=== PATIENT | male | born 1995 | race Hispanic/Latino ===

== ENCOUNTER 2018-09-07 17:36 | Inpatient (IN) | payer SELFPAY ==
[2018-09-07 18:49] LABS: Hemoglobin 5.4 g/dL (14.0-18.0); Mean Corpuscular HGB CONC 34.5 g/dL (32.0-36.0); Mean Corpuscular Volume 81.2 fL (78.0-98.0); Mean Platelet Volume 9.1 fL (7.4-10.4); Platelet Count 77 thou/uL (130-400); RBC Distribution Width 11.7 % (11.5-14.5); Red Blood Cell (RBC) Count 1.91 mill/uL (4.70-6.10); White Blood Cell (WBC) Count 3.7 thou/uL (4.8-10.8)
[2018-09-07 19:03] LABS: #Lymphocytes 0.6 thou/uL (1.20-3.40); #Monocytes 0.2 thou/uL (0.11-0.59); #Neutrophils 2.8 thou/uL (1.40-6.50); %Basophils 0.9 % (0.0-1.0); %Eosinophils 0.3 % (0.0-10.0); %Lymphocytes 15.9 % (21.0-51.0); %Monocytes 6.5 % (0.0-10.0); %Neutrophils 76.4 % (42.0-75.0); Elliptocytes SLIGHT = 2-5 cells (100X) (0-1/hpf); MDiff Complete? YES; Platelet Morphology Comment Appears Decreased
[2018-09-07 19:06] LABS: ALT (SGPT) 20 U/L (8-55); AST (SGOT) 12 U/L (5-34); Albumin 4.1 g/dL (3.5-5.0); Alkaline Phosphatase 64 U/L (40-150); Anion Gap 35 mmol/L (10-20); Bilirubin, Total 0.8 mg/dL (0.2-1.2); Calcium 6.4 mg/dL (7.8-10.44); Chloride 89 mmol/L (98-107); Globulin 2.7 g/dL (2.4-3.5); Glucose 97 mg/dL (70-105); Potassium 4.7 mmol/L (3.5-5.1); Protein, Total 6.8 g/dL (6.0-8.3); Sodium 127 mmol/L (136-145)
[2018-09-07 19:19] LABS: BUN (Urea Nitrogen) 263 mg/dL (8.9-20.6); Calc. Creatinine Clearance 0 mL/min (70-130); Carbon Dioxide 8 mmol/L (22-29); Estimated GFR-MDRD 2
[2018-09-07 20:07] LABS: INR-International Normal Ratio 1.3; PTT 34.4 SEC (22.9-36.1); Prothrombin Time 16.6 SEC (12.0-14.7)
[2018-09-07] MEDS ORDERED: Acetaminophen 325 MG TAB PO PRN (20:36)
[2018-09-07] MEDS ORDERED: Zolpidem Tartrate 5 MG TAB PO PRN (20:36)
[2018-09-07] MEDS ORDERED: Ondansetron PF 4 MG/2 ML Vial IVP PRN (20:36)
--- NOTE | 2018-09-07 21:18 | ULT ---
ULTRASOUND RENAL BILATERAL STANDARD 09/07/18 HISTORY: Renal failure. COMPARISON: None. FINDINGS: The kidneys are small and echogenic. No hydronephrosis. Right kidney measures 6 cm in length and left kidney measures 8 cm in length. Prevoid urinary bladder volume is 94 mL. IMPRESSION: Increased echotexture of small bilateral kidneys suggesting chronic medical renal disease. No eviden ce of obstructive uropathy. POS: MCKAYLA
[2018-09-07 21:30] LABS: Hemoglobin 5.4 g/dL (14.0-18.0); Reticulocyte Count 3.2 % (0.5-1.5)
[2018-09-07 21:36] LABS: MONO NEGATIVE CONTROL ZONE White (Negative) (White); Mononucleosis NEGATIVE (NEGATIVE)
[2018-09-07 21:37] LABS: MONO POSITIVE CONTROL Pink Line (Positive) (PINK/RED)
[2018-09-07 21:50] LABS: Elliptocytes MODERATE= 6-15 cells (100X) (0-1/hpf); Eosinophils 2 % (0-10); Lymphocytes 26 % (21-51); MDiff Complete? YES; Mean Corpuscular HGB CONC 35.5 g/dL (32.0-36.0); Mean Corpuscular Hemoglobin 28.3 pg (27.0-31.0); Mean Corpuscular Volume 79.7 fL (78.0-98.0); Mean Platelet Volume 9.2 fL (7.4-10.4); Neutrophil 72 % (42-75); Ovalocytes SLIGHT = 2-5 cells (100X) (0-1/hpf); Platelet Count 74 thou/uL (130-400); Platelet Morphology Comment Appears Decreased; RBC Distribution Width 11.7 % (11.5-14.5); Red Blood Cell (RBC) Count 1.92 mill/uL (4.70-6.10); White Blood Cell (WBC) Count 3.9 thou/uL (4.8-10.8)
[2018-09-07 23:55] LABS: Bilirubin Negative (Negative); Blood, Urine Small (Negative); Clarity CLEAR (Clear); Glucose, Urine (Dipstick) 100 mg/dL (Negative); Leukocyte Negative (Negative); Nitrite Negative (Negative); Protein, Urine (Dipstick) > or equal to 300 mg/dL (Neg-Trace); Specific Gravity, Urine 1.011 (1.002-1.036); Urobilinogen 0.2 mg/dL (0.2-1.0); pH, Urine 5.5 (5.0-9.0)
[2018-09-07 23:58] LABS: Bacteria/HPF None Seen HPF (None Seen); Hyaline Casts/LPF 0-3 HYALINE CAST LPF (0-3 Hyaline); Pathc Cast-AUWi Flag 0.13 (0-2.49); RBC/HPF 0-3 HPF (0-3); Squamous Epithelial 0-3 HPF (0-3)
[2018-09-08] MEDS ORDERED: cloNIDine 0.1 MG TAB ONE (00:16)
[2018-09-08] MEDS: cloNIDine 0.1 MG TAB PO PRN ×2 (00:20→22:21)
--- NOTE | 2018-09-08 01:57 | HP ---
ADMITTING COMPLAINT: Sent in from outside facility. HISTORY OF PRESENT ILLNESS: This is a 23-year-old male who says that over the last 3 to 4 days, he has just not been feeling well, and over the past 2 to 3 weeks, he has been having changes in taste, loss of appetite as well as sleep pattern reversal, and random shaking that he has noted in his hands. The patient states that he went to his PCP who bobbi labs today and told him immediately come to the emergency room. The patient had repeat blood work done in the emergency room and was found to be pancytopenic with WBC count of 3.7, hemoglobin of 5.4, and platelet count of 77. Of note, the patient was found to have normal coagulation panel; however, the basic metabolic panel shows sodium of 127, potassium 4.7, bicarb of 8, chloride of 89, anion gap of 35, BUN of 263, and creatinine too high to count. Urinalysis pending. The patient stated that apart from these symptoms prior, he has never had any history of any medical issues. No allergies. No drugs usage or no prescription medications or [id number] medications. The patient does state that he has never been vaccinated for anything at all. Has 2 children living at home. Denies any sick contacts. The patient is seen and examined in the ER. Family at bedside. All questions answered. ALLERGIES: NO KNOWN DRUG ALLERGIES. HOME MEDICATIONS: None. PAST MEDICAL HISTORY: None. SOCIAL HISTORY: Social drinker. Nonsmoker. REVIEW OF SYSTEMS: All systems reviewed, pertinent positive in HPI, otherwise negative. PHYSICAL EXAMINATION: VITAL SIGNS: Blood pressure 163/83, pulse of 100, O2 saturation 100% on room air, temperature 98.2, respiratory rate of 20. GENERAL: The patient is lying in bed with no acute distress. HEENT: Pupils are equal, round, and reactive to light and accommodation. Oral cavity moist and pink. No lymphadenopathy noted. NECK: Nontender and mobile. Thyroid appreciated. CARDIOVASCULAR: Regular rate and rhythm, S1 and S2. No murmurs, rubs, or gallops appreciated. RESPIRATORY: Clear to auscultation bilaterally. No respiratory distress. ABDOMEN: Positive bowel sounds. Soft and nontender. EXTREMITIES: 2+ peripheral pulses noted. No cyanosis, clubbing, or edema noted. NEUROLOGICAL: Cranial nerves II through XII intact. Alert and oriented x3. No loss of motor or sensory function. LABORATORY DATA: (Please see HPI) references above. ASSESSMENT AND PLAN: 1. Acute renal failure. 2. Pancytopenia with leukopenia, thrombocytopenia, and anemia. 3. Metabolic acidosis, high anion gap along with hidden metabolic alkalosis as well. 4. Hyponatremia. 5. Hypochloremia. PLAN: 1. At this point in time, we will admit the patient to the [facility]. Nephrology consulted. Start the patient on D5 with sodium bicarbonate 150 mEq, that should hopefully increase his base level and increase the bicarbonate level as well as serum sodium. 2. The patient wishes to remain a full code. 3. We will obtain a viral panel, specifically CMV, EBV, and BK as this may be a viral-induced pancytopenia. 4. Unable to explain renal injury with a viral history. 5. Urinalysis pending. 6. If urinalysis shows hematuria, it may be worthwhile to do autoimmune workup with C3, C4, anti-GBM, ANCA titers, IgA as it will be a consideration. However, this again would not explain the pancytopenia. 7. We will obtain blood cultures. 8. No signs of fever, sepsis, or anything along those lines for now, so we will hold off on antibiotics. We will place the patient on droplet precaution in case this is viral-induced pancytopenia. 9. Case and plan were discussed with the patient and family at length, they understand and agree with this plan. Job ID: [id number]
[2018-09-08] MEDS: Sodium Bicarbonate 150 MEQ in Dextrose 5% in Water 1,000 ML IV SCH ×3 (05:23→05:24)
--- NOTE | 2018-09-08 05:36 | CON ---
DATE OF CONSULTATION: 09/07/2018 CONSULTING PHYSICIAN: Dr. Alvarez. REASON FOR CONSULTATION: MARCO REASON FOR ADMISSION: Weakness and nosebleed. HISTORY OF PRESENT ILLNESS: A 23-year-old male with no significant past medical history, came to the hospital with weakness, nosebleeds, and fatigue. On evaluation, he was found to have pancytopenia and elevated renal function. The patient was also having some shaking and also a bad metallic taste in the mouth and loss of appetite for the last 1 to 2 weeks. PAST MEDICAL HISTORY: No significant past medical history. PAST SURGICAL HISTORY: Denies any surgeries. HOME MEDICATIONS: None. ALLERGIES: NO KNOWN DRUG ALLERGIES. SOCIAL HISTORY: No smoking, alcohol, or illicit drug abuse. FAMILY HISTORY: No history of any kidney disease. REVIEW OF SYSTEMS: CONSTITUTIONAL: Negative for weight loss or gain, ability to conduct usual activities. SKIN: Negative for rash, itching. EYES: Negative for double vision, pain. ENT/MOUTH: Negative for nose bleeding, neck stiffness, pain, tenderness. CARDIOVASCULAR: Negative for palpitations, dyspnea on exertion, orthopnea. RESPIRATORY: Negative for shortness of breath, wheezing, cough, hemoptysis, fever or night sweats. GASTROINTESTINAL: Negative for poor appetite, abdominal pain, heartburn, nausea, vomiting, constipation, or diarrhea. GENITOURINARY: Negative for urgency, frequency, dysuria, nocturia. MUSCULOSKELETAL: Negative for pain, swelling. NEUROLOGIC/PSYCHIATRIC: Negative for anxiety, depression. ALLERGY/IMMUNOLOGIC: Negative for skin rash, bleeding tendency. PHYSICAL EXAMINATION: GENERAL: Well-built male, in no apparent distress. VITAL SIGNS: Temperature 98.2, pulse 104, respiratory rate 20, and blood pressure 162/83. HEENT: Atraumatic and normocephalic. Oral mucosa is dry. NECK: Supple. CVS: S1 and S2 heard. Regular rate and rhythm. RESPIRATORY: Clear. GASTROINTESTINAL: Abdomen is soft. MUSCULOSKELETAL: 1+ edema. DERMATOLOGIC: No skin rash. NEUROLOGIC: Alert and awake. PSYCHIATRIC: Mood and affect normal. LABORATORY DATA: Hemoglobin is 5.4. Potassium is 4.7, BUN is 263, creatinine is greater than 25. Renal ultrasound with bilateral chronic echogenic kidneys. ASSESSMENT AND PLAN: 1. Acute kidney injury on chronic kidney disease versus chronic kidney disease stage - check renal ultrasound and PTH level. No acute indication for dialysis. 2. Severe acidosis is present and slight uremic symptoms. Plan is to have hydration, avoid nephrotoxins and if no significant improvement, we will plan for dialysis. 3. Hyponatremia. 4. Hypochloremia. 5. Severe acidosis - continue bicarbonate drip. 6. Azotemia. 7. Pancytopenia, PNH is a possibility. We will have Hem/Onc consult. We will check for hemolysis. 8. We will have CBC smear check by pathologist. 9. Will check urine studies to r/o proteinuria and hematuria. 10. Rule out viral etiology too. Prognosis is guarded. Avoid nephrotoxins. We will follow. Thank you for the consult. Job ID: [id number] MTDD
[2018-09-08 08:47] LABS: #Eosinphils 0.2 thou/uL (0.0-0.7); #Lymphocytes 0.6 thou/uL (1.20-3.40); #Monocytes 0.2 thou/uL (0.11-0.59); %Basophils 0.4 % (0.0-1.0); %Lymphocytes 14.5 % (21.0-51.0); %Monocytes 4.8 % (0.0-10.0); %Neutrophils 76.2 % (42.0-75.0); Hemoglobin 6.9 g/dL (14.0-18.0); Mean Corpuscular HGB CONC 35.3 g/dL (32.0-36.0); Mean Corpuscular Hemoglobin 28.6 pg (27.0-31.0); Mean Corpuscular Volume 81.1 fL (78.0-98.0); Mean Platelet Volume 9.8 fL (7.4-10.4); Platelet Count 74 thou/uL (130-400); RBC Distribution Width 12.7 % (11.5-14.5); Red Blood Cell (RBC) Count 2.41 mill/uL (4.70-6.10)
[2018-09-08 09:00] LABS: Anion Gap 34 mmol/L (10-20); Calcium 6.2 mg/dL (7.8-10.44); Carbon Dioxide 12 mmol/L (22-29); Chloride 88 mmol/L (98-107); Glucose 109 mg/dL (70-105); Potassium 3.7 mmol/L (3.5-5.1); Sodium 130 mmol/L (136-145)
[2018-09-08] MEDS ORDERED: Heparin 10,000 UNITS/ 10 ML VIAL ONE (09:00)
[2018-09-08 09:12] LABS: BUN (Urea Nitrogen) 262 mg/dL (8.9-20.6)
[2018-09-08 09:17] LABS: Calc. Creatinine Clearance 5 mL/min (70-130); Estimated GFR-MDRD 2
[2018-09-08 09:18] LABS: Ferritin 550.12 ng/mL (22-322)
[2018-09-08 09:20] LABS: Vitamin D, 25 Hydroxy 10.7 ng/ml (> 30.0)
[2018-09-08 09:33] LABS: Folate (Folic Acid) 8.2 ng/mL (7.0-31.4)
[2018-09-08 09:40] LABS: Iron 182 ug/dL (65-175); Iron Binding Capacity, Total 176 mcg/dL (261-462)
[2018-09-08] MEDS: Sodium Chloride 0.9% 1,000 ML IV SCH (11:21)
--- NOTE | 2018-09-08 11:37 | PDOC.PN ---
- Subjective Encounter Start Date: 09/08/18 Encounter Start Time: 11:34 Subjective: anorexia , nothing specific OW - Objective MAR Reviewed: Yes Vital Signs & Weight: Vital Signs (12 hours) Temp Pulse Resp BP Pulse Ox 09/08/18 07:17 100.1 F H 78 16 156/96 H 100 09/08/18 04:42 98.0 F 79 20 144/88 H 100 09/08/18 01:21 98.7 F 82 20 152/89 H 100 Weight Weight 178 lb 12.8 oz I&O: 09/07/18 09/08/18 09/09/18 06:59 06:59 06:59 Intake Total 1700 360 Balance 1700 360 Result Diagrams: 09/08/18 08:19 09/08/18 08:19 Phys Exam - Physical Examination Neck: no JVD Respiratory: clear to auscultation bilateral Cardiovascular: RRR, no significant murmur Gastrointestinal: soft, positive bowel sounds Musculoskeletal: no edema Dx/Plan (1) Acute renal failure Status: Acute (2) Metabolic acidosis Code(s): E87.2 - ACIDOSIS Status: Acute (3) Uremia Code(s): N19 - UNSPECIFIED KIDNEY FAILURE Status: Acute (4) Pancytopenia Code(s): D61.818 - OTHER PANCYTOPENIA Status: Acute (5) Hyperparathyroidism Code(s): E21.3 - HYPERPARATHYROIDISM, UNSPECIFIED Status: Acute - Plan small kidneys suggest non-reversable process -: serologic LAU in progress -: discuss with nephrology -: cont iv fluids with added bicarboate * .
[2018-09-08] MEDS ORDERED: Tuberculin PPD 0.1 ML VIAL I-DERMAL SCH (12:00)
[2018-09-08 12:22] LABS: Creatinine, Urine 57.74 mg/dL (63-166)
[2018-09-08 12:53] LABS: HBSAg Index 0.26 S/CO (0-0.99); Hep B Core Total Ab Non-Reactive (NonReactive); Hep B Core Total Index 0.05 S/CO (0-0.79); Hep B Surf Ag Non-Reactive S/CO (NonReactive)
[2018-09-08 12:55] LABS: Hep C IgG Ab Non-Reactive (NonReactive); Hep C Index 0.07 S/CO (0-0.79)
[2018-09-08 13:14] LABS: Hep B Surf AB Reactive (NonReactive)
--- NOTE | 2018-09-08 13:15 | PRG ---
DATE OF SERVICE: 09/08/2018 SUBJECTIVE: The patient was seen and examined at bedside and overnight events noted. Patient denies any shortness of breath or chest pain or palpitation. No history of nausea or vomiting or diarrhea or fever or chills or cramps. OBJECTIVE: This is a well-built male, in no apparent distress. VITAL SIGNS: Temperature 98.0, pulse 79, respiratory rate 20, blood pressure 144/88. HEENT: Atraumatic, normocephalic. Oral mucosa is moist NECK: Supple. CARDIOVASCULAR: S1, S2 heard. Rate and rhythm regular. RESPIRATORY: Clear to auscultation. GASTROINTESTINAL: Abdomen is soft. MUSCULOSKELETAL: No tenderness. No edema. DERMATOLOGIC: No skin rash. NEUROLOGIC: Alert and awake and oriented X3. No focal neurologic deficits. Moving all the extremities. PSYCHIATRIC: Mood and affect normal. LABS: Potassium is 3.7, BUN is 262, creatinine is more than 25. ASSESSMENT AND PLAN: 1. End-stage renal disease. The patient's ultrasound with ischemic nephropathy. Plan is to start on dialysis. 2. Severe acidosis, slightly better. Plan is to start dialysis. 3. Hyponatremia. 4. Azotemia. 5. Pancytopenia. 6. Follow with Hematology/Oncology. 7. Plan is to start on dialysis. 8. Vitamin D deficiency with secondary hyperparathyroidism. 9. Start on vitamin D. 10. Plan is to start on Calcitriol. 11. Anemia. We will add Epogen. 12. We will follow Case Management and Surgery Consult. 13. We will follow. Job ID: [id number]
[2018-09-08] MEDS: Epoetin (ESRD) 10,000 UNITS/ML VIAL IVP SCH (14:35)
[2018-09-08] MEDS: Nystatin 500,000 UNITS/5 ML UDCUP SSW SCH ×2 (15:41→22:20)
--- NOTE | 2018-09-09 00:20 | HP ---
HISTORY OF PRESENT ILLNESS: This is a 23-year-old male patient who graduated from high school. Lives with his parents. He is unemployed. He denies intake of any workout supplements or use of any drugs. He presented to the hospital yesterday evening with malaise. He started taking men's multivitamins. He had been feeling poorly over the past 2 to 3 weeks noting shakiness. He was noted to have a hemoglobin of 5.4, platelet count of 3.7, and to be very uremic, bicarb of 8, acidotic. He was admitted, treated medically, and I have been asked to see him today to place a dialysis catheter to initiate dialysis. His renal function has deteriorated. ALLERGIES: NONE. MEDICATIONS: None. PAST MEDICAL HISTORY: Noncontributory. TOBACCO: None. ALCOHOL: None. REVIEW OF SYSTEMS: Ten-point noncontributory. FAMILY HISTORY: Noncontributory. PHYSICAL EXAMINATION: VITAL SIGNS: Height 5 feet 7, weight 178 pounds, 28 BMI. Temperature 98 degrees, pulse 84, blood pressure 150/93. LUNGS: Clear to auscultation. CARDIAC: Regular rate and rhythm without murmur or gallop. ABDOMEN: Soft and nontender. No masses. EXTREMITIES: Unremarkable. LABORATORY DATA: White count 4, hemoglobin 6.9. Sodium 130, potassium 3.7, creatinine greater than 25, GFR 2, glucose 109. Renal ultrasound obtained, reveals chronic medical disease changes. No obstruction. Dr. Schofield has seen him and recommended initiation of hemodialysis urgently. His potassium is above 6 now. ASSESSMENT AND PLAN: Acute kidney injury. We will avoid IV access above his wrist. We will place a Trialysis catheter, obtain ultrasound vein mapping in both arms on a routine basis in case kidney function does not improve. He may need a more permanent dialysis access pending hospital course. Job ID: [id number]
--- NOTE | 2018-09-09 09:15 | OP ---
DATE OF PROCEDURE: 09/08/2018 PREOPERATIVE DIAGNOSES: 1. Acute renal failure. 2. Acidosis. 3. Severe uremia. 4. Need of acute dialysis access. 5. Hyperkalemia. POSTOPERATIVE DIAGNOSES: 1. Acute renal failure. 2. Acidosis. 3. Severe uremia. 4. Need of acute dialysis access. 5. Hyperkalemia. PROCEDURE PERFORMED: Right femoral vein Trialysis catheter. ANESTHESIA: 1% Xylocaine. DESCRIPTION OF PROCEDURE: With the patient at bedside, right groin was clipped of hair, prepared with ChloraPrep, and draped in routine fashion. Local anesthetic was infiltrated in the skin and subcutaneous tissue about the operative site. Trocar catheter was cannulated in the femoral vein, J-wire threaded, trocar catheter removed, skin was sharply, small and medium size dilators were placed with J-wire in the femoral vein and removed. The Trialysis catheter distal port was placed over the J-wire into the femoral vein, threaded without obstruction or restriction. J-wire removed, catheter secured with 2 interrupted suture of 3-0 silk. Sterile dressing applied, each port aspirated of blood and flushed with heparinized saline solution. Job ID: [id number]
[2018-09-09] MEDS: Nystatin 500,000 UNITS/5 ML UDCUP SSW SCH ×3 (09:30→21:20)
[2018-09-09] MEDS: Calcitriol 0.25 MCG CAP PO SCH (09:30)
--- NOTE | 2018-09-09 09:58 | ULT ---
BILATERAL UPPER EXTREMITY VENOUS ULTRASOUND: Date: 09/09/18 HISTORY: End-stage renal disease. Vein mapping for dialysis access. TECHNIQUE: Multiplanar Luong scale and color Doppler images were obtained in a bilateral upper extremity venous u ltrasound. Spectral analysis of the Doppler waveforms were performed. FINDINGS: The bilateral internal jugular veins and subclavian veins are patent without evidence of thrombus. Th e right brachial, radial, and ulnar arteries measure 4.3, 1.8, and 2.7 mm in size, respectively. The left brachial, radial, and ulnar arteries measure 4.4, 2.2, and 1.8 mm in size, respectively. RIGHT UPPER EXTREMITY CEPHALIC VEIN Shoulder 2.8 mm Upper arm 2.7 mm Mid upper arm 1.6 mm Just proximal to elbow 4.7 mm Just distal to elbow 2.8 mm Forearm 2.2 mm Wrist 1.9 mm BASILIC VEIN Shoulder 7.4 mm Upper arm 7.8 mm Mid upper arm 7.2 mm Just proximal to elbow 5.5 mm Just distal to elbow 3.8 mm Forearm 3.5 mm Wrist 1.8 mm LEFT UPPER EXTREMITY CEPHALIC VEIN Shoulder 3.4 mm Upper arm 3.4 mm Mid upper arm 2.9 mm Just proximal to elbow 3.0 mm Just distal to elbow 3.2 mm Forearm 2.6 mm Wrist 1.9 mm BASILIC VEIN Shoulder 5.2 mm Upper arm 5.7 mm Mid upper arm 6.0 mm Just proximal to elbow 6.1 mm Just distal to elbow 2.8 mm Forearm 2.1 mm Wrist 1.5 mm IMPRESSION: Vein mapping for dialysis access as above. POS: RAQUEL
[2018-09-09] MEDS ORDERED: Heparin 1,000 UNITS/ML VIAL ONE (11:11)
[2018-09-09] MEDS: Sodium Chloride 0.9% 1,000 ML IV SCH (14:13)
[2018-09-09] MEDS ORDERED: CEFAZOLIN 2 GM in Premix Bag 1 BAG IVPB SCH (15:00)
[2018-09-09 15:17] LABS: Kappa Lambda Light Chain Ratio 1.37 (0.26-1.65); Kappa Light Chains 122.2 mg/L (3.3-19.4); Lambda Light Chain 89.4 mg/L (5.7-26.3)
--- NOTE | 2018-09-09 15:39 | PRG ---
DATE OF SERVICE: 09/09/2018 SUBJECTIVE: Catalino Redmond is undergoing dialysis via temporary femoral vein dialysis and Trialysis catheter. Ultrasound of the kidneys reveal chronic lateral disease, atrophic kidneys. There is no obstructive uropathy. I have talked to Dr. Schofield, who has requested to place an AV fistula and a hemodialysis catheter. We will plan that Wednesday. We will plan cuffed tunneled hemodialysis catheter, IJ and left arm primary fistula. I have discussed with the patient and his family the recommendations, they consented and we will proceed with this Wednesday. Job ID: [id number]
[2018-09-09 15:47] LABS: Anion Gap 27 mmol/L (10-20); Calcium 6.1 mg/dL (7.8-10.44); Carbon Dioxide 16 mmol/L (22-29); Chloride 93 mmol/L (98-107); Glucose 104 mg/dL (70-105); Potassium 3.6 mmol/L (3.5-5.1); Sodium 132 mmol/L (136-145)
[2018-09-09 15:58] LABS: BUN (Urea Nitrogen) 188 mg/dL (8.9-20.6)
[2018-09-09 15:59] LABS: Calc. Creatinine Clearance 5 mL/min (70-130); Estimated GFR-MDRD 2
--- NOTE | 2018-09-09 17:36 | PDOC.PN ---
- Subjective Encounter Start Date: 09/09/18 Encounter Start Time: 13:00 Patient seen and examined for MARCO. Nausea +. No new complaints. No overnight events - Objective MAR Reviewed: Yes Vital Signs & Weight: Vital Signs (12 hours) Temp Pulse Resp BP Pulse Ox 09/09/18 16:52 91 16 165/97 H 97 09/09/18 12:04 89 18 154/94 H 99 09/09/18 09:30 100 09/09/18 07:46 98.7 F 88 18 158/98 H 100 Weight Admit Weight 178 lb 12.8 oz Weight 178 lb 12.8 oz I&O: 09/08/18 09/09/18 09/10/18 06:59 06:59 06:59 Intake Total 1700 3098.75 Output Total 775 Balance 1700 2323.75 Result Diagrams: 09/08/18 08:19 09/09/18 14:37 EKG Reviewed by me: Yes (Tele SR) Phys Exam - Physical Examination Constitutional: NAD Respiratory: no wheezing, no rhonchi Cardiovascular: RRR, no rub Gastrointestinal: soft, non-tender, positive bowel sounds Musculoskeletal: no edema Neurological: moves all 4 limbs Dx/Plan - Plan DVT proph w/SCDs 1. MARCO/ESRD started on HD 2. 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 Metabolic acidosis due to #1 4. Vit D def 5. Hyponatremia PLAN: Dialysis initiated Cont Vit D supp AM labs Cont other meds as below Microbiology 09/08/18 08:31 Venous blood - Right Hand Blood Culture - Preliminary Specimen has been received and culture in progress. No Growth to date. 09/08/18 08:19 Venous blood - Right Arm Blood Culture - Preliminary Specimen has been received and culture in progress. No Growth to date. Laboratory Tests 09/08/18 09/08/18 08:19 08:19 Iron 182 H TIBC 176 L % Saturation 103 H Ferritin 550.12 H 25-OH Vitamin D Total 10.7 L Review of Systems - Review of Systems Respiratory: negative: Cough, Dry, Shortness of Breath, Hemoptysis, SOB with Excertion, Pleuritic Pain, Sputum, Wheezing Cardiovascular: negative: chest pain, palpitations, orthopnea, paroxysmal nocturnal dyspnea, edema, light headedness, other Gastrointestinal: negative: Nausea, Vomiting, Abdominal Pain, Diarrhea, Constipation, Melena, Hematochezia, Other - Medications/Allergies Allergies/Adverse Reactions: Allergies Allergy/AdvReac Type Severity Reaction Status Date / Time No Known Drug Allergies Allergy Verified 09/08/18 09:41 Medications: Current Medications Acetaminophen (Tylenol) 650 mg PO Q4H PRN PRN Reason: Headache/Fever/Mild Pain (1-3) Calcitriol (Rocaltrol) 0.25 mcg PO DAILY [facility] Last Admin: 09/09/18 09:30 Dose: 0.25 mcg Cholecalciferol (Vitamin D3) 2,000 units PO BID [facility] Last Admin: 09/09/18 09:30 Dose: 2,000 units Clonidine (Catapres) 0.1 mg PO Q4H PRN PRN Reason: FOR SBP > 170mmHg Last Admin: 09/08/18 22:21 Dose: 0.1 mg Epoetin Jose (Procrit) 10,000 units IVP TuThSa [facility] Last Admin: 09/08/18 14:35 Dose: 10,000 units Sodium Chloride (Normal Saline 0.9%) 1,000 mls @ 50 mls/hr IV .Q20H [facility] Last Admin: 09/09/18 14:13 Dose: 1,000 mls Cefazolin Sodium/Dextrose 2 gm (/ Device) 50 mls @ 100 mls/hr IVPB ONCALL-OR [facility] Nystatin (Mycostatin) 500,000 units SSW TID [facility] Last Admin: 09/09/18 14:13 Dose: 500,000 units Ondansetron HCl (Zofran) 4 mg IVP Q6H PRN PRN Reason: Nausea/Vomiting Last Admin: 09/09/18 17:08 Dose: 4 mg Sodium Chloride (Flush - Normal Saline) 10 ml IVF Q12HR PRN PRN Reason: Saline Flush Last Admin: 09/08/18 09:42 Dose: 10 ml Tuberculin PPD (Aplisol) 0.1 ml I-DERMAL ONE [facility] Stop: 09/11/18 12:01 Last Admin: 09/08/18 13:10 Dose: 0.1 ml Zolpidem Tartrate (Ambien) 5 mg PO HSPRN PRN PRN Reason: Insomnia
--- NOTE | 2018-09-09 19:11 | PRG ---
DATE OF SERVICE: 09/09/2018 SUBJECTIVE: Patient was seen and examined at bedside and overnight events noted. Patient denies any shortness of breath or chest pain or palpitation. No history of nausea or vomiting or diarrhea or fever or chills or cramps. OBJECTIVE: GENERAL: This is a well-built male, in no acute distress. VITAL SIGNS: Temperature 98.7. Heart rate 88. Respiratory rate 18. Blood pressure 165/97. HEENT: Atraumatic, normocephalic. Oral mucosa is moist NECK: Supple. CARDIOVASCULAR: S1, S2 heard. Rate and rhythm regular. RESPIRATORY: Clear to auscultation. GASTROINTESTINAL: Abdomen is soft. MUSCULOSKELETAL: No tenderness. No edema. DERMATOLOGIC: No skin rash. NEUROLOGIC: Alert and awake and oriented X3. No focal neurologic deficits. Moving all the extremities. PSYCHIATRIC: Mood and affect normal. LABORATORY DATA: Potassium is 3.6, BUN is 188, creatinine is more than 25. ASSESSMENT: 1. End-stage renal disease. Continue on dialysis as tolerated, most likely ischemic nephropathy. 2. Anemia, monitor. 3. Severe acidosis. 4. . PLAN: Plan is to continue on dialysis. Case Management consult for outpatient placement. Job ID: [id number]
[2018-09-10 06:01] LABS: #Lymphocytes 0.2 thou/uL (1.20-3.40); #Monocytes 0.3 thou/uL (0.11-0.59); #Neutrophils 5.6 thou/uL (1.40-6.50); %Eosinophils 0.1 % (0.0-10.0); %Lymphocytes 3.9 % (21.0-51.0); %Monocytes 4.5 % (0.0-10.0); %Neutrophils 91.5 % (42.0-75.0); Hemoglobin 6.7 g/dL (14.0-18.0); Mean Corpuscular HGB CONC 36.4 g/dL (32.0-36.0); Mean Corpuscular Hemoglobin 29.6 pg (27.0-31.0); Mean Corpuscular Volume 81.2 fL (78.0-98.0); Mean Platelet Volume 9.6 fL (7.4-10.4); Platelet Count 58 thou/uL (130-400); RBC Distribution Width 12.4 % (11.5-14.5); Red Blood Cell (RBC) Count 2.25 mill/uL (4.70-6.10); White Blood Cell (WBC) Count 6.1 thou/uL (4.8-10.8)
[2018-09-10 06:19] LABS: Anion Gap 17 mmol/L (10-20); BUN (Urea Nitrogen) 92 mg/dL (8.9-20.6); Calc. Creatinine Clearance 9 mL/min (70-130); Calcium 6.9 mg/dL (7.8-10.44); Carbon Dioxide 24 mmol/L (22-29); Chloride 98 mmol/L (98-107); Estimated GFR-MDRD 4; Glucose 89 mg/dL (70-105); Potassium 3.2 mmol/L (3.5-5.1); Sodium 136 mmol/L (136-145)
[2018-09-10] MEDS: Calcitriol 0.25 MCG CAP PO SCH (09:06)
[2018-09-10] MEDS: Folic Acid 1 MG TAB PO SCH (09:06)
[2018-09-10] MEDS: Cyanocobalamin (Vitamin B-12) 1,000 MCG TAB PO SCH (09:06)
[2018-09-10] MEDS: Nystatin 500,000 UNITS/5 ML UDCUP SSW SCH ×3 (09:06→20:45)
[2018-09-10] MEDS: Epoetin (ESRD) 10,000 UNITS/ML VIAL IVP SCH (13:10)
--- NOTE | 2018-09-10 15:04 | PRG ---
DATE OF SERVICE: 09/10/2018 SUBJECTIVE: Patient was seen and examined at bedside and overnight events noted. Patient denies any shortness of breath or chest pain or palpitation. No history of nausea or vomiting or diarrhea or fever or chills or cramps. OBJECTIVE: GENERAL: This is a well-built male, in no apparent distress. VITAL SIGNS: Temperature Respiratory rate 18. Blood pressure 152/80. HEENT: Atraumatic, normocephalic. Oral mucosa is moist. NECK: Supple. CARDIOVASCULAR: S1, S2 heard. Rate and rhythm regular. RESPIRATORY: Clear to auscultation. GASTROINTESTINAL: Abdomen is soft. MUSCULOSKELETAL: No tenderness. No edema. DERMATOLOGIC: No skin rash. NEUROLOGIC: Alert and awake and oriented x3. No focal neurologic deficits. Moving all the extremities. PSYCHIATRIC: Mood and affect normal. LABORATORY DATA: Potassium is 3.2, BUN is 92, and creatinine is 15.2 ASSESSMENT AND PLAN: 1. End-stage renal disease. Continue on hemodialysis. Follow with Case Management for outpatient placement. 2. Pancytopenia. We would recommend Hematology consult. We will transfuse with next dialysis. 3. Severe acidosis, better. 4. Edema, controlled. 5. Hypertension, stable. 6. Secondary hyperparathyroidism. Continue on vitamin D and calcitriol. Thank you for the consult. We will follow. Job ID: [id number]
--- NOTE | 2018-09-10 17:24 | PDOC.PN ---
- Subjective Encounter Start Date: 09/10/18 Encounter Start Time: 10:45 Patient seen and examined for MARCO. Nausea +. No new complaints. No overnight events - Objective MAR Reviewed: Yes Vital Signs & Weight: Vital Signs (12 hours) Temp Pulse Resp BP Pulse Ox 09/10/18 16:10 99.3 F 100 18 155/98 H 98 09/10/18 14:22 97 09/10/18 14:05 99.2 F 96 18 173/97 H 97 09/10/18 11:52 98.6 F 99 16 152/88 H 97 09/10/18 09:06 97 09/10/18 07:41 99.0 F 97 16 162/96 H 96 Weight Admit Weight 178 lb 12.8 oz Weight 178 lb I&O: 09/09/18 09/10/18 09/11/18 06:59 06:59 06:59 Intake Total 3098.75 1080 Output Total 775 800 Balance 2323.75 280 Result Diagrams: 09/10/18 05:40 09/10/18 05:40 EKG Reviewed by me: Yes Phys Exam - Physical Examination Constitutional: NAD Respiratory: no wheezing, no rhonchi Cardiovascular: RRR, no rub Gastrointestinal: soft, positive bowel sounds Musculoskeletal: no edema Dx/Plan - Plan DVT proph w/SCDs 1. MARCO/ESRD started on HD 2. 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 Metabolic acidosis due to #1 4. Vit D def 5. Hyponatremia/Hypokalemia 6. Secondary hyperparathyroidism PLAN: Dialysis per Nephrology IVF dced Cont Vit D supplementation Epoegen per Nephro Cont other meds as below AM labs Transfer to medical Review of Systems - Review of Systems Cardiovascular: negative: chest pain, palpitations, orthopnea, paroxysmal nocturnal dyspnea, edema, light headedness, other Gastrointestinal: negative: Nausea, Vomiting, Abdominal Pain, Diarrhea, Constipation, Melena, Hematochezia, Other - Medications/Allergies Allergies/Adverse Reactions: Allergies Allergy/AdvReac Type Severity Reaction Status Date / Time No Known Drug Allergies Allergy Verified 09/08/18 09:41 Medications: Current Medications Acetaminophen (Tylenol) 650 mg PO Q4H PRN PRN Reason: Headache/Fever/Mild Pain (1-3) Calcitriol (Rocaltrol) 0.25 mcg PO DAILY [facility] Last Admin: 03/23/19 09:06 Dose: 0.25 mcg Cholecalciferol (Vitamin D3) 2,000 units PO BID [facility] Last Admin: 09/10/18 09:06 Dose: 2,000 units Clonidine (Catapres) 0.1 mg PO Q4H PRN PRN Reason: FOR SBP > 170mmHg Last Admin: 09/08/18 22:21 Dose: 0.1 mg Cyanocobalamin (Vitamin B-12) 1,000 mcg PO DAILY [facility] Last Admin: 09/10/18 09:06 Dose: 1,000 mcg Epoetin Jose (Procrit) 10,000 units IVP TuThSa [facility] Last Admin: 09/10/18 13:10 Dose: 10,000 units Folic Acid (Folvite) 1 mg PO DAILY [facility] Last Admin: 09/10/18 09:06 Dose: 1 mg Cefazolin Sodium/Dextrose 2 gm (/ Device) 50 mls @ 100 mls/hr IVPB ONCALL-OR [facility] Nystatin (Mycostatin) 500,000 units SSW TID [facility] Last Admin: 09/10/18 15:05 Dose: 500,000 units Ondansetron HCl (Zofran) 4 mg IVP Q6H PRN PRN Reason: Nausea/Vomiting Last Admin: 09/09/18 17:08 Dose: 4 mg Sodium Chloride (Flush - Normal Saline) 10 ml IVF Q12HR PRN PRN Reason: Saline Flush Last Admin: 09/08/18 09:42 Dose: 10 ml Tuberculin PPD (Aplisol) 0.1 ml I-DERMAL ONE [facility] Stop: 09/11/18 12:01 Last Admin: 09/08/18 13:10 Dose: 0.1 ml Zolpidem Tartrate (Ambien) 5 mg PO HSPRN PRN PRN Reason: Insomnia
[2018-09-11 05:12] LABS: #Lymphocytes 0.6 thou/uL (1.20-3.40); #Monocytes 0.3 thou/uL (0.11-0.59); #Neutrophils 4.8 thou/uL (1.40-6.50); %Basophils 0.6 % (0.0-1.0); %Eosinophils 0.1 % (0.0-10.0); %Lymphocytes 10.7 % (21.0-51.0); %Monocytes 5.8 % (0.0-10.0); %Neutrophils 82.9 % (42.0-75.0); Hemoglobin 6.6 g/dL (14.0-18.0); Mean Corpuscular HGB CONC 34.9 g/dL (32.0-36.0); Mean Corpuscular Hemoglobin 29.1 pg (27.0-31.0); Mean Corpuscular Volume 83.4 fL (78.0-98.0); Mean Platelet Volume 10.1 fL (7.4-10.4); Platelet Count 55 thou/uL (130-400); RBC Distribution Width 12.4 % (11.5-14.5); Red Blood Cell (RBC) Count 2.26 mill/uL (4.70-6.10); White Blood Cell (WBC) Count 5.8 thou/uL (4.8-10.8)
[2018-09-11 05:26] LABS: Anion Gap 17 mmol/L (10-20); BUN (Urea Nitrogen) 104 mg/dL (8.9-20.6); Calc. Creatinine Clearance 8 mL/min (70-130); Calcium 7.5 mg/dL (7.8-10.44); Carbon Dioxide 25 mmol/L (22-29); Chloride 96 mmol/L (98-107); Estimated GFR-MDRD 4; Glucose 90 mg/dL (70-105); Potassium 3.4 mmol/L (3.5-5.1); Sodium 135 mmol/L (136-145)
[2018-09-11 05:28] LABS: Phosphorus 9.1 mg/dL (2.3-4.7)
[2018-09-11] MEDS: Sevelamer Carbonate 800 MG TAB PO SCH ×3 (07:56→16:45)
[2018-09-11] MEDS: Calcitriol 0.25 MCG CAP PO SCH (07:57)
[2018-09-11] MEDS: Nystatin 500,000 UNITS/5 ML UDCUP SSW SCH ×3 (07:57→20:11)
[2018-09-11] MEDS: Cyanocobalamin (Vitamin B-12) 1,000 MCG TAB PO SCH (07:57)
[2018-09-11] MEDS: Folic Acid 1 MG TAB PO SCH (07:57)
--- NOTE | 2018-09-11 20:18 | PRG ---
DATE OF SERVICE: 09/11/2018 SUBJECTIVE: The patient was seen and examined at bedside and overnight events noted. The patient denies any shortness of breath or chest pain or palpitation. No history of nausea or vomiting or diarrhea or fever or chills or cramps. OBJECTIVE: GENERAL: This is a well-built male, in no apparent distress. VITAL SIGNS: Temperature 98.6, pulse 88, respiratory rate 16, blood pressure 164/100. HEENT: Atraumatic, normocephalic. Oral mucosa is moist NECK: Supple. CARDIOVASCULAR: S1, S2 heard. Rate and rhythm regular. RESPIRATORY: Clear to auscultation. GASTROINTESTINAL: Abdomen is soft. MUSCULOSKELETAL: No tenderness. No edema. DERMATOLOGIC: No skin rash. NEUROLOGIC: Alert and awake and oriented X3. No focal neurologic deficits. Moving all the extremities. PSYCHIATRIC: Mood and affect normal. LABORATORY DATA: Potassium 3.4, BUN is 104, creatinine 17.7. ASSESSMENT AND PLAN: 1. End-stage renal disease. We will continue on hemodialysis as tolerated. Follow up with Case Management for outpatient placement. Plan is to have dialysis tomorrow and then Wednesday, Wednesday, and Wednesday. 2. Pancytopenia. Would recommend Hematology evaluation. 3. Severe acidosis. 4. Edema, controlled. 5. Hypertension. 6. Secondary hyperparathyroidism. Plan is to continue dialysis. Follow with Case Management. Appreciate help from surgery. Follow with Hematology/Oncology for pancytopenia. Job ID: [id number]
--- NOTE | 2018-09-11 22:05 | PDOC.PN ---
- Subjective Encounter Start Date: 09/11/18 Encounter Start Time: 14:00 Patient seen and examined. No new complaints. No overnight events - Objective MAR Reviewed: Yes Vital Signs & Weight: Vital Signs (12 hours) Temp Pulse Resp BP Pulse Ox 09/11/18 20:00 98.6 F 88 16 152/100 H 96 Weight Admit Weight 178 lb 12.8 oz Weight 178 lb I&O: 09/10/18 09/11/18 09/12/18 06:59 06:59 06:59 Intake Total 1080 120 600 Output Total 800 Balance 280 120 600 Result Diagrams: 09/11/18 04:55 09/11/18 04:55 Phys Exam - Physical Examination Constitutional: NAD Respiratory: no wheezing, no rhonchi Cardiovascular: RRR, no rub Gastrointestinal: soft, non-tender, positive bowel sounds Musculoskeletal: no edema Neurological: moves all 4 limbs Dx/Plan - Plan DVT proph w/SCDs 1. MARCO/ESRD started on HD 2. 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 Metabolic acidosis due to #1 4. Vit D def 5. Hyponatremia/Hypokalemia 6. Secondary hyperparathyroidism PLAN: Dialysis per Nephrology Dialysis access in AM Cont other meds as below AM labs Review of Systems - Review of Systems Respiratory: negative: Cough, Dry, Shortness of Breath, Hemoptysis, SOB with Excertion, Pleuritic Pain, Sputum, Wheezing Cardiovascular: negative: chest pain, palpitations, orthopnea, paroxysmal nocturnal dyspnea, edema, light headedness, other - Medications/Allergies Allergies/Adverse Reactions: Allergies Allergy/AdvReac Type Severity Reaction Status Date / Time No Known Drug Allergies Allergy Verified 09/08/18 09:41 Medications: Current Medications Acetaminophen (Tylenol) 650 mg PO Q4H PRN PRN Reason: Headache/Fever/Mild Pain (1-3) Calcitriol (Rocaltrol) 0.25 mcg PO DAILY [facility] Last Admin: 09/11/18 07:57 Dose: 0.25 mcg Cholecalciferol (Vitamin D3) 2,000 units PO BID [facility] Last Admin: 09/11/18 20:12 Dose: 2,000 units Clonidine (Catapres) 0.1 mg PO Q4H PRN PRN Reason: FOR SBP > 170mmHg Last Admin: 03/21/19 22:21 Dose: 0.1 mg Cyanocobalamin (Vitamin B-12) 1,000 mcg PO DAILY [facility] Last Admin: 09/11/18 07:57 Dose: 1,000 mcg Epoetin Jose (Procrit) 10,000 units IVP [facility] Folic Acid (Folvite) 1 mg PO DAILY [facility] Last Admin: 09/11/18 07:57 Dose: 1 mg Cefazolin Sodium/Dextrose 2 gm (/ Device) 50 mls @ 100 mls/hr IVPB ONCALL-OR [facility] Nystatin (Mycostatin) 500,000 units SSW TID [facility] Last Admin: 09/11/18 20:11 Dose: 500,000 units Ondansetron HCl (Zofran) 4 mg IVP Q6H PRN PRN Reason: Nausea/Vomiting Last Admin: 09/09/18 17:08 Dose: 4 mg Sevelamer Carbonate (Renvela) 1,600 mg PO TID[facility] Last Admin: 09/11/18 16:45 Dose: 1,600 mg Sodium Chloride (Flush - Normal Saline) 10 ml IVF Q12HR PRN PRN Reason: Saline Flush Last Admin: 09/08/18 09:42 Dose: 10 ml Zolpidem Tartrate (Ambien) 5 mg PO HSPRN PRN PRN Reason: Insomnia
[2018-09-12 05:47] LABS: #Lymphocytes 0.7 thou/uL (1.20-3.40); #Monocytes 0.5 thou/uL (0.11-0.59); #Neutrophils 4.8 thou/uL (1.40-6.50); %Basophils 0.6 % (0.0-1.0); %Eosinophils 0.1 % (0.0-10.0); %Lymphocytes 11.8 % (21.0-51.0); %Monocytes 7.6 % (0.0-10.0); %Neutrophils 79.9 % (42.0-75.0); Hemoglobin 6.1 g/dL (14.0-18.0); Mean Corpuscular HGB CONC 34.2 g/dL (32.0-36.0); Mean Corpuscular Volume 84.8 fL (78.0-98.0); Mean Platelet Volume 10.3 fL (7.4-10.4); Platelet Count 73 thou/uL (130-400); RBC Distribution Width 12.3 % (11.5-14.5); Red Blood Cell (RBC) Count 2.09 mill/uL (4.70-6.10)
[2018-09-12 05:58] LABS: Anion Gap 21 mmol/L (10-20); BUN (Urea Nitrogen) 113 mg/dL (8.9-20.6); Calc. Creatinine Clearance 7 mL/min (70-130); Calcium 7.2 mg/dL (7.8-10.44); Carbon Dioxide 23 mmol/L (22-29); Chloride 96 mmol/L (98-107); Estimated GFR-MDRD 3; Glucose 94 mg/dL (70-105); Potassium 3.6 mmol/L (3.5-5.1); Sodium 136 mmol/L (136-145)
[2018-09-12] MEDS: Nystatin 500,000 UNITS/5 ML UDCUP SSW SCH ×3 (08:20→20:46)
[2018-09-12] MEDS: Sevelamer Carbonate 800 MG TAB PO SCH ×3 (08:20→16:56)
[2018-09-12] MEDS: Cyanocobalamin (Vitamin B-12) 1,000 MCG TAB PO SCH (08:20)
[2018-09-12] MEDS: Calcitriol 0.25 MCG CAP PO SCH (08:20)
[2018-09-12] MEDS: Folic Acid 1 MG TAB PO SCH (08:20)
[2018-09-12] MEDS: Epoetin (NON-ESRD) 20,000 UNITS/ML ML IVP SCH (08:20)
[2018-09-12] MEDS ORDERED: Epoetin (NON-ESRD) 20,000 UNITS/ML ML IVP SCH (09:00)
[2018-09-12] MEDS ORDERED: Heparin 10,000 UNITS/ 10 ML VIAL ONE ×2 (11:11→16:45)
[2018-09-12] MEDS ORDERED: Protamine Sulfate 50 MG/5 ML VIAL ONE (11:22)
[2018-09-12] MEDS ORDERED: Heparin 5,000 UNITS/ML VIAL ONE (11:22)
[2018-09-12] MEDS ORDERED: Lidocaine 2% PF 5 ML VIAL ONE (11:22)
[2018-09-12] MEDS ORDERED: Sodium Chloride 0.9% 0 ML ONE (11:22)
[2018-09-12] MEDS ORDERED: Bupivacaine/Epinephrine 0.25% 30 ML VIAL ONE (11:22)
[2018-09-12] MEDS ORDERED: Fentanyl 100 MCG/2 ML VIAL ONE (11:24)
[2018-09-12] MEDS ORDERED: traMADol HCl 50 MG TAB PO PRN ×2 (12:07)
[2018-09-12] MEDS ORDERED: Acetaminophen 500 MG TAB PO PRN (12:07)
--- NOTE | 2018-09-12 13:22 | PRG ---
DATE OF SERVICE: 09/12/2018 SUBJECTIVE: This is a 23-year-old gentleman being seen for end-stage renal disease. The patient denied nausea, vomiting, or chest pain. OBJECTIVE: GENERAL: The patient is awake and alert. VITAL SIGNS: Afebrile, pulse 81, breathing 16, and blood pressure 165/88. GENERAL APPEARANCE AND MENTAL STATUS: Fair. HEAD/NECK: Normocephalic. Atraumatic. EYES: EOMI. No deformity. EARS: Clear. No ulcers. NOSE: Intact. No lesions. MOUTH: Clear. No discharge. THROAT: Clear. No exudate. LUNGS: Clear. No crackles. CARDIAC: S1, S2. No rub. ABDOMEN: Benign. Bowel sounds positive. GENITALIA/RECTUM: Rodrigues absent. BACK/EXTREMITIES: Edema 0+. NEUROLOGICAL: Alert and motor intact. SKIN: LYMPHATICS: LABORATORY DATA: Reviewed. ASSESSMENT AND PLAN: 1. Stage 6 chronic kidney disease. Plan dialysis. 2. Hypertension, stable. 3. Anemia, stable. Medication based on GFR appropriate. Job ID: [id number]
[2018-09-12] MEDS ORDERED: Ondansetron HCl/PF 4 MG/2 ML Vial IVP PRN ×2 (13:23)
[2018-09-12] MEDS ORDERED: Promethazine HCl 25 MG/ML VIAL SLOW IVP PRN ×2 (13:23)
[2018-09-12] MEDS ORDERED: Promethazine HCl 25 MG/ML VIAL IM PRN ×2 (13:23)
[2018-09-12 13:46] VITALS: BMI 27.8
--- NOTE | 2018-09-12 14:03 | OP ---
DATE OF PROCEDURE: 09/07/2018 PREOPERATIVE DIAGNOSIS: End-stage renal disease. POSTOPERATIVE DIAGNOSIS: End-stage renal disease. PROCEDURE PERFORMED: Right-IJ cuffed tunneled hemodialysis catheter, ultrasound and fluoroscopy used. Left Mihai fistula, 4 mm coronary dilator calibration and cephalic vein to side radial artery. ANESTHESIA: General, local with 0.5% Marcaine with epinephrine 30 mL mixed with 2% Xylocaine 10 mL. DESCRIPTION OF PROCEDURE: The patient was taken to the operating room, underwent general anesthesia. Neck and chest, left upper extremity were prepared with ChloraPrep and draped in routine fashion. Local anesthetic was infiltrated into the skin and subcutaneous tissue about the operative sites. Using ultrasound guidance, right internal jugular vein was cannulated with a trocar catheter, J-wire threaded, trocar catheter removed. Skin was enlarged sharply. Stab incision was made over the right chest using a tunneling device and precurved [employer] cuffed-tunneled hemodialysis catheter tunneled between the two incisions, placed the fabric cuff beneath the skin exit site. Catheter was secured with 2 interrupted suture of 3-0 nylon and sterile dressings applied. Small and medium sized dilators were placed over the J-wire into the internal jugular vein and removed. Dilator and Peel-Away sheath placed with J-wire in superior vena cava, and dilator and J-wire were removed. Catheter was placed through the Peel-Away sheath. Peel-Away sheath removed. Fluoroscopically, catheter noted to be in good position. Each port aspirated blood and flushed with saline solution and then heparinized saline solution with 1000 units of heparin per mL indicating volume of the port. Platysma was approximated with 4-0 Monocryl, skin with subdermal 4-0 Monocryl and [place] glue applied. Incision was made in the left wrist, carried down through the skin and subcutaneous tissue longitudinally. Radial artery and cephalic vein dissected free. Both of excellent quality. Cephalic vein on the hand side ligated with silk tie, divided, spatulated, and interrogated with coronary dilators, passing coronary dilators from 2 mm to 4 mm coronary dilator without obstruction. Heparinized saline infiltrated into the cephalic vein. A bulldog clamp applied and radial artery clamped proximally and distally. Longitudinal arteriotomy was made sharply, elongated with Álvarez scissors an end vein to side radial artery anastomosis was created with continuous suture of 6-0 Prolene. At completion anastomosis, good Doppler signals on the cephalic vein outflow. Good hemostasis noted. The patient given 25 mg of protamine intravenously. Subcutaneous tissue was approximated with 3-0 Monocryl, skin with subdermal 4-0 Monocryl, and [place] glue applied. Job ID: [id number]
--- NOTE | 2018-09-12 14:54 | RAD ---
RADIOGRAPH CHEST 1 VIEW: Date: 09/12/2018 Time: 1:31 p.m. HISTORY: A 23-year-old male, status post dialysis catheter placement. COMPARISON: None. FINDINGS: There is a dialysis catheter vertically oriented, descending from the supraclavicular region, with th e distal tips overlying the SVC/right atrial junction and the upper right atrium. The upper loop of the catheter is excluded from the field of view. This is a supine image, which would be insensitive for pneumothorax infection. The cardiomediastinal silhouette is normal. The lungs are clear. The l ateral costophrenic angles are sharp. IMPRESSION: Right-sided double-lumen dialysis catheter. FLORINA [] POS: [facility]
[2018-09-12 15:47] LABS: ANA Symphony (Qualitative) Negative (Negative); ANA Symphony (Quantitative) 0.2 Ratio (< 0.7 Negative); dsDNA IgG Antibody 1.8 IU/mL (<10 Negative)
[2018-09-12] MEDS ORDERED: Lidocaine 1% PF 5 ML VIAL ONE (16:45)
[2018-09-12] MEDS ORDERED: ePHEDrine 50 MG/ML VIAL ONE (16:45)
[2018-09-12] MEDS ORDERED: PROPOFOL 200 MG/20 ML VIAL ONE (16:45)
--- NOTE | 2018-09-12 16:45 | PDOC.PN ---
- Subjective Encounter Start Date: 09/12/18 Encounter Start Time: 16:42 Patient seen and examined for MARCO. No new complaints. No overnight events - Objective MAR Reviewed: Yes Vital Signs & Weight: Vital Signs (12 hours) Temp Pulse Pulse Resp BP BP Pulse Ox 09/12/18 14:00 98.5 F 90 18 163/96 H 100 09/12/18 09:22 97.8 F 76 18 163/107 H 09/12/18 09:00 98 F 82 18 169/107 H 09/12/18 08:45 98 F 89 18 156/98 H 09/12/18 08:30 98 F 89 18 165/102 H 09/12/18 08:00 98.8 F 90 20 163/110 H 100 Weight Admit Weight 178 lb 12.8 oz Weight 177 lb 14.4 oz I&O: 09/11/18 09/12/18 09/13/18 06:59 06:59 06:59 Intake Total 120 840 350 Balance 120 840 350 Result Diagrams: 09/12/18 04:55 09/12/18 04:55 Phys Exam - Physical Examination Constitutional: NAD Respiratory: no wheezing, no rhonchi Cardiovascular: RRR, no rub Gastrointestinal: soft, non-tender, positive bowel sounds Dx/Plan - Plan DVT proph w/SCDs 1. MARCO/ESRD started on HD 2. 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 Metabolic acidosis due to #1 4. Vit D def 5. Hyponatremia/Hypokalemia 6. Secondary hyperparathyroidism PLAN: PRBC transfusion with Dialysis s/p Dialysis access Await outpt dialysis access Cont other meds as below Hematology input appreciated AM labs USG Abd to r/o hepatosplenomegaly Review of Systems - Review of Systems Respiratory: negative: Cough, Dry, Shortness of Breath, Hemoptysis, SOB with Excertion, Pleuritic Pain, Sputum, Wheezing Cardiovascular: negative: chest pain, palpitations, orthopnea, paroxysmal nocturnal dyspnea, edema, light headedness, other - Medications/Allergies Allergies/Adverse Reactions: Allergies Allergy/AdvReac Type Severity Reaction Status Date / Time No Known Drug Allergies Allergy Verified 09/08/18 09:41 Medications: Current Medications Acetaminophen (Tylenol) 650 mg PO Q4H PRN PRN Reason: Headache/Fever/Mild Pain (1-3) Acetaminophen (Tylenol) 1,000 mg PO Q6H PRN PRN Reason: Moderate to Severe Pain (6-10) Calcitriol (Rocaltrol) 0.25 mcg PO DAILY [facility] Last Admin: 09/12/18 08:20 Dose: Not Given Cholecalciferol (Vitamin D3) 2,000 units PO BID [facility] Last Admin: 09/12/18 08:20 Dose: Not Given Clonidine (Catapres) 0.1 mg PO Q4H PRN PRN Reason: FOR SBP > 170mmHg Last Admin: 09/08/18 22:21 Dose: 0.1 mg Cyanocobalamin (Vitamin B-12) 1,000 mcg PO DAILY [facility] Last Admin: 09/12/18 08:20 Dose: Not Given Epoetin Jose (Procrit) 10,[facility] Last Admin: 09/12/18 08:20 Dose: Not Given Folic Acid (Folvite) 1 mg PO DAILY [facility] Last Admin: 09/12/18 08:20 Dose: Not Given Cefazolin Sodium/Dextrose 2 gm (/ Device) 50 mls @ 100 mls/hr IVPB ONCALL-OR [facility] Nystatin (Mycostatin) 500,000 units SSW TID [facility] Last Admin: 09/12/18 15:44 Dose: 500,000 units Ondansetron HCl (Zofran) 4 mg IVP Q6H PRN PRN Reason: Nausea/Vomiting Last Admin: 09/09/18 17:08 Dose: 4 mg Sevelamer Carbonate (Renvela) 1,600 mg PO TID-[facility] Last Admin: 09/12/18 12:18 Dose: Not Given Sodium Chloride (Flush - Normal Saline) 10 ml IVF Q12HR PRN PRN Reason: Saline Flush Last Admin: 09/08/18 09:42 Dose: 10 ml Tramadol HCl (Ultram) 50 mg PO Q12H PRN PRN Reason: Pain 4-5 Zolpidem Tartrate (Ambien) 5 mg PO HSPRN PRN PRN Reason: Insomnia
[2018-09-12 17:05] LABS: EliA Vaculitis New Method **** NEW METHOD ****; Glomerular Basemt Membrane Ab Less than 1.9 EliAU/mL (<7 Negative)
--- NOTE | 2018-09-12 17:16 | ULT ---
ABDOMINAL ULTRASOUND COMPLETE: History: Low platelets. FINDINGS: The liver appears unremarkable. The gallbladder demonstrates no evidence of gallstones, wall thickeni ng, edema, or pericholecystic edema. There is evidence for small bilateral pleural effusions. Common bile duct 0.5 cm. Visualized pancreas, IVC, aorta, and spleen are unremarkable. The kidneys appear to be very small mckenzie aterally measuring approximately 6 cm in length. Coarse increased renal echogenicity, evidence for no nspecific chronic renal disease. No hydronephrosis. There is a small amount of ascites adjacent to th e spleen. IMPRESSION: No focal liver mass or ductal dilatation. No evidence of gallstones. Small bilateral pleural effusion s. Very small amount of free intraperitoneal fluid adjacent to the spleen. Very small kidneys bilater ally without hydronephrosis, evidence for nonspecific chronic renal disease. POS: [facility]
[2018-09-12] MEDS: cloNIDine 0.1 MG TAB PO PRN (20:47)
--- NOTE | 2018-09-12 21:32 | CON ---
DATE OF CONSULTATION: REASON FOR CONSULT: Anemia and thrombocytopenia. HISTORY OF PRESENT ILLNESS: Mr. Lazaro is a 23-year-old male with no medical history, presented to the hospital with weakness, nosebleeds, and fatigue. He was found to have a creatinine greater than 25 with BUN of 263. He was pancytopenic with a white count of 3.7, hemoglobin of 5.4, and a platelet count of 77,000. There was no clear cause of his kidney failure. He has been seen by Nephrology and had a dialysis catheter placed this morning. He has been treated for acidosis. He has been transfused 3 units of packed RBCs over the last several days. His white count has increased and is at a normal value of 5.8 with 83% neutrophils and 10% lymphocytes. His hemoglobin has increased to 6.6, platelet count is up to 73,000. We were asked to see the patient regarding his blood counts. PAST MEDICAL HISTORY: None. PAST SURGICAL HISTORY: None. ALLERGIES: NO KNOWN DRUG ALLERGIES. HOME MEDICATIONS: None. FAMILY HISTORY: No significant history. SOCIAL HISTORY: Single. No alcohol, tobacco, or illicit drug use. REVIEW OF SYSTEMS: Unable to obtain secondary to somnolence. PHYSICAL EXAMINATION: VITAL SIGNS: Temperature is 98.5, pulse is 90, respiratory rate 18, BP is 163/96. He is 100% on room air. GENERAL: Well-developed, well-nourished male, in no acute distress. HEENT: Normocephalic, atraumatic. NECK: Supple. CV: Regular rate and rhythm. LUNGS: Clear. ABDOMEN: Soft and nontender. Bowel sounds are positive. EXTREMITIES: No clubbing, cyanosis, or edema. SKIN: No rash. HEMATOLOGICAL: No petechiae or purpura. NEUROLOGICAL: Nonfocal. PERTINENT LABS AND X-RAYS: Current WBCs are 6.0, hemoglobin 6.1, hematocrit 17.7, platelet count 73,000, 80% neutrophils, 12% lymphocytes. PT is 16.6, INR is 1.3, PTT is 34.4. Sodium is 136, potassium 3.6, chloride 96, CO2 is 23, BUN is 113, creatinine 18.8, calcium is 7.2, phosphorus is 9.1. Iron is 182, TIBC is 176, saturation is 103, ferritin is 550, total bilirubin is 0.8, AST is 12, ALT is 20, alkaline phosphatase is 64, LDH is 361. Serum total protein is 6.8, albumin 4.1, globulin 2.7. B12 is 917, folate is 8.2, PTH is . ASSESSMENT: 1. Acute kidney failure. 2. Anemia. 3. Thrombocytopenia. 4. Elevated iron levels. DISCUSSION: The patient has been started on Procrit, which should continue with dialysis. We need to rule out occult GI bleed. We will check guaiac of stool x3. Check an abdominal ultrasound to rule out hepatosplenomegaly. We will monitor his iron levels and his CBC level. Case has been discussed with Dr. Foote. Thank you for the consult. Job ID: [id number]
[2018-09-13] MEDS: Calcitriol 0.25 MCG CAP PO SCH (08:18)
[2018-09-13] MEDS: Cyanocobalamin (Vitamin B-12) 1,000 MCG TAB PO SCH (08:18)
[2018-09-13] MEDS: Folic Acid 1 MG TAB PO SCH (08:18)
[2018-09-13] MEDS: Sevelamer Carbonate 800 MG TAB PO SCH ×3 (08:18→17:18)
[2018-09-13] MEDS: Nystatin 500,000 UNITS/5 ML UDCUP SSW SCH ×3 (08:18→19:58)
--- NOTE | 2018-09-13 08:50 | PRG ---
DATE OF SERVICE: 09/13/2018 SUBJECTIVE: Please see nurse practitioner note dated September 12, 2018, for full consult. In brief, the patient is a 23-year-old male, presenting to the hospital with acute kidney failure and is in end-stage renal disease, currently on dialysis. The patient has very small kidneys on ultrasound. Further workup for cause of acute and end-stage renal disease does not reveal a cause. The patient had pancytopenia on admission, and white count has returned to normal; however, he is severely anemic and thrombocytopenic. The patient is status post 3 units of packed red blood cells with an improvement of his hemoglobin from 5.4 to 6.9, though currently yesterday is 6.1. Platelet count is 73, which is increased from 55. Today, the patient feels okay other than some pain in his left arm after his dialysis catheter placement. Otherwise, he has no complaints. OBJECTIVE: VITAL SIGNS: Temperature 99, pulse 98, respirations 16, saturating 98% on room air, blood pressure 143/88. GENERAL APPEARANCE: The patient is lying in bed, in no acute distress. RESPIRATORY: Respirations are nonlabored. NEUROLOGIC: Nonfocal. PSYCHIATRIC: The patient is awake, alert, and oriented x3. LABORATORY DATA: White blood cells 6.0, hemoglobin 6.1, platelets 73. Sodium 136, potassium 3.6, BUN 113, creatinine 18.81. Phosphorus 9.1. Ferritin 550. LDH 361. Vitamin B12 of 917. PTH 1399. ASSESSMENT AND PLAN: A 23-year-old male with acute onset end-stage renal disease, anemia, and thrombocytopenia. The patient's anemia and thrombocytopenia are likely secondary to his end-stage renal disease. There are no signs of hemolysis, and his nutritional workup is negative. The patient has no hepatosplenomegaly on exam or ultrasound. Autoimmune antibodies have been negative. SPEP revealed no M spike. Hepatitis screen is also negative, as are CMV and BK virus. EBV DNA PCR is currently pending. Recommend continuing dialysis and continue Procrit injections to monitor for improvement in his red blood cells. Also, recommend checking an occult stool for potential blood loss. Job ID: [id number]
[2018-09-13 10:51] LABS: Hemoglobin 7.5 g/dL (14.0-18.0); Mean Corpuscular HGB CONC 34.2 g/dL (32.0-36.0); Mean Corpuscular Hemoglobin 29.7 pg (27.0-31.0); Mean Corpuscular Volume 86.9 fL (78.0-98.0); Mean Platelet Volume 9.3 fL (7.4-10.4); Platelet Count 94 thou/uL (130-400); RBC Distribution Width 12.7 % (11.5-14.5); Red Blood Cell (RBC) Count 2.51 mill/uL (4.70-6.10); White Blood Cell (WBC) Count 5.6 thou/uL (4.8-10.8)
[2018-09-13 11:07] LABS: Anion Gap 16 mmol/L (10-20); BUN (Urea Nitrogen) 68 mg/dL (8.9-20.6); Calc. Creatinine Clearance 10 mL/min (70-130); Calcium 7.2 mg/dL (7.8-10.44); Carbon Dioxide 25 mmol/L (22-29); Chloride 100 mmol/L (98-107); Estimated GFR-MDRD 5; Glucose 111 mg/dL (70-105); Potassium 3.8 mmol/L (3.5-5.1); Sodium 137 mmol/L (136-145)
[2018-09-13 11:21] LABS: Epstein Barr Virus PCR Negative (Negative)
[2018-09-13 12:11] LABS: Eosinophils 5 % (0-10); Lymphocytes 13 % (21-51); MDiff Complete? YES; Monocytes 3 % (0-10); Neutrophil 79 % (42-75); Ovalocytes SLIGHT = 2-5 cells (100X) (0-1/hpf); Platelet Morphology Comment Appears Decreased; Polychromasia SLIGHT = 2-3 cells (100X) (0-2/hpf)
--- NOTE | 2018-09-13 12:48 | PRG ---
DATE OF SERVICE: 09/13/2018 SUBJECTIVE: This is 23-year-old gentleman, being seen for end-stage renal disease. The patient denied nausea, vomiting, or chest pain. OBJECTIVE: CONSTITUTIONAL: The patient is awake and alert. VITAL SIGNS: Pulse 98, breathing 16, blood pressure 153/88. GENERAL APPEARANCE AND MENTAL STATUS: Fair. HEAD/NECK: Normocephalic. Atraumatic. EYES: EOMI. No deformity. EARS: Clear. No ulcers. NOSE: Intact. No lesions. MOUTH: Clear. No discharge. THROAT: Clear. No exudate. LUNGS: Clear. No crackles. CARDIAC: S1, S2. No rub. ABDOMEN: Benign. Bowel sounds positive. GENITALIA/RECTUM: Rodrigues absent. BACK/EXTREMITIES: Edema 0+. NEUROLOGICAL: Alert and motor intact. SKIN: LYMPHATICS: LABORATORY DATA: Lab showed hemoglobin 6.5. IMPRESSION AND PLAN: 1. Stage 6 chronic kidney disease, stable. 2. Hypertension, stable. 3. Anemia. We would recommend transfusion. 4. Medication based on GFR, appropriate. Job ID: [id number]
--- NOTE | 2018-09-13 16:25 | PRG ---
DATE OF SERVICE: 09/13/2018 SUBJECTIVE: Catalino Lazaro is doing well. His Mihai fistula left arm has good thrill and bruit. It is well distended in his forearm. It should work well for future dialysis. He should continue to exercise his arm. He should dialyze using this catheter, should follow up with me in 2 to 3 weeks. I will see him as necessary in this hospitalization. Please call if necessary. The patient will be discharged at anytime from a surgical standpoint. Job ID: [id number]
--- NOTE | 2018-09-13 21:58 | PDOC.PN ---
- Subjective Encounter Start Date: 09/13/18 Encounter Start Time: 12:00 Patient seen and examined for MARCO. No new complaints. No overnight events - Objective MAR Reviewed: Yes Vital Signs & Weight: Vital Signs (12 hours) Temp Pulse Resp BP Pulse Ox 09/13/18 20:00 99 09/13/18 19:45 97.7 F 97 16 148/94 H 99 09/13/18 16:00 98.4 F 98 16 155/98 H 99 Weight Admit Weight 178 lb 12.8 oz Weight 177 lb 14.4 oz I&O: 09/12/18 09/13/18 09/14/18 06:59 06:59 06:59 Intake Total 840 710 800 Balance 840 710 800 Result Diagrams: 09/13/18 10:20 09/13/18 10:20 Radiology Reviewed by me: No (Abd USG - No hepatospenomegaly) Phys Exam - Physical Examination Constitutional: NAD Respiratory: no wheezing, no rhonchi Cardiovascular: RRR, no rub Gastrointestinal: soft, non-tender, positive bowel sounds Musculoskeletal: no edema Neurological: moves all 4 limbs Dx/Plan - Plan DVT proph w/SCDs 1. MARCO/ESRD started on HD 2. Pancytopenia/Anemia due to renal disease s/p 2 units PRBC, FOBT -ve 3. Metabolic acidosis due to #1 4. Vit D def 5. Hyponatremia/Hypokalemia 6. Secondary hyperparathyroidism PLAN: Await outpt dialysis access Cont other meds as below Cont current meds as below DC Nystatin AM labs Review of Systems - Review of Systems Respiratory: negative: Cough, Dry, Shortness of Breath, Hemoptysis, SOB with Excertion, Pleuritic Pain, Sputum, Wheezing Cardiovascular: negative: chest pain, palpitations, orthopnea, paroxysmal nocturnal dyspnea, edema, light headedness, other - Medications/Allergies Allergies/Adverse Reactions: Allergies Allergy/AdvReac Type Severity Reaction Status Date / Time No Known Drug Allergies Allergy Verified 09/08/18 09:41 Medications: Current Medications Acetaminophen (Tylenol) 650 mg PO Q4H PRN PRN Reason: Headache/Fever/Mild Pain (1-3) Acetaminophen (Tylenol) 1,000 mg PO Q6H PRN PRN Reason: Moderate to Severe Pain (6-10) Calcitriol (Rocaltrol) 0.25 mcg PO DAILY [facility] Last Admin: 09/13/18 08:18 Dose: 0.25 mcg Cholecalciferol (Vitamin D3) 2,000 units PO BID [facility] Last Admin: 09/13/18 19:58 Dose: 2,000 units Clonidine (Catapres) 0.1 mg PO Q4H PRN PRN Reason: FOR SBP > 170mmHg Last Admin: 09/12/18 20:47 Dose: 0.1 mg Cyanocobalamin (Vitamin B-12) 1,000 mcg PO DAILY [facility] Last Admin: 09/13/18 08:18 Dose: 1,000 mcg Epoetin Jose (Procrit) 10,000 units IVP MWF [facility] Last Admin: 09/12/18 08:20 Dose: Not Given Folic Acid (Folvite) 1 mg PO DAILY [facility] Last Admin: 09/13/18 08:18 Dose: 1 mg Cefazolin Sodium/Dextrose 2 gm (/ Device) 50 mls @ 100 mls/hr IVPB ONCALL-OR [facility] Ondansetron HCl (Zofran) 4 mg IVP Q6H PRN PRN Reason: Nausea/Vomiting Last Admin: 09/09/18 17:08 Dose: 4 mg Sevelamer Carbonate (Renvela) 1,600 mg PO TID-[facility] Last Admin: 09/13/18 17:18 Dose: 1,600 mg Sodium Chloride (Flush - Normal Saline) 10 ml IVF Q12HR PRN PRN Reason: Saline Flush Last Admin: 09/08/18 09:42 Dose: 10 ml Tramadol HCl (Ultram) 50 mg PO Q12H PRN PRN Reason: Pain 4-5 Zolpidem Tartrate (Ambien) 5 mg PO HSPRN PRN PRN Reason: Insomnia
[2018-09-14] MEDS: Sevelamer Carbonate 800 MG TAB PO SCH ×4 (09:03→19:10)
[2018-09-14] MEDS: Cyanocobalamin (Vitamin B-12) 1,000 MCG TAB PO SCH (09:03)
[2018-09-14] MEDS: Folic Acid 1 MG TAB PO SCH (09:03)
[2018-09-14] MEDS: Calcitriol 0.25 MCG CAP PO SCH (09:03)
[2018-09-14] MEDS ORDERED: Epoetin (ESRD) 10,000 UNITS/ML VIAL IVP SCH (10:45)
[2018-09-14 11:02] LABS: Hemoglobin 6.6 g/dL (14.0-18.0); Platelet Count 105 thou/uL (130-400)
[2018-09-14] MEDS ORDERED: Heparin 10,000 UNITS/ 10 ML VIAL ONE (11:11)
[2018-09-14 11:12] LABS: Anion Gap 16 mmol/L (10-20); BUN (Urea Nitrogen) 85 mg/dL (8.9-20.6); Calc. Creatinine Clearance 9 mL/min (70-130); Carbon Dioxide 27 mmol/L (22-29); Chloride 99 mmol/L (98-107); Estimated GFR-MDRD 4; Glucose 118 mg/dL (70-105); Potassium 3.8 mmol/L (3.5-5.1); Sodium 138 mmol/L (136-145)
--- NOTE | 2018-09-14 12:20 | PRG ---
DATE OF SERVICE: 09/14/2018 SUBJECTIVE: This is a 23-year-old gentleman, being seen for end-stage kidney disease. The patient denied nausea, vomiting, or chest pain. OBJECTIVE: CONSTITUTIONAL: The patient is awake and alert. VITAL SIGNS: Pulse 75, breathing 16, blood pressure 136/80. GENERAL APPEARANCE AND MENTAL STATUS: Fair. HEAD/NECK: Normocephalic. Atraumatic. EYES: EOMI. No deformity. EARS: Clear. No ulcers. NOSE: Intact. No lesions. MOUTH: Clear. No discharge. THROAT: Clear. No exudate. LUNGS: Clear. No crackles. CARDIAC: S1, S2. No rub. ABDOMEN: Benign. Bowel sounds positive. GENITALIA/RECTUM: Rodrigues absent. BACK/EXTREMITIES: Edema 0+. NEUROLOGICAL: Alert and motor intact. SKIN: LYMPHATICS: LABORATORY DATA: Showed hemoglobin 6.6. IMPRESSION: 1. Stage 6 chronic kidney disease, continue hemodialysis. 2. Anemia, plan transfusion. 3. Hypertension, stable. 4. Medication based on GFR, appropriate. Continue Epogen. Job ID: [id number]
[2018-09-14] MEDS: Epoetin (NON-ESRD) 20,000 UNITS/ML ML IVP SCH (12:58)
[2018-09-14 16:11] LABS: Cytoplasmic (C-ANCA) <1:20 titer (Neg:<1:20); Myeloperoxidase AutoAbs <9.0 U/mL (0.0-9.0); Perinuclear (P-ANCA) <1:20 titer (Neg:<1:20); Proteinase-3 AutoAbs Less than 3.5 U/mL (0.0-3.5)
--- NOTE | 2018-09-14 21:45 | PDOC.PN ---
- Subjective Encounter Start Date: 09/14/18 Encounter Start Time: 10:15 Patient seen and examined for MARCO. Undergoing dialysis. No fever/chills. No new complaints. No overnight events - Objective MAR Reviewed: Yes Vital Signs & Weight: Vital Signs (12 hours) Temp Pulse Resp BP Pulse Ox 09/14/18 20:00 98.7 F 99 20 153/98 H 100 09/14/18 17:41 154/102 H 09/14/18 15:37 98.6 F 101 H 16 156/106 H 98 09/14/18 13:58 98.3 F 102 H 16 153/103 H 98 09/14/18 13:26 98.4 F 09/14/18 12:47 98.7 F 09/14/18 12:30 98.4 F 09/14/18 09:52 100 Weight Admit Weight 178 lb 12.8 oz Weight 177 lb 6.4 oz Most Recent Monitor Data Heart Rate from ECG 98 NIBP 160/103 Respiration from ECG 16 I&O: 09/13/18 09/14/18 09/15/18 06:59 06:59 06:59 Intake Total 617 687 0208 Output Total 1400 Balance 710 920 -90 Result Diagrams: 09/14/18 10:23 09/14/18 10:23 Phys Exam - Physical Examination Constitutional: NAD Respiratory: no wheezing, no rhonchi Cardiovascular: RRR, no rub Gastrointestinal: soft, positive bowel sounds Musculoskeletal: no edema Neurological: moves all 4 limbs Dx/Plan - Plan DVT proph w/SCDs 1. MARCO/ESRD started on HD 2. Pancytopenia/Anemia due to renal disease 3. Metabolic acidosis due to #1 4. Vit D def 5. Hyponatremia/Hypokalemia 6. Secondary hyperparathyroidism PLAN: 1 unit PRBC transfusion Await outpt dialysis access Cont other meds as below AM labs Review of Systems - Review of Systems Respiratory: negative: Cough, Dry, Shortness of Breath, Hemoptysis, SOB with Excertion, Pleuritic Pain, Sputum, Wheezing Cardiovascular: negative: chest pain, palpitations, orthopnea, paroxysmal nocturnal dyspnea, edema, light headedness, other Gastrointestinal: negative: Nausea, Vomiting, Abdominal Pain, Diarrhea, Constipation, Melena, Hematochezia, Other - Medications/Allergies Allergies/Adverse Reactions: Allergies Allergy/AdvReac Type Severity Reaction Status Date / Time No Known Drug Allergies Allergy Verified 09/08/18 09:41 Medications: Current Medications Acetaminophen (Tylenol) 650 mg PO Q4H PRN PRN Reason: Headache/Fever/Mild Pain (1-3) Acetaminophen (Tylenol) 1,000 mg PO Q6H PRN PRN Reason: Moderate to Severe Pain (6-10) Calcitriol (Rocaltrol) 0.25 mcg PO DAILY [facility] Last Admin: 09/14/18 09:03 Dose: 0.25 mcg Cholecalciferol (Vitamin D3) 2,000 units PO BID [facility] Last Admin: 09/14/18 20:35 Dose: 2,000 units Clonidine (Catapres) 0.1 mg PO Q4H PRN PRN Reason: FOR SBP > 170mmHg Last Admin: 09/12/18 20:47 Dose: 0.1 mg Cyanocobalamin (Vitamin B-12) 1,000 mcg PO DAILY [facility] Last Admin: 09/14/18 09:03 Dose: 1,000 mcg Epoetin Jose (Procrit) 10,000 units IVP [facility] Folic Acid (Folvite) 1 mg PO DAILY [facility] Last Admin: 09/14/18 09:03 Dose: 1 mg Cefazolin Sodium/Dextrose 2 gm (/ Device) 50 mls @ 100 mls/hr IVPB ONCALL-OR [facility] Ondansetron HCl (Zofran) 4 mg IVP Q6H PRN PRN Reason: Nausea/Vomiting Last Admin: 09/09/18 17:08 Dose: 4 mg Sevelamer Carbonate (Renvela) 1,600 mg PO TID-[facility] Last Admin: 09/14/18 19:10 Dose: 1,600 mg Sodium Chloride (Flush - Normal Saline) 10 ml IVF Q12HR PRN PRN Reason: Saline Flush Last Admin: 09/08/18 09:42 Dose: 10 ml Sodium Chloride (Flush - Normal Saline) 10 ml IVF PRN PRN PRN Reason: Saline Flush Tramadol HCl (Ultram) 50 mg PO Q12H PRN PRN Reason: Pain 4-5 Zolpidem Tartrate (Ambien) 5 mg PO HSPRN PRN PRN Reason: Insomnia
[2018-09-15 08:07] LABS: #Lymphocytes 0.8 thou/uL (1.20-3.40); #Monocytes 0.4 thou/uL (0.11-0.59); #Neutrophils 3.6 thou/uL (1.40-6.50); %Basophils 0.6 % (0.0-1.0); %Eosinophils 0.3 % (0.0-10.0); %Lymphocytes 16.8 % (21.0-51.0); %Monocytes 7.4 % (0.0-10.0); Hemoglobin 7.6 g/dL (14.0-18.0); Mean Corpuscular HGB CONC 33.6 g/dL (32.0-36.0); Mean Corpuscular Hemoglobin 29.5 pg (27.0-31.0); Mean Corpuscular Volume 87.6 fL (78.0-98.0); Mean Platelet Volume 8.7 fL (7.4-10.4); Platelet Count 105 thou/uL (130-400); RBC Distribution Width 13.3 % (11.5-14.5); Red Blood Cell (RBC) Count 2.59 mill/uL (4.70-6.10); White Blood Cell (WBC) Count 4.8 thou/uL (4.8-10.8)
[2018-09-15 08:30] LABS: Anion Gap 12 mmol/L (10-20); BUN (Urea Nitrogen) 48 mg/dL (8.9-20.6); Calc. Creatinine Clearance 13 mL/min (70-130); Calcium 7.4 mg/dL (7.8-10.44); Carbon Dioxide 29 mmol/L (22-29); Chloride 101 mmol/L (98-107); Estimated GFR-MDRD 7; Glucose 90 mg/dL (70-105); Potassium 4.3 mmol/L (3.5-5.1); Sodium 138 mmol/L (136-145)
[2018-09-15] MEDS: Calcitriol 0.25 MCG CAP PO SCH (08:56)
[2018-09-15] MEDS: Folic Acid 1 MG TAB PO SCH (08:56)
[2018-09-15] MEDS: Cyanocobalamin (Vitamin B-12) 1,000 MCG TAB PO SCH (08:56)
[2018-09-15] MEDS: Sevelamer Carbonate 800 MG TAB PO SCH ×3 (08:56→17:20)
--- NOTE | 2018-09-15 11:09 | PRG ---
DATE OF SERVICE: 09/15/2018 SUBJECTIVE: A 23-year-old gentleman being seen for end-stage renal disease. The patient denies any nausea, vomiting, or chest pain. OBJECTIVE: CONSTITUTIONAL: The patient is awake and alert. VITAL SIGNS: Pulse 95, breathing 16, and blood pressure 147/97. GENERAL APPEARANCE AND MENTAL STATUS: Fair. HEAD/NECK: Normocephalic. Atraumatic. EYES: EOMI. No deformity. EARS: Clear. No ulcers. NOSE: Intact. No lesions. MOUTH: Clear. No discharge. THROAT: Clear. No exudate. LUNGS: Clear. No crackles. CARDIAC: S1, S2. No rub. ABDOMEN: Benign. Bowel sounds positive. GENITALIA/RECTUM: Rodrigues absent. BACK/EXTREMITIES: Edema 0+. NEUROLOGICAL: Alert and motor intact. LABORATORY DATA: Labs show hemoglobin 7.6. IMPRESSION AND PLAN: 1. Stage 6 chronic kidney disease, continue hemodialysis. 2. Hypertension, stable. 3. Anemia, stable. 4. Medication based on GFR appropriate. Job ID: [id number]
[2018-09-15] MEDS ORDERED: Amlodipine 5 MG TAB PO SCH (11:45)
--- NOTE | 2018-09-15 22:28 | PDOC.PN ---
- Subjective Encounter Start Date: 09/15/18 Encounter Start Time: 09:00 - Objective MAR Reviewed: Yes Vital Signs & Weight: Vital Signs (12 hours) Temp Pulse Resp BP BP Pulse Ox 09/15/18 20:00 97.7 F 113 H 18 154/102 H 97 09/15/18 16:00 98.4 F 105 H 18 156/105 H 100 09/15/18 14:48 103 H 16 155/100 H 98 09/15/18 12:20 102 H 162/98 H 09/15/18 12:00 98.7 F 102 H 16 143/92 H 97 Weight Admit Weight 178 lb 12.8 oz Weight 177 lb 9.6 oz Most Recent Monitor Data Heart Rate from ECG 98 NIBP 160/103 Respiration from ECG 16 I&O: 09/14/18 09/15/18 09/16/18 06:59 06:59 06:59 Intake Total 920 2110 1430 Output Total 1400 Balance 062 111 5778 Result Diagrams: 09/15/18 07:54 09/15/18 07:54 Phys Exam - Physical Examination Constitutional: NAD Respiratory: no wheezing, no rhonchi Cardiovascular: RRR, no rub Gastrointestinal: soft, non-tender, positive bowel sounds Musculoskeletal: no edema Neurological: moves all 4 limbs Dx/Plan - Plan DVT proph w/SCDs 1. MARCO/ESRD started on HD 2. Pancytopenia/Anemia due to renal disease 3. HTN - uncontrolled. 4. Vit D def 5. Hyponatremia/Hypokalemia 6. Secondary hyperparathyroidism 7. Metabolic acidosis due to #1 PLAN: Add Amlodipine Await outpt dialysis access Cont other meds as below Review of Systems - Review of Systems Respiratory: negative: Cough, Dry, Shortness of Breath, Hemoptysis, SOB with Excertion, Pleuritic Pain, Sputum, Wheezing Cardiovascular: negative: chest pain, palpitations, orthopnea, paroxysmal nocturnal dyspnea, edema, light headedness, other - Medications/Allergies Allergies/Adverse Reactions: Allergies Allergy/AdvReac Type Severity Reaction Status Date / Time No Known Drug Allergies Allergy Verified 09/08/18 09:41 Medications: Current Medications Acetaminophen (Tylenol) 650 mg PO Q4H PRN PRN Reason: Headache/Fever/Mild Pain (1-3) Acetaminophen (Tylenol) 1,000 mg PO Q6H PRN PRN Reason: Moderate to Severe Pain (6-10) Amlodipine Besylate (Norvasc) 5 mg PO DAILY [facility]S AT [facility] Calcitriol (Rocaltrol) 0.25 mcg PO DAILY [facility] 234 BEDS AT [facility] Last Admin: 09/15/18 08:56 Dose: 0.25 mcg Carvedilol (Coreg) 6.25 mg PO BID-[facility] Cholecalciferol (Vitamin D3) 2,000 units PO BID [facility] 234 BEDS AT [facility] Last Admin: 09/15/18 20:12 Dose: 2,000 units Clonidine (Catapres) 0.1 mg PO Q4H PRN PRN Reason: FOR SBP > 170mmHg Last Admin: 09/12/18 20:47 Dose: 0.1 mg Cyanocobalamin (Vitamin B-12) 1,000 mcg PO DAILY [facility] 234 BEDS AT [facility] Last Admin: 09/15/18 08:56 Dose: 1,000 mcg Epoetin Jose (Procrit) 10,000 units IVP [facility] Folic Acid (Folvite) 1 mg PO DAILY [facility] 234 BEDS AT [facility] Last Admin: 09/15/18 08:56 Dose: 1 mg Cefazolin Sodium/Dextrose 2 gm (/ Device) 50 mls @ 100 mls/hr IVPB ONCALL-OR [facility]S INCLUDE 234 BEDS AT [facility] Ondansetron HCl (Zofran) 4 mg IVP Q6H PRN PRN Reason: Nausea/Vomiting Last Admin: 09/09/18 17:08 Dose: 4 mg Sevelamer Carbonate (Renvela) 1,600 mg PO TID-[facility] Last Admin: 09/15/18 17:20 Dose: 1,600 mg Sodium Chloride (Flush - Normal Saline) 10 ml IVF Q12HR PRN PRN Reason: Saline Flush Last Admin: 09/08/18 09:42 Dose: 10 ml Sodium Chloride (Flush - Normal Saline) 10 ml IVF PRN PRN PRN Reason: Saline Flush Tramadol HCl (Ultram) 50 mg PO Q12H PRN PRN Reason: Pain 4-5 Zolpidem Tartrate (Ambien) 5 mg PO HSPRN PRN PRN Reason: Insomnia
[2018-09-16] MEDS: Sevelamer Carbonate 800 MG TAB PO SCH ×3 (08:21→17:37)
[2018-09-16] MEDS: Folic Acid 1 MG TAB PO SCH (08:22)
[2018-09-16] MEDS: Cyanocobalamin (Vitamin B-12) 1,000 MCG TAB PO SCH (08:22)
[2018-09-16] MEDS: Carvedilol 6.25 MG TAB PO SCH ×2 (08:22→17:37)
[2018-09-16] MEDS: Calcitriol 0.25 MCG CAP PO SCH (08:22)
[2018-09-16] MEDS: Amlodipine 5 MG TAB PO SCH (08:22)
[2018-09-16] MEDS ORDERED: Heparin 10,000 UNITS/ 10 ML VIAL ONE (12:00)
--- NOTE | 2018-09-16 12:51 | PRG ---
DATE OF SERVICE: 09/16/2018 SUBJECTIVE: A 23-year-old gentleman being seen for end-stage renal disease. The patient denies any nausea, vomiting, or chest pain. OBJECTIVE: CONSTITUTIONAL: The patient is awake and alert. VITAL SIGNS: Afebrile, pulse 92, breathing 16, and blood pressure 148/97. GENERAL APPEARANCE AND MENTAL STATUS: Fair. HEAD/NECK: Normocephalic. Atraumatic. EYES: EOMI. No deformity. EARS: Clear. No ulcers. NOSE: Intact. No lesions. MOUTH: Clear. No discharge. THROAT: Clear. No exudate. LUNGS: Clear. No crackles. CARDIAC: S1, S2. No rub. ABDOMEN: Benign. Bowel sounds positive. GENITALIA/RECTUM: Rodrigues absent. BACK/EXTREMITIES: Edema 0+. NEUROLOGICAL: Alert and motor intact. SKIN: LYMPHATICS: LABORATORY DATA: Labs show hemoglobin 7.6. ASSESSMENT: 1. Stage 6 chronic kidney disease. Continue hemodialysis. 2. Hypertension, stable. 3. Anemia, stable. 4. Medication based on GFR appropriate. Job ID: [id number]
[2018-09-16] MEDS: Epoetin (ESRD) 10,000 UNITS/ML VIAL IVP SCH (15:57)
[2018-09-16 18:57] LABS: #Lymphocytes 0.6 thou/uL (1.20-3.40); #Monocytes 0.5 thou/uL (0.11-0.59); #Neutrophils 3.2 thou/uL (1.40-6.50); %Basophils 0.5 % (0.0-1.0); %Eosinophils 0.2 % (0.0-10.0); %Lymphocytes 14.3 % (21.0-51.0); %Monocytes 10.8 % (0.0-10.0); %Neutrophils 74.2 % (42.0-75.0); Hemoglobin 7.5 g/dL (14.0-18.0); Mean Corpuscular HGB CONC 33.1 g/dL (32.0-36.0); Mean Corpuscular Volume 90.7 fL (78.0-98.0); Mean Platelet Volume 9.1 fL (7.4-10.4); Platelet Count 127 thou/uL (130-400); RBC Distribution Width 13.6 % (11.5-14.5); White Blood Cell (WBC) Count 4.3 thou/uL (4.8-10.8)
[2018-09-16 18:58] LABS: Anion Gap 15 mmol/L (10-20); BUN (Urea Nitrogen) 71 mg/dL (8.9-20.6); Calc. Creatinine Clearance 11 mL/min (70-130); Calcium 7.9 mg/dL (7.8-10.44); Carbon Dioxide 29 mmol/L (22-29); Chloride 97 mmol/L (98-107); Estimated GFR-MDRD 5; Glucose 116 mg/dL (70-105); Potassium 3.9 mmol/L (3.5-5.1); Sodium 137 mmol/L (136-145)
--- NOTE | 2018-09-16 22:52 | PDOC.PN ---
- Subjective Encounter Start Date: 09/16/18 Encounter Start Time: 10:30 Patient seen and examined for MARCO. No new complaints. No overnight events - Objective MAR Reviewed: Yes Vital Signs & Weight: Vital Signs (12 hours) Temp Pulse Resp BP BP Pulse Ox 09/16/18 20:25 98.6 F 96 18 155/104 H 98 09/16/18 17:37 160/103 H 09/16/18 17:35 98.9 F 111 H 16 160/103 H 99 09/16/18 12:59 97.8 F 104 H 16 135/88 96 Weight Admit Weight 178 lb 12.8 oz Weight 179 lb 0.246 oz Most Recent Monitor Data Heart Rate from ECG 98 NIBP 160/103 Respiration from ECG 16 I&O: 09/15/18 09/16/18 09/17/18 06:59 06:59 06:59 Intake Total 2110 2080 2400 Output Total 1400 Balance 710 2080 2400 Result Diagrams: 09/16/18 13:15 09/16/18 13:15 Phys Exam - Physical Examination Constitutional: NAD Respiratory: no wheezing, no rhonchi Cardiovascular: RRR, no rub Gastrointestinal: soft, non-tender, positive bowel sounds Musculoskeletal: no edema Dx/Plan - Plan DVT proph w/SCDs 1. MARCO/ESRD started on HD 2. Pancytopenia/Anemia due to renal disease 3. HTN - uncontrolled. 4. Vit D def 5. Hyponatremia/Hypokalemia 6. Secondary hyperparathyroidism 7. Metabolic acidosis due to #1 PLAN: Await outpt dialysis access Cont current meds as below Review of Systems - Review of Systems Respiratory: negative: Cough, Dry, Shortness of Breath, Hemoptysis, SOB with Excertion, Pleuritic Pain, Sputum, Wheezing Cardiovascular: negative: chest pain, palpitations, orthopnea, paroxysmal nocturnal dyspnea, edema, light headedness, other - Medications/Allergies Allergies/Adverse Reactions: Allergies Allergy/AdvReac Type Severity Reaction Status Date / Time No Known Drug Allergies Allergy Verified 09/08/18 09:41 Medications: Current Medications Acetaminophen (Tylenol) 650 mg PO Q4H PRN PRN Reason: Headache/Fever/Mild Pain (1-3) Acetaminophen (Tylenol) 1,000 mg PO Q6H PRN PRN Reason: Moderate to Severe Pain (6-10) Amlodipine Besylate (Norvasc) 5 mg PO DAILY [facility] Last Admin: 09/16/18 08:22 Dose: 5 mg Calcitriol (Rocaltrol) 0.25 mcg PO DAILY [facility] Last Admin: 09/16/18 08:22 Dose: 0.25 mcg Carvedilol (Coreg) 6.25 mg PO BID-[facility] Last Admin: 09/16/18 17:37 Dose: 6.25 mg Cholecalciferol (Vitamin D3) 2,000 units PO BID [facility] Last Admin: 09/16/18 20:18 Dose: 2,000 units Clonidine (Catapres) 0.1 mg PO Q4H PRN PRN Reason: FOR SBP > 170mmHg Last Admin: 09/12/18 20:47 Dose: 0.1 mg Cyanocobalamin (Vitamin B-12) 1,000 mcg PO DAILY [facility] Last Admin: 09/16/18 08:22 Dose: 1,000 mcg Epoetin Jose (Procrit) 10,000 [facility] Last Admin: 09/16/18 15:57 Dose: 10,000 units Folic Acid (Folvite) 1 mg PO DAILY [facility] Last Admin: 09/16/18 08:22 Dose: 1 mg Cefazolin Sodium/Dextrose 2 gm (/ Device) 50 mls @ 100 mls/hr IVPB ONCALL-OR [facility] Ondansetron HCl (Zofran) 4 mg IVP Q6H PRN PRN Reason: Nausea/Vomiting Last Admin: 09/09/18 17:08 Dose: 4 mg Sevelamer Carbonate (Renvela) 1,600 mg PO TID-[facility] Last Admin: 09/16/18 17:37 Dose: 1,600 mg Sodium Chloride (Flush - Normal Saline) 10 ml IVF Q12HR PRN PRN Reason: Saline Flush Last Admin: 09/08/18 09:42 Dose: 10 ml Sodium Chloride (Flush - Normal Saline) 10 ml IVF PRN PRN PRN Reason: Saline Flush Tramadol HCl (Ultram) 50 mg PO Q12H PRN PRN Reason: Pain 4-5 Zolpidem Tartrate (Ambien) 5 mg PO HSPRN PRN PRN Reason: Insomnia
[2018-09-17] MEDS: Amlodipine 5 MG TAB PO SCH (09:20)
[2018-09-17] MEDS: Sevelamer Carbonate 800 MG TAB PO SCH ×3 (09:20→17:30)
[2018-09-17] MEDS: Carvedilol 6.25 MG TAB PO SCH ×2 (09:20→17:30)
[2018-09-17] MEDS: Calcitriol 0.25 MCG CAP PO SCH (09:20)
[2018-09-17] MEDS: Folic Acid 1 MG TAB PO SCH (09:21)
[2018-09-17] MEDS: Cyanocobalamin (Vitamin B-12) 1,000 MCG TAB PO SCH (09:21)
--- NOTE | 2018-09-17 12:23 | PRG ---
DATE OF SERVICE: 09/17/2018 SUBJECTIVE: This is a 23-year-old gentleman, being seen for end-stage kidney disease. The patient denied any nausea, vomiting, or chest pain. OBJECTIVE: CONSTITUTIONAL: The patient is awake and alert. VITAL SIGNS: Pulse 96, breathing 16, blood pressure 146/94. GENERAL APPEARANCE AND MENTAL STATUS: Fair. HEAD/NECK: Normocephalic. Atraumatic. EYES: EOMI. No deformity. EARS: Clear. No ulcers. NOSE: Intact. No lesions. MOUTH: Clear. No discharge. THROAT: Clear. No exudate. LUNGS: Clear. No crackles. CARDIAC: S1, S2. No rub. ABDOMEN: Benign. Bowel sounds positive. GENITALIA/RECTUM: Rodrigues absent. BACK/EXTREMITIES: Edema 0+. NEUROLOGICAL: Alert and motor intact. SKIN: LYMPHATICS: LABORATORY DATA: Reviewed. ASSESSMENT AND PLAN: 1. Stage 3 chronic kidney disease. Continue hemodialysis. 2. Hypertension, stable. 3. Anemia, stable. 4. Medications based on GFR appropriate. Job ID: [id number]
--- NOTE | 2018-09-17 22:24 | PDOC.PN ---
- Subjective Encounter Start Date: 09/17/18 Encounter Start Time: 11:30 Patient seen and examined for MARCO/ESRD. Feeling well. No new complaints. No overnight events - Objective MAR Reviewed: Yes Vital Signs & Weight: Vital Signs (12 hours) Temp Pulse Resp BP Pulse Ox 09/17/18 19:37 98.1 F 99 16 151/98 H 96 Weight Admit Weight 178 lb 12.8 oz Weight 176 lb 2.389 oz Most Recent Monitor Data Heart Rate from ECG 98 NIBP 160/103 Respiration from ECG 16 I&O: 09/16/18 09/17/18 09/18/18 06:59 06:59 06:59 Intake Total 2080 2850 1000 Balance 2080 2850 1000 Result Diagrams: 09/16/18 13:15 09/16/18 13:15 Dx/Plan - Plan DVT proph w/SCDs 1. MARCO/ESRD started on HD 2. Pancytopenia/Anemia due to renal disease 3. HTN - uncontrolled. 4. Vit D def 5. Hyponatremia/Hypokalemia 6. Secondary hyperparathyroidism 7. Metabolic acidosis due to #1 PLAN: Await outpt dialysis access Cont current meds as below Review of Systems - Review of Systems Cardiovascular: negative: chest pain, palpitations, orthopnea, paroxysmal nocturnal dyspnea, edema, light headedness, other Gastrointestinal: negative: Nausea, Vomiting, Abdominal Pain, Diarrhea, Constipation, Melena, Hematochezia, Other - Medications/Allergies Allergies/Adverse Reactions: Allergies Allergy/AdvReac Type Severity Reaction Status Date / Time No Known Drug Allergies Allergy Verified 09/08/18 09:41 Medications: Current Medications Acetaminophen (Tylenol) 650 mg PO Q4H PRN PRN Reason: Headache/Fever/Mild Pain (1-3) Acetaminophen (Tylenol) 1,000 mg PO Q6H PRN PRN Reason: Moderate to Severe Pain (6-10) Amlodipine Besylate (Norvasc) 5 mg PO DAILY [facility] Last Admin: 09/17/18 09:20 Dose: 5 mg Calcitriol (Rocaltrol) 0.25 mcg PO DAILY [facility] Last Admin: 09/17/18 09:20 Dose: 0.25 mcg Carvedilol (Coreg) 6.25 mg PO BID-[facility] Last Admin: 09/17/18 17:30 Dose: 6.25 mg Cholecalciferol (Vitamin D3) 2,000 units PO BID [facility] Last Admin: 09/17/18 19:39 Dose: 2,000 units Clonidine (Catapres) 0.1 mg PO Q4H PRN PRN Reason: FOR SBP > 170mmHg Last Admin: 09/12/18 20:47 Dose: 0.1 mg Cyanocobalamin (Vitamin B-12) 1,000 mcg PO DAILY [facility] Last Admin: 09/17/18 09:21 Dose: 1,000 mcg Epoetin Jose (Procrit) 10,000 units IVP MWF [facility] Last Admin: 09/16/18 15:57 Dose: 10,000 units Folic Acid (Folvite) 1 mg PO DAILY [facility] Last Admin: 09/17/18 09:21 Dose: 1 mg Cefazolin Sodium/Dextrose 2 gm (/ Device) 50 mls @ 100 mls/hr IVPB ONCALL-OR [facility] Ondansetron HCl (Zofran) 4 mg IVP Q6H PRN PRN Reason: Nausea/Vomiting Last Admin: 09/09/18 17:08 Dose: 4 mg Sevelamer Carbonate (Renvela) 1,600 mg PO TID-[facility] Last Admin: 09/17/18 17:30 Dose: 1,600 mg Sodium Chloride (Flush - Normal Saline) 10 ml IVF Q12HR PRN PRN Reason: Saline Flush Last Admin: 09/08/18 09:42 Dose: 10 ml Sodium Chloride (Flush - Normal Saline) 10 ml IVF PRN PRN PRN Reason: Saline Flush Tramadol HCl (Ultram) 50 mg PO Q12H PRN PRN Reason: Pain 4-5 Zolpidem Tartrate (Ambien) 5 mg PO HSPRN PRN PRN Reason: Insomnia
[2018-09-18] MEDS: Cyanocobalamin (Vitamin B-12) 1,000 MCG TAB PO SCH (09:47)
[2018-09-18] MEDS: Folic Acid 1 MG TAB PO SCH (09:47)
[2018-09-18] MEDS: Sevelamer Carbonate 800 MG TAB PO SCH ×3 (09:47→17:06)
[2018-09-18] MEDS: Amlodipine 5 MG TAB PO SCH ×2 (09:47→20:20)
[2018-09-18] MEDS: Calcitriol 0.25 MCG CAP PO SCH (09:47)
[2018-09-18] MEDS: Carvedilol 6.25 MG TAB PO SCH ×2 (09:47→17:06)
[2018-09-18 09:55] LABS: Hemoglobin 7.4 g/dL (14.0-18.0)
--- NOTE | 2018-09-18 11:18 | PRG ---
DATE OF SERVICE: 09/18/2018 SUBJECTIVE: This is a 23-year-old gentleman being seen for end-stage renal disease. The patient denies nausea, vomiting, or chest pain. OBJECTIVE: CONSTITUTIONAL: The patient is awake, alert, in no acute distress. VITAL SIGNS: Afebrile, pulse 95, breathing 16, blood pressure 152/94. GENERAL APPEARANCE AND MENTAL STATUS: Fair. HEAD/NECK: Normocephalic. Atraumatic. EYES: EOMI. No deformity. EARS: Clear. No ulcers. NOSE: Intact. No lesions. MOUTH: Clear. No discharge. THROAT: Clear. No exudate. LUNGS: Clear. No crackles. CARDIAC: S1, S2. No rub. ABDOMEN: Benign. Bowel sounds positive. GENITALIA/RECTUM: Rodrigues absent. BACK/EXTREMITIES: Edema 0+. NEUROLOGICAL: Alert and motor intact. SKIN: LYMPHATICS: LABORATORY DATA: Labs show hemoglobin 7.4. ASSESSMENT AND PLAN: 1. Stage 6 chronic kidney disease. Continue hemodialysis. 2. Hypertension, stable. 3. Anemia. Continue Epogen, medication based on GFR appropriate. Job ID: [id number]
--- NOTE | 2018-09-18 11:47 | PRG ---
DATE OF SERVICE: 09/18/2018 SUBJECTIVE: The patient is seen and examined at bedside. He does not have much complaints to offer. His appetite is good. He moves his bowels daily. OBJECTIVE: VITAL SIGNS: Blood pressure is 152/94, pulse is 105, temperature is 98.7, respiratory rate is 18, and O2 saturation is 98% on room air. HEENT: His head is atraumatic and normocephalic. Eyes are PERRLA. Sclerae are nonicteric. Conjunctivae palish. Oral mucosa is moist. NECK: Supple. LUNGS: Clear. HEART: S1 and S2 normal. The hemodialysis catheter is in the right upper chest. ABDOMEN: Soft, nontender. Bowel sounds are present. No organomegaly. EXTREMITIES: No clubbing, cyanosis, or edema. NEUROLOGIC: He follows my commands. He moves his all four extremities. There is no any sensory or motor deficit present. Cranial nerves are intact. LABORATORY DATA: Labs showed hemoglobin of 7.4, hematocrit 22.9. Microbiology, no new findings. IMPRESSION: 1. Acute on chronic injury, on hemodialysis. 2. Pancytopenia/anemia due to renal disease. 3. Hypertension, uncontrolled. We will go up on his amlodipine to 5 mg twice a day. 4. Vitamin D deficiency. 5. Hyponatremia/hypokalemia corrected. 6. Secondary hyperparathyroidism. 7. Metabolic acidosis, corrected. He is awaiting outpatient dialysis arrangement. Continue current medications and current regimen, and as I mentioned above, we are going to go up on his amlodipine to 5 mg twice a day. Job ID: [id number]
[2018-09-19] MEDS: Sevelamer Carbonate 800 MG TAB PO SCH ×3 (08:00→17:04)
[2018-09-19] MEDS: Epoetin (ESRD) 10,000 UNITS/ML VIAL IVP SCH (12:07)
[2018-09-19] MEDS: Folic Acid 1 MG TAB PO SCH (12:07)
[2018-09-19] MEDS: Cyanocobalamin (Vitamin B-12) 1,000 MCG TAB PO SCH (12:07)
[2018-09-19] MEDS: Amlodipine 5 MG TAB PO SCH ×2 (12:07→20:48)
[2018-09-19] MEDS: Calcitriol 0.25 MCG CAP PO SCH (12:07)
[2018-09-19] MEDS: Carvedilol 6.25 MG TAB PO SCH ×2 (12:07→17:04)
--- NOTE | 2018-09-19 13:26 | PRG ---
DATE OF SERVICE: 09/19/2018 SUBJECTIVE: The patient is seen and examined at the bedside. He just finished his dialysis. He does not have much complaints to offer. OBJECTIVE: VITAL SIGNS: Blood pressure is 149/96, pulse is 95, temperature is 97.3, respiratory rate is 16, and O2 saturation is 100% on room air. HEENT: His head is atraumatic and normocephalic. Eyes are PERRLA. Sclerae are nonicteric. Conjunctivae are palish. Oral mucosa is moist. NECK: Supple. LUNGS: Breath sounds are diminished at both bases. HEART: S1 and S2 normal. No S3. No S4. ABDOMEN: Soft and nontender. EXTREMITIES: No clubbing, cyanosis, or edema. NEUROLOGICAL: He follows my commands. He moves his all 4 extremities. There are no any motor deficits. He has dialysis catheter in the right upper chest. LABORATORY DATA: None today. His hemoglobin yesterday was 7.4. ASSESSMENT: 1. Acute on chronic kidney injury, on hemodialysis. 2. Pancytopenia/anemia due to renal disease. 3. Hypertension, improved with increased dose of amlodipine to 5 mg twice a day. 4. Vitamin D deficiency. 5. Hyponatremia/hypokalemia corrected. 6. Secondary hyperparathyroidism. 7. Metabolic acidosis, corrected with hemodialysis. PLAN: We are waiting for the outpatient arrangement for his hemodialysis and I am going to obtain a Hematology consultation with Dr. Frey. Job ID: [id number]
--- NOTE | 2018-09-19 17:33 | PRG ---
DATE OF SERVICE: 09/19/2018 SUBJECTIVE: Patient was seen and examined at bedside and overnight events noted. Patient denies any shortness of breath or chest pain or palpitation. No history of nausea or vomiting or diarrhea or fever or chills or cramps. OBJECTIVE: GENERAL: This is a well-built male, in no apparent distress. VITAL SIGNS: Temperature 98.6. Heart rate . Respiratory rate 16. Blood pressure 141/88. HEENT: Atraumatic, normocephalic. Oral mucosa is moist NECK: Supple. CARDIOVASCULAR: S1, S2 heard. Rate and rhythm regular. RESPIRATORY: Clear to auscultation. GASTROINTESTINAL: Abdomen is soft. MUSCULOSKELETAL: No tenderness. No edema. DERMATOLOGIC: No skin rash. NEUROLOGIC: Alert and awake and oriented X3. No focal neurologic deficits. Moving all the extremities. PSYCHIATRIC: Mood and affect normal. LABORATORY DATA: Potassium 3.8, BUN is 71, creatinine is 12.5. ASSESSMENT AND PLAN: 1. End-stage renal disease, continue hemodialysis. 2. Hypertension. 3. Anemia. 4. Pancytopenia. 5. We will continue to monitor. Job ID: [id number]
[2018-09-20 07:12] LABS: Anion Gap 12 mmol/L (10-20); BUN (Urea Nitrogen) 45 mg/dL (8.9-20.6); Calc. Creatinine Clearance 17 mL/min (70-130); Calcium 8.2 mg/dL (7.8-10.44); Carbon Dioxide 29 mmol/L (22-29); Chloride 100 mmol/L (98-107); Estimated GFR-MDRD 9; Glucose 86 mg/dL (70-105); Sodium 137 mmol/L (136-145)
[2018-09-20 07:39] LABS: #Lymphocytes 0.7 thou/uL (1.20-3.40); #Monocytes 0.7 thou/uL (0.11-0.59); #Neutrophils 4.3 thou/uL (1.40-6.50); %Basophils 0.7 % (0.0-1.0); %Lymphocytes 12.1 % (21.0-51.0); %Monocytes 11.2 % (0.0-10.0); %Neutrophils 75.4 % (42.0-75.0); Anisocytosis SLIGHT = 6-15 cells (100X) (0-5/hpf); Hemoglobin 7.6 g/dL (14.0-18.0); MDiff Complete? YES; Mean Corpuscular HGB CONC 33.5 g/dL (32.0-36.0); Mean Corpuscular Hemoglobin 30.2 pg (27.0-31.0); Mean Corpuscular Volume 90.2 fL (78.0-98.0); Mean Platelet Volume 9.5 fL (7.4-10.4); Ovalocytes SLIGHT = 2-5 cells (100X) (0-1/hpf); Platelet Count 83 thou/uL (130-400); Platelet Morphology Comment Appears Decreased; Polychromasia SLIGHT = 2-3 cells (100X) (0-2/hpf); RBC Distribution Width 14.7 % (11.5-14.5); Red Blood Cell (RBC) Count 2.51 mill/uL (4.70-6.10); White Blood Cell (WBC) Count 5.7 thou/uL (4.8-10.8)
[2018-09-20] MEDS: Carvedilol 6.25 MG TAB PO SCH (07:55)
[2018-09-20] MEDS: Sevelamer Carbonate 800 MG TAB PO SCH (07:55)
[2018-09-20] MEDS: Cyanocobalamin (Vitamin B-12) 1,000 MCG TAB PO SCH (07:55)
[2018-09-20] MEDS: Folic Acid 1 MG TAB PO SCH (07:55)
[2018-09-20] MEDS: Calcitriol 0.25 MCG CAP PO SCH (07:55)
[2018-09-20] MEDS: Amlodipine 5 MG TAB PO SCH (07:55)
[2018-09-20 07:57] VITALS: BP 144/93; TEMP 98.4
[2018-09-20] MEDS ORDERED: Heparin 10,000 UNITS/ 10 ML VIAL ONE (12:53)
--- NOTE | 2018-09-20 15:30 | DIS ---
DATE OF ADMISSION: 09/07/2018 DATE OF DISCHARGE: 09/20/2018 DISCHARGE DISPOSITION: Home. FOLLOWUP: 1. Follow up with primary care physician at [facility] in 1 week. 2. Follow up with Dr. Antolin Mims in 2 to 3 weeks. 3. Follow up with Dr. Martha Schofield, Nephrology in 1 week. Basic metabolic profile every week is recommended. Primary care physician advised to follow. Patient was seen and examined on the day of discharge. Denies any new complaints. No chest pain, shortness of breath, or palpitations. DISCHARGE MEDICATIONS: 1. Amlodipine 5 mg b.i.d. 2. Calcitriol 0.25 mcg daily. 3. Carvedilol 6.25 mg b.i.d. 4. Vitamin D3 of 2000 units b.i.d. INPATIENT CONSULTANTS: 1. Nephrology, Dr. Schofield. 2. General Surgery, Dr. Mims. 3. Hematology, Dr. Foote. INPATIENT PROCEDURES: 1. On September 08, 2018, patient underwent right femoral vein Trialysis catheter. 2. On September 12, 2018, patient underwent right IJ cuffed tunneled hemodialysis catheter and left Mihai fistula. BRIEF HOSPITAL COURSE: The patient is a 23-year-old male with no significant past medical history. He presented to the hospital with abnormal labs. He was found to have found to have BUN of 263 and creatinine too high to count along with bicarbonate of 8 and hemoglobin of 5.4, platelet of 77. Please refer to the history and physical for further details. The patient was admitted to the hospital with a diagnosis of acute kidney injury. The patient was initiated on hemodialysis. He also required a total of 4 units of PRBC transfusion. His hemoglobin has stabilized to 7.4 to 7.6. The patient was seen by multiple consultants as discussed above. He had an extensive workup for acute kidney injury, which was essentially negative. Stool for occult blood was also negative. FINAL DIAGNOSES: 1. Acute kidney injury/end-stage renal disease, started on hemodialysis. 2. Pancytopenia. 3. Anemia secondary to renal disease. 4. Hypertension. 5. Vitamin D deficiency. 6. Hyponatremia. 7. Hypokalemia. 8. Secondary hyperparathyroidism. 9. Anion gap metabolic acidosis. DIAGNOSTIC TESTS: 1. Hemoglobin on admission 5.4, at discharge 7.6. 2. Platelet count on admission 77, at discharge is 83. 3. Creatinine at discharge is 7.86, on admission was greater than 25. 4. Vitamin B12 of 917, folic acid 8.2, PTH was 1400, LDH 361. 5. Random urine creatinine 57.7, random urine total protein 527. 6. Immunoglobulin G was 868, IgA 88, IgM 36. DWIGHT screen was negative. 7. Hepatitis screen was negative. CMV and Ashley-Germain virus were negative. BK virus was negative. 8. Renal ultrasound showed increased echotexture of small bilateral kidneys suggesting chronic medical renal disease. Right kidney measured 6 cm in length and left kidney measured 8 cm in length. 9. Abdominal ultrasound showed small bilateral pleural effusion. Liver was unremarkable. Spleen was unremarkable as well. Plan of care was discussed with the patient in detail. He stated understanding. Total time coordinating the discharge of this patient was 38 minutes. The patient was extensively counseled on renal diet. Job ID: [id number]
--- NOTE | 2018-09-20 18:00 | PRG ---
DATE OF SERVICE: 09/20/2018 SUBJECTIVE: Patient was seen and examined at bedside and overnight events noted. Patient denies any shortness of breath or chest pain or palpitation. No history of nausea or vomiting or diarrhea or fever or chills or cramps. OBJECTIVE: GENERAL: This is a well-built male, in no apparent distress. VITAL SIGNS: Temperature . Pulse 75. Respiratory rate . Blood pressure 144/93. HEENT: Atraumatic, normocephalic. Oral mucosa is moist NECK: Supple. CARDIOVASCULAR: S1, S2 heard. Rate and rhythm regular. RESPIRATORY: Clear to auscultation. GASTROINTESTINAL: Abdomen is soft. MUSCULOSKELETAL: No tenderness. No edema. DERMATOLOGIC: No skin rash. NEUROLOGIC: Alert and awake and oriented X3. No focal neurologic deficits. Moving all the extremities. PSYCHIATRIC: Mood and affect normal. LABORATORY DATA: Potassium is 4.0, BUN is 45, creatinine is 7.8. ASSESSMENT AND PLAN: 1. End-stage renal disease, started on hemodialysis. Unfortunately, the patient is undocumented and cannot have a regular outpatient dialysis. The patient was advised to follow up with the PCP's office to have lab work done every week and if abnormal, come to the ER, get the dialysis or show up to the ER if he develops symptoms of shortness of breath or chest pain or worsening edema or dizziness or any other acute symptoms. 2. Hypertension, stable. 3. Anemia. 4. Pancytopenia secondary to renal failure. 5. Prognosis guarded. The patient was advised to have close followup with the ER and also close followup with primary care physician. Job ID: [id number]
[2018-09-22 14:14] LABS: IgA - Total IgA (Sendout) 84 mg/dL (90-386); Immunoglobulin - G (Sendout) 736 mg/dL (700-1600); Immunoglobulin - M (Sendout) 36 mg/dL (20-172)
== END 2018-09-20 11:15 | disposition home or self-care (01) | DRG 674 ==
LOC: ERS 17:36 → ERHOLD 20:10 → 2NO 09-08 01:28 → T4-A 09-10 14:00
PROVIDERS: ADMIT Internal Medicine; ATTEND Internal Medicine
PROC: 06HM33Z Insertion of Infusion Device into Right Femoral Vein, Percutaneous Approach (ICD-10-PCS; principal; 2018-09-08)
PROC: 5A1D70Z Performance of Urinary Filtration, Intermittent, Less than 6 Hours Per Day (ICD-10-PCS; 2018-09-08)
PROC: 5A1D70Z Performance of Urinary Filtration, Intermittent, Less than 6 Hours Per Day (ICD-10-PCS; 2018-09-09)
PROC: 031C0ZF Bypass Left Radial Artery to Lower Arm Vein, Open Approach (ICD-10-PCS; 2018-09-12)
PROC: 0JH63XZ Insertion of Tunneled Vascular Access Device into Chest Subcutaneous Tissue and Fascia, Percutaneous Approach (ICD-10-PCS; 2018-09-12)
PROC: 02HV33Z Insertion of Infusion Device into Superior Vena Cava, Percutaneous Approach (ICD-10-PCS; 2018-09-12)
PROC: 5A1D70Z Performance of Urinary Filtration, Intermittent, Less than 6 Hours Per Day (ICD-10-PCS; 2018-09-12)
PROC: 5A1D70Z Performance of Urinary Filtration, Intermittent, Less than 6 Hours Per Day (ICD-10-PCS; 2018-09-14)
PROC: 5A1D70Z Performance of Urinary Filtration, Intermittent, Less than 6 Hours Per Day (ICD-10-PCS; 2018-09-16)
PROC: 5A1D70Z Performance of Urinary Filtration, Intermittent, Less than 6 Hours Per Day (ICD-10-PCS; 2018-09-19)
DX: N17.9 Acute kidney failure, unspecified (principal); I12.0 Hypertensive chronic kidney disease with stage 5 chronic kidney disease or end stage renal disease; D61.818 Other pancytopenia; E87.1 Hypo-osmolality and hyponatremia; E87.2 Acidosis; N18.6 End stage renal disease; D63.1 Anemia in chronic kidney disease; E55.9 Vitamin D deficiency, unspecified; E87.6 Hypokalemia; N25.81 Secondary hyperparathyroidism of renal origin; D69.6 Thrombocytopenia, unspecified; E87.8 Other disorders of electrolyte and fluid balance, not elsewhere classified
CPT/HCPCS: 36415; 36430; 71045; 76700; 76770; 80048; 80053; 81001; 82274; 82306; 82570; 82607; 82728; 82746; 83010; 83516; 83520; 83540; 83550; 83615; 83883; 83970; 84100; 84156; 85007; 85014; 85018; 85025; 85027; 85046; 85049; 85060; 85610; 85730; 86038; 86225; 86256; 86308; 86334; 86335; 86580; 86645; 86704; 86706; 86803; 86850; 86880; 86900; 86901; 87040; 87340; 87798; 87799; 90935; 93970; 96360; 96361; C1752; C1769; G0257; G0365; J0885; J1642; J1644; J2001; J2405; J2704; J2720; J3010; J3490; J7070; P9016; Q4081

== ENCOUNTER 2018-09-25 13:45 | Emergency (ER) | payer SELFPAY ==
[2018-09-25 15:17] LABS: Hemoglobin 8.7 g/dL (14.0-18.0); Mean Corpuscular HGB CONC 34.1 g/dL (32.0-36.0); Mean Corpuscular Hemoglobin 30.7 pg (27.0-31.0); Mean Platelet Volume 9.7 fL (7.4-10.4); Platelet Count 124 thou/uL (130-400); RBC Distribution Width 15.5 % (11.5-14.5); Red Blood Cell (RBC) Count 2.83 mill/uL (4.70-6.10); White Blood Cell (WBC) Count 3.5 thou/uL (4.8-10.8)
--- NOTE | 2018-09-25 15:21 | RAD ---
FRadiograph chest one view: HISTORY: 23-year-old male with dyspnea FINDINGS: The visualized lung shields are clear. The cardiomediastinal silhouette is normal. No pneumothorax. IMPRESSION: 1. No acute cardiopulmonary findings. 2. Right-sided double-lumen internal jugular hemodialysis catheter.
[2018-09-25 15:29] LABS: ALT (SGPT) 13 U/L (8-55); AST (SGOT) 18 U/L (5-34); Albumin 3.7 g/dL (3.5-5.0); Alkaline Phosphatase 85 U/L (40-150); Anion Gap 24 mmol/L (10-20); Bilirubin, Total 0.8 mg/dL (0.2-1.2); Calc. Creatinine Clearance 0 mL/min (70-130); Carbon Dioxide 19 mmol/L (22-29); Chloride 98 mmol/L (98-107); Estimated GFR-MDRD 3; Globulin 2.5 g/dL (2.4-3.5); Glucose 96 mg/dL (70-105); Potassium 5.2 mmol/L (3.5-5.1); Protein, Total 6.2 g/dL (6.0-8.3); Sodium 136 mmol/L (136-145)
[2018-09-25 15:42] LABS: Anisocytosis SLIGHT = 6-15 cells (100X) (0-5/hpf); BUN (Urea Nitrogen) 139 mg/dL (8.9-20.6); Eosinophils 8 % (0-10); Lymphocytes 19 % (21-51); MDiff Complete? YES; Monocytes 17 % (0-10); Neutrophil 56 % (42-75); Ovalocytes SLIGHT = 2-5 cells (100X) (0-1/hpf); Platelet Morphology Comment Appears Decreased; Polychromasia SLIGHT = 2-3 cells (100X) (0-2/hpf)
--- NOTE | 2018-09-26 10:07 | CON ---
DATE OF CONSULTATION: 09/25/2018 NEPHROLOGY CONSULT NOTE: CONSULTING PHYSICIAN: Dr. Escalante from ER. REASON FOR CONSULT: End-stage renal disease evaluation. REASON FOR ADMISSION: "Not feeling well." HISTORY OF PRESENT ILLNESS: A 23-year-old male was recently discharged from the hospital after . Patient had known ESRD with ischemic kidneys and was started on dialysis, but unfortunately he is due to lack of insurance. The patient was feeling weak and was found to be anemic with slightly elevated potassium, so the patient is getting dialysis from the ER and plan is to discharge him after that. The patient and his family are trying with his primary care and they are going to arrange insurance. No fever, no chills, no nausea or vomiting. PAST MEDICAL HISTORY: Positive for end-stage renal disease on hemodialysis with inability to do outpatient dialysis. PAST SURGICAL HISTORY: Dialysis access placement. HOME MEDICATIONS: Include: 1. Vitamin D3. 2. Coreg. 3. Calcitriol. 4. Amlodipine. ALLERGIES: NO KNOWN DRUG ALLERGIES. SOCIAL HISTORY: No smoking alcohol or drugs. FAMILY HISTORY: No significant history of kidney disease. REVIEW OF SYSTEMS: CONSTITUTIONAL: Negative for weight loss or gain, ability to conduct usual activities. SKIN: Negative for rash, itching. EYES: Negative for double vision, pain. ENT/MOUTH: Negative for nose bleeding, neck stiffness, pain, tenderness. CARDIOVASCULAR: Negative for palpitations, dyspnea on exertion, orthopnea. RESPIRATORY: Negative for shortness of breath, wheezing, cough, hemoptysis, fever or night sweats. GASTROINTESTINAL: Negative for poor appetite, abdominal pain, heartburn, nausea, vomiting, constipation, or diarrhea. GENITOURINARY: Negative for urgency, frequency, dysuria, nocturia. MUSCULOSKELETAL: Negative for pain, swelling. NEUROLOGIC/PSYCHIATRIC: Negative for anxiety, depression. ALLERGY/IMMUNOLOGIC: Negative for skin rash, bleeding tendency. PHYSICAL EXAMINATION: GENERAL: This is a well-built male, in no apparent distress. VITAL SIGNS: Temperature 98.3, pulse 70, blood pressure 137/74. CONSTITUTIONAL: Negative for weight loss or gain, ability to conduct usual activities. HEENT: Atraumatic and normocephalic. Oral mucosa is moist. NECK: Supple. CV: S1 and S2 heard. Rate and rhythm regular. RESPIRATORY: Clear. GI: Abdomen is soft. MUSCULOSKELETAL: 1+ edema. DERMATOLOGIC: No skin rash. NEUROLOGIC: Alert and awake. PSYCHIATRIC: Normal mood and affect. LABORATORY DATA: Hemoglobin is 8.7. Potassium is 5.2, BUN is 139, creatinine is 19.1. ASSESSMENT AND PLAN: 1. End-stage renal disease. The patient will have hemodialysis. The patient and family were counseled for the need for maintenance hemodialysis, either to move to [place] or dialysis, so he can regular maintenance hemodialysis. I explained the risk of hyperkalemia and severe acidosis and anemia, including sudden due to the lack of maintenance hemodialysis and they voiced understanding. They are trying there best to the arrange the insurance for him. 2. Hyperkalemia. We will have dialysis .. 3. Metabolic acidosis, elevated BNP. 4. Hypertension. 5. Prognosis is guarded. 6. Family is made aware of the need for regular dialysis and the options available at this point. 7. The patient was also advised to follow with the social security office. Thank you for the consult. We will follow. Job ID: [id number]
== END 2018-09-25 22:10 | disposition home or self-care (01) ==
LOC: ERS 13:45
DX: N18.6 End stage renal disease (principal); Z79.899 Other long term (current) drug therapy; Z79.891 Long term (current) use of opiate analgesic
CPT/HCPCS: 36415; 71045; 80053; 83880; 85025; 86850; 86900; 86901; 99285

== ENCOUNTER 2018-10-07 16:23 | Observation (INO) | payer SELFPAY ==
[~2018-10-07 16:23] MED LIST: ISOVUE-370 76%-LOCM 1 ML ONE
[2018-10-07 16:45] LABS: Hemoglobin 9.6 g/dL (14.0-18.0); Mean Corpuscular HGB CONC 33.3 g/dL (32.0-36.0); Mean Corpuscular Hemoglobin 30.1 pg (27.0-31.0); Mean Corpuscular Volume 90.2 fL (78.0-98.0); Mean Platelet Volume 8.9 fL (7.4-10.4); Platelet Count 136 thou/uL (130-400); RBC Distribution Width 14.5 % (11.5-14.5); Red Blood Cell (RBC) Count 3.18 mill/uL (4.70-6.10); White Blood Cell (WBC) Count 6.3 thou/uL (4.8-10.8)
--- NOTE | 2018-10-07 16:58 | RAD ---
AP view chest. HISTORY: History of seizure after renal dialysis AP view chest obtained on 10/07/2018 and comparison made to previous exam from 09/25/2018. A right jugular dialysis catheter is in place. The lungs are well aerated. No evidence of active intrathoracic disease seen. No evidence of effusion s, pneumonia or pneumothorax seen. IMPRESSION: Unremarkable AP view chest.
[2018-10-07 17:04] LABS: Band 6 % (5-11); Elliptocytes SLIGHT = 2-5 cells (100X) (0-1/hpf); Lymphocytes 28 % (21-51); MDiff Complete? YES; Monocytes 4 % (0-10); Myelocyte 1 % (0-0); Neutrophil 58 % (42-75); Ovalocytes SLIGHT = 2-5 cells (100X) (0-1/hpf); Platelet Morphology Comment Appears Adequate; Polychromasia SLIGHT = 2-3 cells (100X) (0-2/hpf); Reactive Lymphocytes 3 % (0-10)
[2018-10-07 17:10] LABS: ALT (SGPT) 20 U/L (8-55); AST (SGOT) 20 U/L (5-34); Albumin 3.3 g/dL (3.5-5.0); Alkaline Phosphatase 68 U/L (40-150); Anion Gap 20 mmol/L (10-20); BUN (Urea Nitrogen) 53 mg/dL (8.9-20.6); Bilirubin, Total 0.7 mg/dL (0.2-1.2); Calc. Creatinine Clearance 0 mL/min (70-130); Calcium 7.4 mg/dL (7.8-10.44); Carbon Dioxide 23 mmol/L (22-29); Chloride 100 mmol/L (98-107); Estimated GFR-MDRD 5; Globulin 2.1 g/dL (2.4-3.5); Glucose 140 mg/dL (70-105); Potassium 3.7 mmol/L (3.5-5.1); Protein, Total 5.4 g/dL (6.0-8.3); Sodium 139 mmol/L (136-145)
--- NOTE | 2018-10-07 18:27 | CT ---
CONTRAST ENHANCED CTA CHEST 10/07/18 HISTORY: Patient on dialysis. Elevated D-dimer. Contrast enhanced CTA chest obtained. 2D and 3D reconstructed images performed on an independent 3D workstation. CTA images demonstrate atrophy of both kidneys. The liver and spleen are unremarkable. The gallbladder and pancreas unremarkable. The lung parenchyma demonstrates an approximately 6 mm a jun of lung parenchymal soft tissue nodular density in the right lower lobe, axial image #61. There i s also approximately 4 mm subpleural based nodular density in the left lower lobe. No other lung par enchymal masses or lesions seen. No evidence of definite filling defect seen in the pulmonary arteries to suggest pulmonary emboli. No definite evidence of pneumonia seen. IMPRESSION: No evidence of pulmonary emboli. POS: RAQUEL
[2018-10-08] MEDS ORDERED: Acetaminophen 325 MG TAB PO PRN (01:10)
[2018-10-08] MEDS ORDERED: Ondansetron ODT 4 MG TAB PO PRN (01:10)
[2018-10-08] MEDS ORDERED: Ondansetron PF 4 MG/2 ML Vial IVP PRN (01:10)
--- NOTE | 2018-10-08 03:10 | HP ---
PRIMARY CARE PHYSICIAN: At [facility]. CHIEF COMPLAINT: Syncopal episode and hypotension during dialysis. HISTORY OF PRESENT ILLNESS: Mr. Nyla Lazaro is a 23-year-old male with past medical history of hypertension and end-stage renal disease, currently on dialysis, who was transported to [facility] after going unresponsive during dialysis earlier today. He was 3 minutes into his dialysis run today where he was noted also to have a syncopal episode, he was found to be hypotensive, therefore EMS was called to transport to [facility] for further management and workup. The patient's blood pressure was found systolically in the 40s. He was given 1 L normal saline per EMS and had regained consciousness. Upon arriving to the emergency department, the patient did state that he was slightly short of breath, his initial workup showed a D-dimer elevated at 1.31, CTA chest was performed and showed no evidence of a pulmonary embolism at this time. A portable chest x-ray was also performed and found to be unremarkable. Throughout his stay in the ED, the patient's symptoms resolved, he then later returned to baseline. He had denied any fever or chills. He denied any headache, blurred vision, or dizziness other than what he experienced during dialysis run. He had denied any chest pain, palpitations, or any further shortness of breath. He had denied any abdominal pain, nausea, or vomiting. His vital signs improved and had remained stable throughout the course in the ER. Dr. Schofield was then consulted for further evaluation. He had determined that the patient should be monitored overnight and have dialysis run in the morning, and if he is stable, thereafter can be discharged home with close outpatient followup with himself and his PCP at [facility]. REVIEW OF SYSTEMS: All other systems reviewed and found to be negative unless mentioned in the HPI. PAST MEDICAL HISTORY: Hypertension and end-stage renal disease, on dialysis. PAST SURGICAL HISTORY: Dialysis catheter and fistula placement. PSYCHIATRIC HISTORY: None. SOCIAL HISTORY: The patient denies any alcohol, tobacco, or illicit drug use. KNOWN ALLERGIES: None. CURRENT HOME MEDICATIONS: 1. Amlodipine 5 mg oral daily. 2. Vitamin D3 2000 units per day. 3. Carvedilol 6.25 mg oral twice daily. 4. Calcitriol 0.25 mcg oral once daily. PHYSICAL EXAMINATION: VITAL SIGNS: BP 119/68, pulse 94, respirations 16, temp 98.9 degrees Fahrenheit, O2 saturations 100% on room air. GENERAL: The patient is awake, alert, and oriented x3. No acute distress noted. He is lying comfortably in bed. HEENT: Atraumatic, normocephalic. Pupils are round and reactive to light. Extraocular muscles intact. Moist mucous membranes noted. NECK: Soft, supple. No JVD. Trachea midline. CARDIOVASCULAR: Positive S1 and S2. Regular rate and rhythm. No murmur auscultated. RESPIRATORY: Clear to auscultation bilaterally. No wheezes, rales, or rhonchi. ABDOMEN: Soft, nontender. Bowel sounds present. MUSCULOSKELETAL: Strength 5+ bilaterally upper and lower extremity. Moves all extremities equal. No edema noted. AV fistula noted in the left upper extremity with good bruit and thrill. Also right chest dialysis catheter in place. NEUROLOGIC: Cranial nerves 2 through 12 grossly intact. The patient is alert and oriented to person, place, and time. Speech intact and normal. Patton coma Scale of 15. Gait not assessed. SKIN: Warm, dry, and intact. No ulcerations. No lesions noted. PSYCHIATRIC: Good mood and affect. LABORATORY DATA: WBC 6.3, RBC 3.18, hemoglobin 9.6, platelet 136. D-dimer 1.31. Sodium 139, potassium 3.7, anion gap 20, BUN 53, creatinine 13.95, estimated GFR 5, glucose 140. Troponin less than 0.010. DIAGNOSTIC IMAGING: Portable chest x-ray is unremarkable. CT chest with contrast was negative for PE. ASSESSMENT AND PLAN: 1. Syncopal episode during dialysis, this was likely secondary to vasovagal response, the patient will be monitored on tele overnight. He is alert and oriented times x3. He shows no focal deficits. The patient currently at his baseline. Vital signs now stable after 1 L of normal saline. 2. Hypotension, as above vital signs have been stable status post 1 L of normal saline prior to arrival. 3. End-stage renal disease, on dialysis, Dr. Schofield is consulted, case and plan discussed with him thoroughly, plan is to run the patient for dialysis in the morning and if he tolerates well, he will likely be discharged later in the afternoon tomorrow with close outpatient followup with Dr. Schofield and his PCP. The patient has insurance and also has a chair for dialysis as outpatient per Dr. Schofield. 4. Deep venous thrombosis and gastrointestinal prophylaxis. 5. Code status, full code. DISPOSITION: The patient will be monitored overnight. He will undergo dialysis with Dr. Schofield tomorrow, if he tolerates dialysis well tomorrow and no other complaints, the patient will likely be discharged in the afternoon with close outpatient followup with Dr. Schofield and his PCP at [facility]. Job ID: [id number]
[2018-10-08 06:34] LABS: #Eosinphils 0.1 thou/uL (0.0-0.7); #Lymphocytes 1.3 thou/uL (1.20-3.40); #Monocytes 0.5 thou/uL (0.11-0.59); #Neutrophils 9.2 thou/uL (1.40-6.50); %Basophils 0.3 % (0.0-1.0); %Eosinophils 1.2 % (0.0-10.0); %Lymphocytes 11.9 % (21.0-51.0); %Monocytes 4.1 % (0.0-10.0); %Neutrophils 82.5 % (42.0-75.0); Hemoglobin 7.7 g/dL (14.0-18.0); Mean Corpuscular Hemoglobin 30.9 pg (27.0-31.0); Mean Corpuscular Volume 90.7 fL (78.0-98.0); Platelet Count 105 thou/uL (130-400); RBC Distribution Width 14.5 % (11.5-14.5); Red Blood Cell (RBC) Count 2.49 mill/uL (4.70-6.10); White Blood Cell (WBC) Count 11.1 thou/uL (4.8-10.8)
[2018-10-08 06:46] LABS: Anion Gap 18 mmol/L (10-20); BUN (Urea Nitrogen) 59 mg/dL (8.9-20.6); Calc. Creatinine Clearance 8 mL/min (70-130); Calcium 7.6 mg/dL (7.8-10.44); Carbon Dioxide 22 mmol/L (22-29); Chloride 99 mmol/L (98-107); Estimated GFR-MDRD 4; Glucose 90 mg/dL (70-105); Potassium 3.9 mmol/L (3.5-5.1); Sodium 135 mmol/L (136-145)
[2018-10-08] MEDS: Amlodipine 5 MG TAB PO SCH ×2 (08:15→20:14)
[2018-10-08] MEDS: Calcitriol 0.25 MCG CAP PO SCH (08:15)
[2018-10-08] MEDS: Carvedilol 6.25 MG TAB PO SCH ×2 (08:16→16:37)
[2018-10-08 08:41] LABS: HBSAg Index 0.35 S/CO (0-0.99); Hep B Surf Ag Non-Reactive S/CO (NonReactive)
[2018-10-08] MEDS ORDERED: Prevnar 13-Val Conj/PF 0.5 ML SYRINGE IM ONE (09:00)
[2018-10-08] MEDS ORDERED: Epoetin (ESRD) 20,000 UNITS/ML SC SCH (09:15)
[2018-10-08] MEDS ORDERED: Epoetin (ESRD) 20,000 UNITS/ML IVP SCH (09:15)
[2018-10-08 09:30] LABS: Hep B Surf AB Reactive (NonReactive)
[2018-10-08 09:32] LABS: HBSAB Concentration 23.16 mIU/mL
[2018-10-08 10:13] LABS: Hemoglobin 8.3 g/dL (14.0-18.0)
[2018-10-08 10:29] LABS: Lactic Acid 0.7 mmol/L (0.5-2.2)
[2018-10-08 10:34] LABS: ALT (SGPT) 20 U/L (8-55); AST (SGOT) 23 U/L (5-34); Albumin 3.5 g/dL (3.5-5.0); Alkaline Phosphatase 64 U/L (40-150); Bilirubin, Direct 0.2 mg/dL (0.1-0.3); Bilirubin, Total 0.7 mg/dL (0.2-1.2); CK (CPK) 72 U/L (30-200); Lipase 108 U/L (8-78); Protein, Total 5.7 g/dL (6.0-8.3)
--- NOTE | 2018-10-08 10:47 | PRG ---
DATE OF SERVICE: 10/08/2018 SUBJECTIVE: Patient was seen and examined at bedside and overnight events noted. Patient denies any shortness of breath or chest pain or palpitation. No history of nausea or vomiting or diarrhea or fever or chills or cramps. OBJECTIVE: GENERAL: This is a well-built male, in no apparent distress. VITAL SIGNS: Temperature 98.5. Heart rate 94. Respiratory rate 18. Blood pressure 109/50. HEENT: Atraumatic, normocephalic. Oral mucosa is moist NECK: Supple. CARDIOVASCULAR: S1, S2 heard. Rate and rhythm regular. RESPIRATORY: Clear to auscultation. GASTROINTESTINAL: Abdomen is soft. MUSCULOSKELETAL: No tenderness. No edema. DERMATOLOGIC: No skin rash. NEUROLOGIC: Alert and awake and oriented X3. No focal neurologic deficits. Moving all the extremities. PSYCHIATRIC: Mood and affect normal. LABORATORY DATA: Potassium 3.9, BUN is 59, creatinine is 15.4. ASSESSMENT AND PLAN: 1. End-stage renal disease. Plan is for dialysis today. We will have 3 hours of dialysis. 2. Edema, controlled. 3. Hypertension, stable. 4. Anemia. We will have Epogen as tolerated. Rule out bleed. We will continue to follow. We will continue dialysis as tolerated. Job ID: [id number]
[2018-10-08] MEDS ORDERED: EPOETIN ALFA-EPBX (ESRD) 10,000 UNIT/ML VIAL SC SCH (12:00)
[2018-10-08] MEDS ORDERED: EPOETIN ALFA-EPBX (ESRD) 10,000 UNIT/ML VIAL IVP SCH (12:00)
[2018-10-08 14:03] LABS: Bilirubin Negative (Negative); Blood, Urine Trace (Negative); Clarity CLEAR (Clear); Glucose, Urine (Dipstick) Negative (Negative); Leukocyte Negative (Negative); Nitrite Negative (Negative); Protein, Urine (Dipstick) 300 mg/dL (Neg-Trace); Urobilinogen 0.2 mg/dL (0.2-1.0); pH, Urine 7.5 (5.0-9.0)
[2018-10-08 14:04] LABS: Bacteria/HPF None Seen HPF (None Seen); Hyaline Casts/LPF 0-3 HYALINE CAST LPF (0-3 Hyaline); RBC/HPF None Seen HPF (0-3); Squamous Epithelial 0-3 HPF (0-3); WBC/HPF 0-3 HPF (0-3)
[2018-10-08 14:06] LABS: Urine Culture Reflex No No
--- NOTE | 2018-10-08 15:20 | PDOC.PN ---
- Subjective Encounter Start Date: 10/08/18 Encounter Start Time: 15:18 Subjective: Patient feeling well and without any complaints. -: States he recalls having intense diffuse itching before the seizure. -: He is unsure how long it lasted but recalls falling and states he remembers dreaming he was riding a bike then woke to EMS surrounding him before losing consciousness again. No loss of bowel or bladder control. No hx of seizures. Denies drug use. No recent WARREN. No further episodes. Feels well in himself. - Objective Resuscitation Status - Order Detail: 10/08/18 01:10 Resuscitation Status Routine Co-Sign Provider: Resuscitation Status: FULL: Full Resuscitation Vital Signs & Weight: Vital Signs (12 hours) Temp Pulse Resp BP Pulse Ox 10/08/18 11:43 98.7 F 87 16 119/63 100 10/08/18 07:29 98.5 F 94 16 109/58 L 100 10/08/18 03:54 98.8 F 104 H 13 117/57 L 100 Weight Weight 163 lb 4.8 oz I&O: 10/07/18 10/08/18 10/09/18 06:59 06:59 06:59 Intake Total 240 Balance 240 Result Diagrams: 10/08/18 09:56 10/08/18 05:56 Additional Labs: Accuchecks 10/07/18 16:32 POC Glucose 148 H Phys Exam - Physical Examination Constitutional: NAD HEENT: PERRLA, moist MMs, sclera anicteric, oral pharynx no lesions Neck: no nodes, no JVD, supple, full ROM Respiratory: clear to auscultation bilateral Cardiovascular: RRR Gastrointestinal: soft, non-tender, no distention, positive bowel sounds Musculoskeletal: no edema, pulses present Neurological: non-focal, normal sensation, moves all 4 limbs Psychiatric: normal affect, A&O x 3 Skin: no rash, normal turgor Dx/Plan (1) New onset seizure Code(s): R56.9 - UNSPECIFIED CONVULSIONS Status: Acute (2) ESRD (end stage renal disease) on dialysis Code(s): N18.6 - END STAGE RENAL DISEASE; Z99.2 - DEPENDENCE ON RENAL DIALYSIS Status: Acute - Plan cont current plan of care Patient for dialysis today, seen by Dr. Schofield. -: Neurology consult placed as believed to have new onset seizure. Denies FHx. -: UA and Urine drug screen requested. -: Anemia, with drop in Hb likely dilutional. Repeat H/H showed improvement -: Continue to monitor. * .
[2018-10-08 20:34] LABS: Amphetamine Not Detected (NotDetected); Barbiturates Screen Not Detected (NotDetected); Benzodiazepine Screen Not Detected (NotDetected); Cocaine Metabolite Screen Not Detected (NotDetected); Medtox Control Line Valid? VALID (VALID); Medtox Reader # READER 1; Methadone Not Detected (NotDetected); Methamphetamine Not Detected (NotDetected); Opiate Screen Not Detected (NotDetected); Oxycodone Screen Not Detected (NotDetected); Phencyclidine (PCP) Not Detected (NotDetected); THC/Cannabinoid Screen Not Detected (NotDetected); Tricyclic Screen Not Detected (NotDetected)
[2018-10-09] MEDS: Calcitriol 0.25 MCG CAP PO SCH (09:37)
[2018-10-09] MEDS: Carvedilol 6.25 MG TAB PO SCH (09:37)
[2018-10-09] MEDS: Amlodipine 5 MG TAB PO SCH (09:38)
[2018-10-09 11:34] LABS: Hemoglobin 7.8 g/dL (14.0-18.0); Mean Corpuscular HGB CONC 32.9 g/dL (32.0-36.0); Mean Corpuscular Hemoglobin 29.5 pg (27.0-31.0); Mean Corpuscular Volume 89.6 fL (78.0-98.0); Mean Platelet Volume 10.1 fL (7.4-10.4); Platelet Count 92 thou/uL (130-400); RBC Distribution Width 14.1 % (11.5-14.5); Red Blood Cell (RBC) Count 2.65 mill/uL (4.70-6.10); White Blood Cell (WBC) Count 7.9 thou/uL (4.8-10.8)
[2018-10-09 11:41] VITALS: BP 125/66; TEMP 98.8
[2018-10-09 11:49] LABS: Anion Gap 16 mmol/L (10-20); BUN (Urea Nitrogen) 31 mg/dL (8.9-20.6); Calc. Creatinine Clearance 11 mL/min (70-130); Calcium 8.7 mg/dL (7.8-10.44); Carbon Dioxide 26 mmol/L (22-29); Chloride 101 mmol/L (98-107); Estimated GFR-MDRD 6; Glucose 86 mg/dL (70-105); Potassium 3.9 mmol/L (3.5-5.1); Sodium 139 mmol/L (136-145)
[2018-10-09 12:08] LABS: #Eosinphils 0.2 thou/uL (0.0-0.7); #Monocytes 0.4 thou/uL (0.11-0.59); #Neutrophils 6.2 thou/uL (1.40-6.50); %Basophils 0.4 % (0.0-1.0); %Eosinophils 2.2 % (0.0-10.0); %Lymphocytes 12.8 % (21.0-51.0); %Monocytes 5.6 % (0.0-10.0); Elliptocytes SLIGHT = 2-5 cells (100X) (0-1/hpf); Hypochromia SLIGHT = 6-15 cells (100X) (0-5/hpf); MDiff Complete? YES; Microcytosis SLIGHT = 6-15 cells (100X) (0-5/hpf); Platelet Morphology Comment Appears Decreased; Polychromasia SLIGHT = 2-3 cells (100X) (0-2/hpf); Tear Drops SLIGHT = 2-5 cells (100X) (0-1/hpf)
--- NOTE | 2018-10-09 12:09 | PRG ---
DATE OF SERVICE: 10/09/2018 SUBJECTIVE: Patient was seen and examined at bedside and overnight events noted. Patient denies any shortness of breath or chest pain or palpitation. No history of nausea or vomiting or diarrhea or fever or chills or cramps. OBJECTIVE: GENERAL: This is a well-built male, in no apparent distress. VITAL SIGNS: Temperature 98.3. Heart rate 75. Respiratory rate 16. Blood pressure 131/70. HEENT: Atraumatic, normocephalic. Oral mucosa is moist NECK: Supple. CARDIOVASCULAR: S1, S2 heard. Rate and rhythm regular. RESPIRATORY: Clear to auscultation. GASTROINTESTINAL: Abdomen is soft. MUSCULOSKELETAL: No tenderness. No edema. DERMATOLOGIC: No skin rash. NEUROLOGIC: Alert and awake and oriented X3. No focal neurologic deficits. Moving all the extremities. PSYCHIATRIC: Mood and affect normal. LABORATORY DATA: Potassium is 3.9, BUN is 59, and creatinine is 15.4. ASSESSMENT AND PLAN: 1. End-stage renal disease, continue dialysis as tolerated. 2. Edema, controlled. 3. Hypertension. 4. Anemia. Monitor hemoglobin. Plan dialysis as tolerated. Job ID: [id number]
--- NOTE | 2018-10-09 20:25 | DIS ---
DATE OF ADMISSION: 10/07/2018 DATE OF DISCHARGE: 10/09/2018 PRIMARY CARE PHYSICIAN: Lupillo Camarillo. PROCEDURES: 1. The patient had a chest x-ray, which shows unremarkable AP view of the chest. 2. The patient had a chest thorax CTA, which shows no evidence of pulmonary emboli. HOSPITAL COURSE: Mr. Nyla Lazaro is a 23-year-old male with a past medical history of hypertension, end-stage renal disease, currently on dialysis. Reports he started dialysis 4 weeks ago. He was transported to [facility] after becoming unresponsive during dialysis earlier in the day. It was reported the patient was 3 minutes into his dialysis when he became hypotensive and had a syncopal episode. EMS was called and they transported him to [facility]. Blood pressure was initially systolically in the 40s. He was given 1 L of normal saline per EMS and had regained consciousness. Upon arriving to the emergency room, the patient did report he was slightly short of breath. Initial workup showed a D-dimer that was elevated. CTA of the chest was negative and his chest x-ray was also found to be unremarkable. While in the emergency room, vital signs returned to normal. The patient's mentation also returned normal. He denied any fever or chills. Denied any headache, blurred vision, or dizziness. Denied any abdominal pain, nausea, or vomiting. Dr. Schofield was consulted, who wanted the patient admitted overnight and will have dialysis done the following morning. The patient was admitted to the observation unit. The patient underwent dialysis while in the hospital, tolerated 3 hours without any issue, was kept another night. Vital signs have remained stable. Lab work also remained stable. The patient was given epoetin 10,000 units during this hospitalization. Dr. Schofield did see patient prior to discharge, felt like he was stable enough for discharge and recommended followup with PCP and himself and to continue dialysis as scheduled. The patient was subsequently discharged home. REVIEW OF SYSTEMS: The patient was examined prior to discharge. He denied any chest pain, shortness of breath, any dizziness, or any syncopal episodes while he has been hospitalized. Reports that he was able to tolerate his dialysis without any issue. All other systems are reviewed and are negative unless mentioned in the hospital course. PHYSICAL EXAMINATION: VITAL SIGNS: Temperature is 98.8, pulse is 85, respirations 18, pulse ox is 100% on room air, and blood pressure is 125/66. CONSTITUTIONAL: The patient is alert and oriented to person, place, and time. Appears nontoxic. HEENT: Head is atraumatic and normocephalic. Eyes, eyelids are normal to inspection. Pupils are equally round and reactive to light. ENT, mouth exam is normal. Mucous membranes are moist. RESPIRATORY: Chest, breath sounds are clear. Chest movement is symmetrical. CARDIOVASCULAR: Heart rate, regular rate and rhythm. Heart sounds are normal. There is a dialysis port in right upper chest. ABDOMEN: Nontender. Bowel sounds are heard. EXTREMITIES: Lower extremity, normal inspection. Pedal pulses equal. No edema. NEUROLOGIC: The patient is alert and oriented to person, place, and time. Speech is normal. SKIN: Warm, dry, and normal in color. PSYCH: He has a normal affect. LABORATORY DATA: Lab values; white blood cell count is 7.9, hemoglobin 7.8, hematocrit is 23.7, and platelet count is 92. Chemistry; sodium is 139, potassium is 3.9, chloride is 101, gap is 16, BUN is 31, creatinine has improved to 10.72, estimated GFR is 6, glucose is 86, and calcium is 8.7. Liver enzymes are unremarkable. Urine and urine tox screen are negative. DISCHARGE DIAGNOSES: 1. End-stage renal disease. 2. Edema. 3. Hypertension. 4. Anemia. 5. Hypotension, resolved. 6. Syncopal episode, but etiology unknown, we will suspect vasovagal. ALLERGIES: NONE. MEDICATIONS: Home medications were started on discharge; 1. Norvasc 5 mg p.o. b.i.d. 2. Calcitriol 0.25 mcg p.o. daily. 3. Coreg 6.25 mg p.o. b.i.d. 4. Vitamin D3 of 2000 units p.o. daily. The patient's condition on discharge stable. The patient discharged home. The patient should follow up with [facility] within the next week. Should continue dialysis as scheduled. He should follow up with Dr. Schofield in the next 2 to 3 weeks. Job ID: [id number]
--- NOTE | 2018-10-10 05:34 | CON ---
DATE OF CONSULTATION: 10/07/2018 CONSULTING PHYSICIAN: REASON FOR CONSULTATION: End-stage renal disease evaluation and care. REASON FOR ADMISSION: Seizures during dialysis. HISTORY OF PRESENT ILLNESS: This is a 23-year-old male with history of end-stage renal disease and hypertension, who came to the hospital with above complaints. The patient started dialysis and started having hypertension and seizure and was sent to the hospital. He described feeling better now. No chest pain. No nausea or vomiting. No fever or chills. PAST MEDICAL HISTORY: Positive for end-stage renal disease, hypertension, and secondary hyperparathyroidism. PAST SURGICAL HISTORY: Dialysis access placement. HOME MEDICATIONS: Include; 1. Vitamin D3. 2. Coreg. 3. Calcitriol. 4. Amlodipine. ALLERGIES: NO KNOWN DRUG ALLERGIES. SOCIAL HISTORY: No smoking, alcohol, or illicit drugs abuse. FAMILY HISTORY: No history of any kidney disease. REVIEW OF SYSTEMS: CONSTITUTIONAL: Negative for weight loss or gain, ability to conduct usual activities. SKIN: Negative for rash, itching. EYES: Negative for double vision, pain. ENT/MOUTH: Negative for nose bleeding, neck stiffness, pain, tenderness. CARDIOVASCULAR: Negative for palpitations, dyspnea on exertion, orthopnea. RESPIRATORY: Negative for shortness of breath, wheezing, cough, hemoptysis, fever or night sweats. GASTROINTESTINAL: Negative for poor appetite, abdominal pain, heartburn, nausea, vomiting, constipation, or diarrhea. GENITOURINARY: Negative for urgency, frequency, dysuria, nocturia. MUSCULOSKELETAL: Negative for pain, swelling. NEUROLOGIC/PSYCHIATRIC: Negative for anxiety, depression. ALLERGY/IMMUNOLOGIC: Negative for skin rash, bleeding tendency. PHYSICAL EXAMINATION: GENERAL: Reveals a well-built male, in no apparent distress. VITAL SIGNS: Reviewed. HEENT: Atraumatic, normocephalic. CHEST: Clear. CARDIOVASCULAR: S1 and S2 heard. GASTROINTESTINAL: Abdomen is soft. MUSCULOSKELETAL: 1+ edema. DERMATOLOGIC: No skin rash. NEUROLOGIC: Alert and awake. PSYCHIATRIC: Normal mood and affect. LABORATORY DATA: Hemoglobin is 9.6. Potassium is 3.7, BUN is 53, creatinine 13.9, albumin is 3.3. ASSESSMENT AND PLAN: 1. End-stage renal disease. Continue on hemodialysis as tolerated. 2. Edema, controlled. 3. Hypertension, stable. 4. Anemia. We will monitor. Plan is to monitor labs. dialysis. We will follow. Thank you for the consult. Job ID: [id number]
== END 2018-10-09 13:49 | disposition home or self-care (01) ==
LOC: ERS 16:23 → 2SW 20:29
PROVIDERS: ADMIT Internal Medicine; ATTEND Internal Medicine
DX: I95.9 Hypotension, unspecified (principal); R55 Syncope and collapse; R56.9 Unspecified convulsions; I11.0 Hypertensive heart disease with heart failure; N18.6 End stage renal disease; D64.9 Anemia, unspecified; R60.9 Edema, unspecified; Z79.899 Other long term (current) drug therapy; Z99.2 Dependence on renal dialysis
CPT/HCPCS: 36415; 36416; 71045; 71275; 80048; 80053; 80076; 80306; 81001; 82550; 83605; 83690; 84484; 85025; 85379; 86706; 86850; 86900; 86901; 87340; 90471; 90670; 90935; 93005; 96372; G0009; G0257; G0378; Q5105; Q9966

== ENCOUNTER 2018-12-13 12:32 | Day surgery (SDC) | payer SELFPAY ==
--- NOTE | 2018-12-06 15:40 | HP ---
HISTORY OF PRESENT ILLNESS: Catalino Redmond is a 23-year-old male patient who has a left Mihai fistula established, end-stage renal disease, 09/16/2018. They are accessing this Mihai fistula, but not ready to move his hemodialysis catheter until I use the bigger catheters. He presents to my office today for discussion regarding peritoneal dialysis. Plan is to place a peritoneal dialysis catheter and by the time of placing this peritoneal dialysis catheter laparoscopically, they are no longer using his hemodialysis catheter for dialysis. We will remove his hemodialysis catheter prior to discharge. We can use his hemodialysis catheter for IV access and blood draws during the procedure as an outpatient experience. He is followed by Dr. Schofield. He wants to go to [facility] dialysis. PAST SURGICAL HISTORY: Hemodialysis catheter, left Mihai fistula. PAST MEDICAL HISTORY: End-stage renal disease. SOCIAL HISTORY: Tobacco none. Alcohol, none. PHYSICAL EXAMINATION: VITAL SIGNS: Weight 160 pounds, 67 inches, 25 BMI, blood pressure 124/71, pulse 80, temperature 98.6 degrees. HEAD, EARS, EYES, NOSE, AND THROAT: Unremarkable. LUNGS: Clear to auscultation. CARDIAC: Regular rate and rhythm without murmur or gallop. ABDOMEN: Soft and nontender. No hernias evident. EXTREMITIES: Unremarkable. ASSESSMENT: Left arm Mihai fistula, good thrill and bruit. ASSESSMENT AND PLAN: End-stage renal disease. We will plan laparoscopic peritoneal dialysis catheter. He understands risks and benefits of procedure and consents. If appropriate at the time of the visit, we will also plan for removal of his hemodialysis catheter within the procedure prior to discharge. Job ID: [id number]
[2018-12-12 16:17] VITALS: BMI 26.4
[~2018-12-13 12:32] MED LIST changes: +Dexamethasone 20 MG/5 ML VIAL ONE; +Glycopyrrolate 0.2 MG/ML 5 ML SYRINGE ONE; -ISOVUE-370 76%-LOCM 1 ML ONE; +Lidocaine 1% PF 5 ML VIAL ONE; +Ondansetron PF 4 MG/2 ML Vial ONE; +PROPOFOL 200 MG/20 ML VIAL ONE; +Rocuronium Bromide 10 MG/ML (10ML VIAL) ONE
[2018-12-13 14:31] LABS: #Basophils 0.1 thou/uL (0.0-0.2); #Eosinphils 0.4 thou/uL (0.0-0.7); #Lymphocytes 1.8 thou/uL (1.20-3.40); #Monocytes 0.6 thou/uL (0.11-0.59); %Basophils 1.4 % (0.0-1.0); %Eosinophils 6.4 % (0.0-10.0); %Lymphocytes 30.4 % (21.0-51.0); %Monocytes 9.9 % (0.0-10.0); %Neutrophils 51.9 % (42.0-75.0); Hemoglobin 11.8 g/dL (14.0-18.0); Mean Corpuscular Hemoglobin 31.9 pg (27.0-31.0); Mean Corpuscular Volume 96.5 fL (78.0-98.0); Mean Platelet Volume 9.2 fL (7.4-10.4); Platelet Count 132 thou/uL (130-400); RBC Distribution Width 12.4 % (11.5-14.5); Red Blood Cell (RBC) Count 3.69 mill/uL (4.70-6.10); White Blood Cell (WBC) Count 5.8 thou/uL (4.8-10.8)
[2018-12-13 14:41] LABS: Anion Gap 17 mmol/L (10-20); BUN (Urea Nitrogen) 82 mg/dL (8.9-20.6); Calc. Creatinine Clearance 10 mL/min (70-130); Calcium 10.6 mg/dL (7.8-10.44); Carbon Dioxide 30 mmol/L (22-29); Chloride 99 mmol/L (98-107); Estimated GFR-MDRD 5; Glucose 90 mg/dL (70-105); Potassium 5.3 mmol/L (3.5-5.1); Sodium 141 mmol/L (136-145)
[2018-12-13] MEDS ORDERED: Lidocaine 2% PF 5 ML VIAL ONE (16:11)
[2018-12-13] MEDS ORDERED: Heparin 5,000 UNITS/ML VIAL ONE (16:11)
[2018-12-13] MEDS ORDERED: Bupivacaine HCl 0.5%/Epinephrine 1:200,000/PF 30 ml Vial ONE (16:11)
[2018-12-13] MEDS ORDERED: Heparin 10,000 UNITS/1 ML VIAL ONE (16:17)
[2018-12-13] MEDS ORDERED: Fentanyl 100 MCG/2 ML VIAL ONE (16:18)
[2018-12-13] MEDS ORDERED: SUGAMMADEX SODIUM 500 MG/5 ML VIAL ONE (17:35)
[2018-12-13] MEDS ORDERED: traMADol HCl 50 MG TAB ONE (21:08)
--- NOTE | 2018-12-14 00:13 | OP ---
DATE OF PROCEDURE: 12/13/2018 POSTOPERATIVE DIAGNOSES: End-stage renal disease, desires peritoneal dialysis functioning left Mihai fistula. ANESTHESIA: General, local 0.5% Marcaine with epinephrine, 30 mL mixed with Xylocaine 10 mL. PROCEDURE PERFORMED: Laparoscopic peritoneal dialysis catheter, laparoscopic sling suture to direct the catheter into the pelvis, removal of hemodialysis catheter. DESCRIPTION OF PROCEDURE: The patient was taken to the operating room where under general anesthesia in supine position, abdomen was prepared with ChloraPrep and draped in routine fashion. Bilateral far lateral subcostal incision was made and pneumoperitoneum to 15 mmHg obtained with a Veress needle, replaced with a 5 port and laparoscope inserted. Contralateral 5 port placed under laparoscopic visualization. Incision was made in the left lower quadrant just at the umbilical level and 8 mm port directed through the subcutaneous tissue caudally penetrating the rectus sheath inferiorly and traveling through the rectus sheath, visualized laparoscopically penetrating the abdominal wall dependently inferiorly, placing the peritoneal dialysis catheter double cuffed pigtail, placing the internal cuff in the rectus sheath, removing the port using the [place] dissector through the planned exit site. Stab incision made inferior and lateral left lower quadrant. The catheter grasped and pulled out the exit site with the external cuff beneath the skin. Subcutaneous tissue was approximated with 4-0 Monocryl, skin with subdermal 4-0 Monocryl and Fleming glue applied. The catheter although directed inferiorly seemed to be redundant superiorly. Thus, a sling suture of 2-0 Ethibond was placed with a GraNee needle, transabdominal wall fixation. Omentum was not abundant enough to reach into the pelvis and omentopexy was not necessary. Pneumoperitoneum reduced. All instruments were removed and all skin incisions approximated with subdermal 4-0 Monocryl and Fleming glue applied. Hemodialysis catheter IJ cuffed dissected free and then removed. Gauze dressing applied. The patient tolerated the procedure well. Job ID: [id number]
== END 2018-12-13 22:00 | disposition home or self-care (01) ==
LOC: SDC 12:32
PROVIDERS: ATTEND Specialist
PROC: 05PY33Z Removal of Infusion Device from Upper Vein, Percutaneous Approach (ICD-10-PCS; principal; 2018-12-13)
PROC: 0WHG43Z Insertion of Infusion Device into Peritoneal Cavity, Percutaneous Endoscopic Approach (ICD-10-PCS; principal; 2018-12-13)
DX: N18.6 End stage renal disease (principal); Z99.2 Dependence on renal dialysis
CPT/HCPCS: 80048; 85025; J0670; J0690; J1100; J1644; J2001; J2405; J2704; J3010

== ENCOUNTER 2019-01-23 16:25 | Inpatient (IN) | payer SELFPAY ==
[2019-01-23 17:21] LABS: #Eosinphils 0.1 thou/uL (0.0-0.7); #Lymphocytes 0.7 thou/uL (1.20-3.40); #Monocytes 0.3 thou/uL (0.11-0.59); %Basophils 0.8 % (0.0-1.0); %Eosinophils 1.3 % (0.0-10.0); %Lymphocytes 17.6 % (21.0-51.0); %Monocytes 6.4 % (0.0-10.0); %Neutrophils 73.9 % (42.0-75.0); Mean Corpuscular HGB CONC 34.7 g/dL (32.0-36.0); Mean Corpuscular Hemoglobin 30.5 pg (27.0-31.0); Mean Corpuscular Volume 87.9 fL (78.0-98.0); Mean Platelet Volume 9.9 fL (7.4-10.4); Platelet Count 96 thou/uL (130-400); RBC Distribution Width 11.6 % (11.5-14.5); Red Blood Cell (RBC) Count 3.92 mill/uL (4.70-6.10); White Blood Cell (WBC) Count 4.1 thou/uL (4.8-10.8)
[2019-01-23 17:38] LABS: ALT (SGPT) 15 U/L (8-55); AST (SGOT) 14 U/L (5-34); Albumin 4.8 g/dL (3.5-5.0); Alkaline Phosphatase 95 U/L (40-150); Anion Gap 33 mmol/L (10-20); Carbon Dioxide 17 mmol/L (22-29); Chloride 92 mmol/L (98-107); Globulin 3.2 g/dL (2.4-3.5); Glucose 114 mg/dL (70-105); Potassium 4.7 mmol/L (3.5-5.1); Sodium 137 mmol/L (136-145)
[2019-01-23 17:52] LABS: BUN (Urea Nitrogen) 166 mg/dL (8.9-20.6)
[2019-01-23 17:59] LABS: Calc. Creatinine Clearance 0 mL/min (70-130); Estimated GFR-MDRD 2
[2019-01-23] MEDS ORDERED: Acetaminophen 500 MG TAB ONE (18:47)
[2019-01-23] MEDS ORDERED: Metoclopramide HCl 10 MG TAB ONE (18:47)
[2019-01-23] MEDS ORDERED: traMADol HCl 50 MG TAB ONE (19:32)
[2019-01-23] MEDS ORDERED: Fluorescein Opthalmic Strip ONE (19:33)
[2019-01-23] MEDS ORDERED: Tetracaine HCl 0.5% Ophth Soln 15 ML Bottle EA EYE SCH (20:00)
[2019-01-23] MEDS ORDERED: Proparacaine 0.5% Opth 15 ML BOT ONE (20:06)
[2019-01-23] MEDS ORDERED: Ondansetron ODT 4 MG TAB ONE (20:21)
[2019-01-24 00:21] VITALS: BMI 24.2
[2019-01-24] MEDS ORDERED: HYDROcodone/Acetaminophen 5/325 mg Tablet PO PRN ×2 (00:38)
[2019-01-24] MEDS ORDERED: Ondansetron ODT 4 MG TAB SL PRN (00:38)
[2019-01-24] MEDS ORDERED: Ondansetron PF 4 MG/2 ML Vial IVP PRN (00:38)
--- NOTE | 2019-01-24 08:50 | CON ---
DATE OF CONSULTATION: 01/23/2019 CONSULTING PHYSICIAN: REASON FOR CONSULTATION: End-stage renal disease, dialysis care. REASON FOR ADMISSION: Weakness and nausea. HISTORY OF PRESENT ILLNESS: A 23-year-old male with history of end-stage renal disease, on peritoneal dialysis; hypertension, came to the hospital with above complaints and was found to have elevated BUN and creatinine, is being admitted. The patient has been recently started on peritoneal dialysis adequacy test has not done yet. No fever or chills. No abdominal pain. PAST MEDICAL HISTORY: Positive for hypertension and same as above. PAST SURGICAL HISTORY: Dialysis catheter placement, PD catheter placement, and fistula placement. HOME MEDICATIONS: 1. Amlodipine. 2. Vitamin D3. 3. Carvedilol. 4. Calcitriol. ALLERGIES: NO KNOWN DRUG ALLERGIES. SOCIAL HISTORY: No smoking, alcohol, or illicit drugs. FAMILY HISTORY: No history of kidney disease. REVIEW OF SYSTEMS: CONSTITUTIONAL: Negative for weight loss or gain, ability to conduct usual activities. SKIN: Negative for rash, itching. EYES: Negative for double vision, pain. ENT/MOUTH: Negative for nose bleeding, neck stiffness, pain, tenderness. CARDIOVASCULAR: Negative for palpitations, dyspnea on exertion, orthopnea. RESPIRATORY: Negative for shortness of breath, wheezing, cough, hemoptysis, fever or night sweats. GASTROINTESTINAL: Negative for poor appetite, abdominal pain, heartburn, nausea, vomiting, constipation, or diarrhea. GENITOURINARY: Negative for urgency, frequency, dysuria, nocturia. MUSCULOSKELETAL: Negative for pain, swelling. NEUROLOGIC/PSYCHIATRIC: Negative for anxiety, depression. ALLERGY/IMMUNOLOGIC: Negative for skin rash, bleeding tendency. Otherwise negative except as stated per HPI. PHYSICAL EXAMINATION: GENERAL: This is a well-built male, in no apparent distress. VITAL SIGNS: Temperature 98.6, pulse 78, respiratory rate 18, blood pressure 159/89. HEENT: Atraumatic, normocephalic. Oral mucosa is moist. NECK: Supple. CVS: S1 and S2 heard. Rate and rhythm regular. RESPIRATORY: Clear. GI: Abdomen is soft MUSCULOSKELETAL: 1+ edema. DERMATOLOGIC: No skin rash. NEUROLOGIC: Alert, awake. PSYCHIATRIC: Mood and affect normal. LABORATORY DATA: Hemoglobin is 12. Potassium is 4.7, BUN is 166, creatinine is 25. ASSESSMENT AND PLAN: 1. End-stage renal disease with uremia. Plan is to increase the dose of peritoneal dialysis tonight and repeat labs in the morning. If not better, he might need few sessions of hemodialysis. 2. Metabolic acidosis. 3. Anemia. 4. , remove fluid. 5. Edema, controlled. Plan is to increase the dose of peritoneal dialysis tonight and recheck labs. If not better, might need hemodialysis for few sessions. We will continue to follow. Thank you for the consult. Job ID: [id number]
[2019-01-24] MEDS ORDERED: Acetaminophen 650 MG Suppository PR PRN (09:12)
[2019-01-24] MEDS ORDERED: Ondansetron ODT 4 MG TAB PO PRN (09:12)
[2019-01-24] MEDS ORDERED: Amlodipine 10 MG TAB PO SCH (09:15)
[2019-01-24] MEDS ORDERED: Carvedilol 6.25 MG TAB PO SCH (09:15)
[2019-01-24 09:48] LABS: #Eosinphils 0.1 thou/uL (0.0-0.7); #Lymphocytes 1.5 thou/uL (1.20-3.40); #Monocytes 0.3 thou/uL (0.11-0.59); #Neutrophils 2.4 thou/uL (1.40-6.50); %Basophils 0.3 % (0.0-1.0); %Eosinophils 2.6 % (0.0-10.0); %Lymphocytes 34.6 % (21.0-51.0); %Monocytes 7.2 % (0.0-10.0); %Neutrophils 55.4 % (42.0-75.0); Mean Corpuscular HGB CONC 34.7 g/dL (32.0-36.0); Mean Corpuscular Hemoglobin 30.5 pg (27.0-31.0); Mean Corpuscular Volume 87.9 fL (78.0-98.0); Mean Platelet Volume 9.7 fL (7.4-10.4); Platelet Count 89 thou/uL (130-400); RBC Distribution Width 11.5 % (11.5-14.5); Red Blood Cell (RBC) Count 4.24 mill/uL (4.70-6.10); White Blood Cell (WBC) Count 4.3 thou/uL (4.8-10.8)
[2019-01-24 10:03] LABS: Anion Gap 31 mmol/L (10-20); Calcium 10.5 mg/dL (7.8-10.44); Carbon Dioxide 19 mmol/L (22-29); Chloride 93 mmol/L (98-107); Glucose 103 mg/dL (70-105); Potassium 4.3 mmol/L (3.5-5.1); Sodium 139 mmol/L (136-145)
[2019-01-24 10:10] LABS: Calc. Creatinine Clearance 5 mL/min (70-130); Estimated GFR-MDRD 2
[2019-01-24 10:14] LABS: BUN (Urea Nitrogen) 156 mg/dL (8.9-20.6)
[2019-01-24] MEDS: Acetaminophen 325 MG TAB PO PRN ×2 (14:05→18:15)
[2019-01-24] MEDS: Brimonidine Tartrate 0.2% Ophth Soln 5 ml Bottle L EYE SCH ×2 (15:00→20:00)
[2019-01-24] MEDS: Timolol 0.5% Ophth Soln 5 ml Bottle L EYE SCH ×2 (15:00→20:01)
--- NOTE | 2019-01-24 15:23 | PRG ---
DATE OF SERVICE: 01/24/2019 SUBJECTIVE: Patient was seen and examined at bedside and overnight events noted. Patient denies any shortness of breath or chest pain or palpitation. No history of nausea or vomiting or diarrhea or fever or chills or cramps. OBJECTIVE: GENERAL: This is a well-built male, in no acute distress. VITAL SIGNS: Temperature 97.8, heart rate 70, respiratory rate 16, and blood pressure 143/90. HEENT: Atraumatic, normocephalic. Oral mucosa is moist. NECK: Supple. CARDIOVASCULAR: S1, S2 heard. Rate and rhythm regular. RESPIRATORY: Clear to auscultation. GASTROINTESTINAL: Abdomen is soft. MUSCULOSKELETAL: No tenderness. No edema. DERMATOLOGIC: No skin rash. NEUROLOGIC: Alert and awake and oriented X3. No focal neurologic deficits. Moving all the extremities. PSYCHIATRIC: Mood and affect normal. LABORATORY DATA: BUN is 156, creatinine is greater than 25, and potassium 4.3. ASSESSMENT AND PLAN: 1. End-stage renal disease. Plan is to continue on PD dialysis. 2. Edema, controlled. 3. Hypertension. 4. Metabolic acidosis, better. 5. Anemia. We will monitor. Plan is to continue on PD as tolerated. We will follow. BUN is getting better. Job ID: [id number]
[2019-01-24] MEDS: Carvedilol 6.25 MG TAB PO SCH (16:09)
[2019-01-24] MEDS ORDERED: AcetaZOLAMIDE 250 MG TAB PO SCH (19:15)
[2019-01-24] MEDS: Famotidine/PF 20 mg/2ml Vial SLOW IVP SCH (20:01)
[2019-01-24] MEDS: Amlodipine 5 MG TAB PO SCH (20:01)
--- NOTE | 2019-01-24 20:16 | HP ---
TIME OF INITIAL ASSESSMENT: 08:00 a.m. CHIEF COMPLAINT: Weakness and headache. HISTORY OF PRESENT ILLNESS: Mr. Lazaro is a 23-year-old gentleman with a history of end-stage renal disease, who is currently on peritoneal dialysis with a known history of hypertension, who presents due to generalized weakness and fatigue. The patient also reports having a left frontal headache associated with "ruptured vein" to the left eye. The patient states he has been seen by an block cableman, who referred him to an stem shaper, however, has not been seen yet. He states this has been ongoing for the last couple of months. He has sensitivity to light. Denies any trauma to his eye. At the moment, he reports feeling nauseated. The patient presented to the emergency department last night and was seen by Dr. Schofield. He was noted to be in metabolic acidosis secondary to uremia. The patient was recommended peritoneal dialysis, which he did receive last night. Per Dr. Schofield's note, he was to be assessed today for further peritoneal dialysis or hemodialysis if deemed necessary. Laboratory studies obtained in the emergency department showed an elevated BUN of 166, creatinine greater than 25, and GFR of 2. The patient states he does still make some urine. Denies any dysuria or hematuria. Laboratory studies were otherwise notable for a white count of 4.1, hemoglobin of 12, hematocrit of 34.5, and platelet count of 96. Potassium was normal. He had Zofran in the emergency department for nausea and was given Ultram as well as Reglan and tetracaine for his headache and eye discomfort. The patient denies any vomiting. No abdominal pain or cramping. Reports having normal bowel movements. All other review of systems are negative. PAST MEDICAL HISTORY: 1. Hypertension. 2. End-stage renal disease, receiving peritoneal dialysis. PAST SURGICAL HISTORY: 1. Dialysis catheter placement. 2. PD catheter placement. 3. Fistula placement. SOCIAL HISTORY: The patient denies any tobacco use, alcohol consumption, or illicit drug use. FAMILY HISTORY: Noncontributory. ALLERGIES: NO KNOWN DRUG ALLERGIES. CURRENT MEDICATIONS: 1. Amlodipine. 2. Vitamin D3. 3. Carvedilol. 4. Calcitriol. PHYSICAL EXAMINATION: GENERAL: The patient appears well developed, well nourished, and in no acute distress. He is found resting comfortably. VITAL SIGNS: Temperature 98.3, pulse 72, respirations 16, O2 saturation 99% on room air, blood pressure 157/98. HEENT: Normocephalic and atraumatic. Pupils difficult to assess as the patient with sensitivity to light in his left eye. When the light is on, he rolls eye to the back of his head. He is able to look straight when the lights are off and when there is no direct light into his eye. No periorbital edema, swelling, or redness. Oropharynx is clear. NECK: Supple. LUNGS: Clear to auscultation bilaterally. CARDIAC: Regular rate and rhythm. ABDOMEN: Soft, nontender, nondistended. No erythema or swelling at peritoneal catheter insertion sites or fistula insertion site. EXTREMITIES: There is no lower leg swelling or edema. NEUROLOGIC: Alert and oriented x3. SKIN: Without rash or jaundice. IMPRESSION AND PLAN: Mr. Redmond is a pleasant 23-year-old gentleman, who is being referred for management of uremia, metabolic acidosis requiring peritoneal dialysis yesterday and again today. The patient has been seen by Dr. Schofield in the emergency department yesterday. He has had some slight improvement in his BUN from 166 to 156. We have requested repeat laboratory studies including magnesium. Further management as per Dr. Schofield. Of note, a consultation has been placed with Dr. Jimenez for further evaluation of his left eye. The patient is complaining currently of nausea and will be given Zofran for nausea. We will continue to monitor his blood pressure. We will reconcile his home medications. Code status is full. His surrogate decision maker is his aunt, Beba Lazaro. The patient's case was discussed with Dr. Sandoval, who agrees with plan of care as described above. She has advised changing status to inpatient. Job ID: [id number]
[2019-01-24] MEDS: AcetaZOLAMIDE 250 MG TAB PO SCH (23:20)
[2019-01-25] MEDS: AcetaZOLAMIDE 250 MG TAB PO SCH ×4 (05:07→23:29)
[2019-01-25 06:38] LABS: Anion Gap 31 mmol/L (10-20); Calcium 10.5 mg/dL (7.8-10.44); Carbon Dioxide 16 mmol/L (22-29); Chloride 93 mmol/L (98-107); Glucose 109 mg/dL (70-105); Magnesium 3.1 mg/dL (1.6-2.6); Potassium 4.3 mmol/L (3.5-5.1); Sodium 136 mmol/L (136-145)
[2019-01-25 06:49] LABS: BUN (Urea Nitrogen) 141 mg/dL (8.9-20.6)
[2019-01-25 06:50] LABS: #Eosinphils 0.1 thou/uL (0.0-0.7); #Lymphocytes 1.2 thou/uL (1.20-3.40); #Monocytes 0.4 thou/uL (0.11-0.59); #Neutrophils 3.2 thou/uL (1.40-6.50); %Basophils 0.5 % (0.0-1.0); %Eosinophils 2.4 % (0.0-10.0); %Lymphocytes 24.9 % (21.0-51.0); %Monocytes 8.6 % (0.0-10.0); %Neutrophils 63.6 % (42.0-75.0); Hemoglobin 12.9 g/dL (14.0-18.0); Mean Corpuscular HGB CONC 34.8 g/dL (32.0-36.0); Mean Corpuscular Hemoglobin 30.6 pg (27.0-31.0); Mean Corpuscular Volume 87.7 fL (78.0-98.0); Mean Platelet Volume 10.1 fL (7.4-10.4); Platelet Count 97 thou/uL (130-400); RBC Distribution Width 11.5 % (11.5-14.5); Red Blood Cell (RBC) Count 4.22 mill/uL (4.70-6.10)
[2019-01-25 06:57] LABS: Calc. Creatinine Clearance 5 mL/min (70-130); Estimated GFR-MDRD 2
[2019-01-25] MEDS: Amlodipine 5 MG TAB PO SCH ×2 (08:22→20:03)
[2019-01-25] MEDS: Famotidine/PF 20 mg/2ml Vial SLOW IVP SCH (08:23)
[2019-01-25] MEDS: Carvedilol 6.25 MG TAB PO SCH ×2 (08:23→18:26)
[2019-01-25] MEDS: Brimonidine Tartrate 0.2% Ophth Soln 5 ml Bottle L EYE SCH ×3 (08:24→20:15)
[2019-01-25] MEDS: Timolol 0.5% Ophth Soln 5 ml Bottle L EYE SCH ×3 (08:31→20:03)
[2019-01-25] MEDS ORDERED: Calcitriol 0.25 MCG CAP PO SCH (09:00)
--- NOTE | 2019-01-25 10:59 | PRG ---
DATE OF SERVICE: 01/25/2019 SUBJECTIVE: Patient was seen and examined at bedside and overnight events noted. Patient denies any shortness of breath or chest pain or palpitation. No history of nausea or vomiting or diarrhea or fever or chills or cramps. OBJECTIVE: GENERAL: This is a well-built male, in no apparent distress. VITAL SIGNS: Temperature 93. Heart rate 84. Respiratory rate 18. Blood pressure 146/82. HEENT: Atraumatic, normocephalic. Oral mucosa is moist NECK: Supple. CARDIOVASCULAR: S1, S2 heard. Rate and rhythm regular. RESPIRATORY: Clear to auscultation. GASTROINTESTINAL: Abdomen is soft. MUSCULOSKELETAL: No tenderness. No edema. DERMATOLOGIC: No skin rash. NEUROLOGIC: Alert and awake and oriented X3. No focal neurologic deficits. Moving all the extremities. PSYCHIATRIC: Mood and affect normal. LABORATORY DATA: Potassium 4.3, BUN is 141, creatinine is 25. ASSESSMENT AND PLAN: 1. End-stage renal disease. Continue on peritoneal dialysis. We will have another session on hemodialysis given the elevated BUN. 2. Edema. 3. plan to continue on dialysis as tolerated. Job ID: [id number]
[2019-01-25 15:15] LABS: HBSAg Index 0.31 S/CO (0-0.99); Hep B Surf Ag Non-Reactive S/CO (NonReactive)
[2019-01-25] MEDS: Acetaminophen 325 MG TAB PO PRN ×2 (16:42→20:15)
[2019-01-25] MEDS: Ondansetron PF 4 MG/2 ML Vial IVP PRN (20:08)
[2019-01-25] MEDS ORDERED: Metoclopramide HCl 10 MG/2 ML VIAL IVP PRN (20:50)
--- NOTE | 2019-01-25 22:21 | PDOC.HOSPP ---
- Subjective Subjective: Still feels sleepy. Otherwise, no complaints. - Objective Vital Signs & Weight: Vital Signs (12 hours) Temp Pulse Resp BP BP BP Pulse Ox 01/25/19 20:03 80 01/25/19 20:01 94 L 01/25/19 19:11 98.3 F 80 20 142/89 H 94 L 01/25/19 18:26 142/89 H 01/25/19 16:41 75 154/95 H 01/25/19 11:20 98.4 F 82 18 126/79 97 Weight Weight 154 lb 9.6 oz I&O: 01/24/19 01/25/19 01/26/19 06:59 06:59 06:59 Intake Total 240 480 Output Total 2804 Balance 240 -6924 Result Diagrams: 01/25/19 05:26 01/25/19 05:26 ROS - Medication Medications: Active Medications Generic Name Dose Route Start Last Admin Trade Name Freq PRN Reason Stop Dose Admin Acetaminophen 650 mg 01/24/19 09:12 01/25/19 20:15 Tylenol PO 650 mg Q4H PRN Administration Headache/Fever/Mild Pain (1-3) Acetazolamide 250 mg 01/24/19 23:59 01/25/19 18:27 Diamox PO 250 mg Q6HR EDELMIRA Administration Amlodipine Besylate 5 mg 01/24/19 21:00 01/25/19 20:03 Norvasc PO 5 mg BID EDELMIRA Administration Brimonidine Tartrate 0 drop 01/24/19 15:00 01/25/19 20:15 Alphagan 0.2% Ophth Soln L EYE 1 drp TID EDELMIRA Administration Carvedilol 6.25 mg 01/24/19 17:00 01/25/19 18:26 Coreg PO 6.25 mg BID-WM EDELMIRA Administration Miscellaneous Medication 1 each 01/24/19 17:50 01/24/19 19:23 Pharmacy To Dose PO 02/03/19 17:51 1 each ONE PRN Administration Pharmacy to dose Ondansetron HCl 4 mg 01/24/19 09:12 01/24/19 14:06 Zofran Odt PO 4 mg Q6H PRN Administration Nausea/Vomiting Ondansetron HCl 4 mg 01/24/19 09:12 01/25/19 20:08 Zofran IVP 4 mg Q6H PRN Administration Nausea/Vomiting Timolol Maleate 0 drop 01/24/19 15:00 01/25/19 20:03 Timoptic 0.5% Ophth Soln L EYE 1 drop TID EDELMIRA Administration - Exam NAD Neck: supple, symmetric, no JVD, no thyromegaly, no lymphadenopathy, no carotid bruit Heart: RRR, no murmur, no gallops, no rubs, normal peripheral pulses Respiratory: CTAB, no wheezes, no rales, no ronchi, normal chest expansion, no tachypnea, normal percussion Gastrointestinal: soft, non-tender, non-distended, normal bowel sounds, no palpable masses (PD catheter.), no hepatomegaly, no splenomegaly, no bruit Skin: normal turgor, no lesions, no rashes Neurological: CN's grossly intact, normal sensation to touch, no weakness, no focal deficits, no new deficit Musculoskeletal: normal tone, normal strength Psychiatric: somnolent Hosp A/P (1) Uremic encephalopathy Code(s): G93.41 - METABOLIC ENCEPHALOPATHY; N19 - UNSPECIFIED KIDNEY FAILURE Status: Acute (2) ESRD (end stage renal disease) on dialysis Code(s): N18.6 - END STAGE RENAL DISEASE; Z99.2 - DEPENDENCE ON RENAL DIALYSIS Status: Acute (3) Metabolic acidosis Code(s): E87.2 - ACIDOSIS Status: Acute (4) Uremia Code(s): N19 - UNSPECIFIED KIDNEY FAILURE Status: Acute (5) HTN (hypertension) Code(s): I10 - ESSENTIAL (PRIMARY) HYPERTENSION Status: Acute - Plan Discussed with Dr. Stevenson Will continue HD today. Goal is to have the BUN below 100. Resume Amlodipine in am.
[2019-01-25] MEDS ORDERED: hydrALAZINE 20 MG/ML VIAL SLOW IVP PRN (23:17)
[2019-01-26] MEDS: Acetaminophen 325 MG TAB PO PRN ×2 (00:12→05:05)
[2019-01-26] MEDS: AcetaZOLAMIDE 250 MG TAB PO SCH ×3 (05:05→17:32)
[2019-01-26 06:21] LABS: Anion Gap 20 mmol/L (10-20); BUN (Urea Nitrogen) 79 mg/dL (8.9-20.6); Calc. Creatinine Clearance 6 mL/min (70-130); Calcium 10.4 mg/dL (7.8-10.44); Carbon Dioxide 26 mmol/L (22-29); Chloride 95 mmol/L (98-107); Estimated GFR-MDRD 3; Glucose 107 mg/dL (70-105); Potassium 4.2 mmol/L (3.5-5.1); Sodium 137 mmol/L (136-145)
[2019-01-26] MEDS: Timolol 0.5% Ophth Soln 5 ml Bottle L EYE SCH ×3 (08:40→19:54)
[2019-01-26] MEDS: Carvedilol 6.25 MG TAB PO SCH ×2 (08:43→17:30)
[2019-01-26] MEDS: Amlodipine 5 MG TAB PO SCH ×2 (08:43→19:51)
[2019-01-26] MEDS: Famotidine/PF 20 mg/2ml Vial SLOW IVP SCH (08:43)
[2019-01-26] MEDS: Ondansetron PF 4 MG/2 ML Vial IVP PRN (08:44)
[2019-01-26] MEDS: Brimonidine Tartrate 0.2% Ophth Soln 5 ml Bottle L EYE SCH ×3 (08:54→19:54)
--- NOTE | 2019-01-26 11:15 | PDOC.HOSPP ---
- Subjective Subjective: Feeling a little better. Had an episode of emesis last night with dark red matter. Unclear if it was blood. He has not nausea now and and no abd pain. - Objective Vital Signs & Weight: Vital Signs (12 hours) Temp Pulse Resp BP BP BP Pulse Ox 01/26/19 08:43 85 141/81 H 01/26/19 08:40 89 141/81 H 01/26/19 07:04 97.6 F 89 18 141/81 H 99 01/26/19 03:44 99.3 F 82 20 131/80 99 01/26/19 00:12 135/78 01/25/19 23:53 98.2 F 84 20 160/108 H 100 01/25/19 23:30 84 Weight Weight 154 lb 9.6 oz I&O: 01/25/19 01/26/19 01/27/19 06:59 06:59 06:59 Intake Total 760 Output Total 2804 Balance -2044 Result Diagrams: 01/25/19 05:26 01/26/19 05:42 ROS - Medication Medications: Active Medications Generic Name Dose Route Start Last Admin Trade Name Freq PRN Reason Stop Dose Admin Acetaminophen 650 mg 01/24/19 09:12 01/26/19 05:05 Tylenol PO 650 mg Q4H PRN Administration Headache/Fever/Mild Pain (1-3) Acetazolamide 250 mg 01/24/19 23:59 01/26/19 05:05 Diamox PO 250 mg Q6HR EDELMIRA Administration Amlodipine Besylate 5 mg 01/24/19 21:00 01/26/19 08:43 Norvasc PO 5 mg BID EDELMIRA Administration Brimonidine Tartrate 0 drop 01/24/19 15:00 01/26/19 08:54 Alphagan 0.2% Ophth Soln L EYE 1 drp TID EDELMIRA Administration Carvedilol 6.25 mg 01/24/19 17:00 01/26/19 08:43 Coreg PO 6.25 mg BID-WM EDELMIRA Administration Famotidine 20 mg 01/26/19 09:00 01/26/19 08:43 Pepcid SLOW IVP 20 mg DAILY EDELMIRA Administration Hydralazine HCl 10 mg 01/25/19 23:17 01/25/19 23:30 Apresoline SLOW IVP 10 mg Q4H PRN Administration Hypertension Miscellaneous Medication 1 each 01/24/19 17:50 01/24/19 19:23 Pharmacy To Dose PO 02/03/19 17:51 1 each ONE PRN Administration Pharmacy to dose Ondansetron HCl 4 mg 01/24/19 09:12 01/24/19 14:06 Zofran Odt PO 4 mg Q6H PRN Administration Nausea/Vomiting Ondansetron HCl 4 mg 01/24/19 09:12 01/26/19 08:44 Zofran IVP 4 mg Q6H PRN Administration Nausea/Vomiting Timolol Maleate 0 drop 01/24/19 15:00 01/26/19 08:40 Timoptic 0.5% Ophth Soln L EYE 1 drop TID EDELMIRA Administration - Exam NAD, awake alert Eye - other findings: Left scleral inflammation and engorgement. Edema of the left medial brow. ENT: normocephalic atraumatic, no oropharyngeal lesions, moist mucosa Neck: supple, symmetric, no JVD, no thyromegaly, no lymphadenopathy, no carotid bruit Heart: RRR, no murmur, no gallops, no rubs, normal peripheral pulses Respiratory: CTAB, no wheezes, no rales, no ronchi, normal chest expansion, no tachypnea, normal percussion Gastrointestinal: soft, non-tender, non-distended, normal bowel sounds, no palpable masses, no hepatomegaly, no splenomegaly, no bruit Extremities: no cyanosis, no clubbing, no edema Skin: normal turgor, no lesions, no rashes Neurological: CN's grossly intact, normal sensation to touch, no weakness, no focal deficits, no new deficit Musculoskeletal: normal tone, normal strength, no muscle wasting Psychiatric: normal affect Hosp A/P (1) Uremic encephalopathy Code(s): G93.41 - METABOLIC ENCEPHALOPATHY; N19 - UNSPECIFIED KIDNEY FAILURE Status: Acute (2) ESRD (end stage renal disease) on dialysis Code(s): N18.6 - END STAGE RENAL DISEASE; Z99.2 - DEPENDENCE ON RENAL DIALYSIS Status: Chronic (3) Metabolic acidosis Code(s): E87.2 - ACIDOSIS Status: Acute (4) Uremia Code(s): N19 - UNSPECIFIED KIDNEY FAILURE Status: Acute (5) HTN (hypertension) Code(s): I10 - ESSENTIAL (PRIMARY) HYPERTENSION Status: Acute - Plan out of bed/ambulate Discussed with Dr. Stevenson Had prior work up for vasculitis that was negative. Will add PPI. SCD's Ambulate Monitor hgb.
--- NOTE | 2019-01-26 11:27 | PDOC.EVN ---
Event Note - Event Note Event Note: Discussed with Dr. Gary this morning. Reviewed his notes in the chart. 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 Several meds initiated. Planning injection later today. This is likely contributory to his headaches and possibly vomiting as well.
--- NOTE | 2019-01-26 11:34 | PRG ---
DATE OF SERVICE: 01/26/2019 SUBJECTIVE: Patient was seen and examined at bedside and overnight events noted. Patient denies any shortness of breath or chest pain or palpitation. No history of nausea or vomiting or diarrhea or fever or chills or cramps. OBJECTIVE: GENERAL: This is a well-built male, in no apparent distress. VITAL SIGNS: Temperature . Heart rate 89. Respiratory rate 18. Blood pressure 141/81. HEENT: Atraumatic, normocephalic. Oral mucosa is moist NECK: Supple. CARDIOVASCULAR: S1, S2 heard. Rate and rhythm regular. RESPIRATORY: Clear to auscultation. GASTROINTESTINAL: Abdomen is soft. MUSCULOSKELETAL: No tenderness. No edema. DERMATOLOGIC: No skin rash. NEUROLOGIC: Alert and awake and oriented X3. No focal neurologic deficits. Moving all the extremities. PSYCHIATRIC: Mood and affect normal. LABORATORY DATA: Potassium 4.3, BUN is 79, creatinine is 20.3. ASSESSMENT AND PLAN: 1. End-stage renal disease. We will continue on peritoneal dialysis. The patient had good hemodialysis today. Plan is to increase the peritoneal dialysis at home and monitor closely. 2. Edema, controlled. 3. Hypertension. 4. Anemia of chronic disease. Okay to discharge home. Continue peritoneal dialysis at home and follow up with Dialysis Clinic. Job ID: [id number]
[2019-01-26] MEDS: Ferric Citrate [Auryxia] 210 MG PO SCH ×6 (14:38→17:33)
[2019-01-27] MEDS: AcetaZOLAMIDE 250 MG TAB PO SCH ×4 (00:35→17:28)
[2019-01-27] MEDS: Famotidine/PF 20 mg/2ml Vial SLOW IVP SCH (08:56)
[2019-01-27] MEDS: Timolol 0.5% Ophth Soln 5 ml Bottle L EYE SCH ×3 (08:56→19:41)
[2019-01-27] MEDS: Brimonidine Tartrate 0.2% Ophth Soln 5 ml Bottle L EYE SCH ×3 (08:56→19:42)
[2019-01-27] MEDS: Amlodipine 5 MG TAB PO SCH (08:56)
[2019-01-27] MEDS: Carvedilol 6.25 MG TAB PO SCH ×2 (08:56→17:17)
[2019-01-27] MEDS: Ferric Citrate [Auryxia] 210 MG PO SCH ×4 (08:58→17:18)
[2019-01-27 09:14] LABS: #Basophils 0.1 thou/uL (0.0-0.2); #Eosinphils 0.4 thou/uL (0.0-0.7); #Lymphocytes 1.8 thou/uL (1.20-3.40); #Monocytes 0.4 thou/uL (0.11-0.59); #Neutrophils 3.1 thou/uL (1.40-6.50); %Basophils 0.9 % (0.0-1.0); %Eosinophils 6.4 % (0.0-10.0); %Lymphocytes 31.9 % (21.0-51.0); %Monocytes 6.5 % (0.0-10.0); %Neutrophils 54.3 % (42.0-75.0); Hemoglobin 12.9 g/dL (14.0-18.0); Mean Corpuscular HGB CONC 34.6 g/dL (32.0-36.0); Mean Corpuscular Hemoglobin 31.6 pg (27.0-31.0); Mean Corpuscular Volume 91.1 fL (78.0-98.0); Platelet Count 100 thou/uL (130-400); RBC Distribution Width 11.5 % (11.5-14.5); Red Blood Cell (RBC) Count 4.09 mill/uL (4.70-6.10); White Blood Cell (WBC) Count 5.7 thou/uL (4.8-10.8)
[2019-01-27 10:36] LABS: Anion Gap 26 mmol/L (10-20); BUN (Urea Nitrogen) 98 mg/dL (8.9-20.6); Calc. Creatinine Clearance 5 mL/min (70-130); Calcium 10.2 mg/dL (7.8-10.44); Carbon Dioxide 21 mmol/L (22-29); Chloride 95 mmol/L (98-107); Estimated GFR-MDRD 3; Glucose 99 mg/dL (70-105); Potassium 4.2 mmol/L (3.5-5.1); Sodium 138 mmol/L (136-145)
--- NOTE | 2019-01-27 11:02 | PRG ---
DATE OF SERVICE: 01/27/2019 SUBJECTIVE: Patient was seen and examined at bedside and overnight events noted. Patient denies any shortness of breath or chest pain or palpitation. No history of nausea or vomiting or diarrhea or fever or chills or cramps. OBJECTIVE: GENERAL: This is a well built male, in no apparent distress. VITAL SIGNS: Temperature 98.7, heart rate 91, respiratory rate 16, blood pressure 120/73. HEENT: Atraumatic, normocephalic. Oral mucosa is moist NECK: Supple. CARDIOVASCULAR: S1, S2 heard. Rate and rhythm regular. RESPIRATORY: Clear to auscultation. GASTROINTESTINAL: Abdomen is soft. MUSCULOSKELETAL: No tenderness. No edema. DERMATOLOGIC: No skin rash. NEUROLOGIC: Alert and awake and oriented X3. No focal neurologic deficits. Moving all the extremities. PSYCHIATRIC: Mood and affect normal. LABORATORY DATA: Pending. ASSESSMENT AND PLAN: 1. End-stage renal disease. We will continue on peritoneal dialysis. 2. Edema, controlled. 3. Hypertension. 4. Anemia of chronic disease. 5. Continue dialysis as tolerated. We will continue peritoneal dialysis for now and monitor closely. Job ID: [id number]
[2019-01-27 16:02] LABS: ANA Symphony (Qualitative) Negative (Negative); ANA Symphony (Quantitative) 0.2 Ratio (< 0.7 Negative); dsDNA IgG Antibody 2.6 IU/mL (<10 Negative)
[2019-01-27 17:10] VITALS: BP 121/76; TEMP 98.4
[2019-01-27] MEDS: Acetaminophen 325 MG TAB PO PRN (17:35)
--- NOTE | 2019-01-27 22:02 | DIS ---
DATE OF ADMISSION: 01/23/2019 DATE OF DISCHARGE: 01/27/2019 DISCHARGE DIAGNOSES: 1. Acute on chronic renal failure. 2. Acute uremia. 3. End-stage renal disease, on peritoneal dialysis. 4. Neovascularizing glaucoma of the left eye. 5. Nausea, vomiting. 6. Cephalgia. HISTORY OF PRESENT ILLNESS: This patient is a 23-year-old male with a history of end-stage renal disease on peritoneal dialysis, who presented to the emergency department with generalized weakness, fatigue, and headache. The headache was primarily left frontal in nature. The patient also reported a "ruptured vein" in his left eye. At the time of his presentation, labs revealed a BUN of 166 and a creatinine greater than 25. His exam was notable for severe hypersensitivity to light in the left eye with some generalized engorgement of the blood vessels. HOSPITAL COURSE: The patient was admitted to the hospital with acute on chronic renal failure. He was started on hemodialysis and continued with his peritoneal dialysis under the care of Dr. Schofield. With that, the patient's BUN and creatinine did come down. The patient was generally feeling better with this and the plan was to continue home peritoneal dialysis with increased time, close monitoring and followup. With regard to patient's left eye pain and inflammation, Dr. Jimenez was consulted. He felt the patient had neovascularizing glaucoma. He started Alphagan, timolol drops, as well as p.o. Diamox. He noted some inflammation over the left glabella area. He was concerned about this possibly being related to distended artery. 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 The patient had previously gone through significant autoimmune and vasculitis workup, which was negative. Ultimately, I believe the patient's nausea, vomiting, headaches and fatigue were likely as much related to the acute glaucoma as the uremia. Once the patient's uremia had improved, his nausea and vomiting resolved, and his glaucoma stabilized. Adequately, he was felt to be stable for discharge. This was discussed with Nephrology and Dr. Jimenez. It should be noted the patient had one episode of vomiting while in the hospital, which he thought might have been dark red old blood. He was started on a PPI and had his hemoglobin followed. He had no subsequent episodes and it was never clear that this in fact was blood in the emesis or not. DISPOSITION: The patient is discharged to home in good condition. DISCHARGE MEDICATIONS: He will continue on: 1. Diamox 250 p.o. q.6 hours. 2. Alphagan 0.2% eyedrops to the left eye t.i.d. 3. Timoptic to the left eye t.i.d. 4. Coreg 6.25 b.i.d. 5. Ferric citrate 420 p.o. t.i.d. 6. Amlodipine 5 mg b.i.d. 7. Rocaltrol 0.25 mcg p.o. daily. 8. Vitamin D3 of 2000 units p.o. b.i.d. FOLLOWUP: He is to follow up with Dr. Jimenez next week and he will follow up with Dr. Schofield as an outpatient. He can return to the hospital should he have any problems prior to the time of followup. TIME SPENT: Total time in discharge activities including [id number] time with the patient was 37 minutes. Job ID: [id number]
== END 2019-01-27 19:52 | disposition home or self-care (01) | DRG 682 ==
LOC: ERS 16:25 → 2SW 21:45 → OBSVTOIN 21:45 → T4-B 01-24 18:10
PROVIDERS: ADMIT Hospitalist; ATTEND Hospitalist
PROC: 5A1D70Z Performance of Urinary Filtration, Intermittent, Less than 6 Hours Per Day (ICD-10-PCS; principal; 2019-01-23)
DX: N17.9 Acute kidney failure, unspecified (principal); G93.41 Metabolic encephalopathy; E87.2 Acidosis; I12.0 Hypertensive chronic kidney disease with stage 5 chronic kidney disease or end stage renal disease; N18.6 End stage renal disease; D63.1 Anemia in chronic kidney disease; H40.9 Unspecified glaucoma; R51 Headache; Z99.2 Dependence on renal dialysis
CPT/HCPCS: 36415; 80048; 80053; 83735; 85025; 86038; 86225; 87340; 90935; 90945; 96360; G0257; J0360; J2405; J8597; Q0162; S0028